=== PATIENT | female | born 1985 | race Hispanic/Latino ===

== ENCOUNTER 2017-03-23 22:13 | Emergency (ER) | payer MEDICAID ==
[2017-03-23 22:33] VITALS: RESP 18; TEMP 98.2; O2SAT 100; BMI 25.0
[2017-03-23] MEDS ORDERED: Albuterol 0.083% Inhal Sol (2.5 mg/3 mL) UD IH STA (23:20)
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
[2017-03-23] MEDS ORDERED: Albuterol-Ipratrop 3 mg / 0.5 (3 ml) UD ONE (23:27)
[2017-03-24 00:48] VITALS: BP 127/74; PULSE 84
--- NOTE | 2017-03-24 10:58 | RAD ---
HISTORY: cough COMPARISON: 12/28/2015 TECHNIQUE: Chest PA and lateral FINDINGS: LUNGS: No active pulmonary disease. PLEURA: No significant pleural effusion identified. No pneumothorax apparent. CARDIOVASCULAR: Normal. OSSEOUS STRUCTURES: No significant abnormalities. VISUALIZED UPPER ABDOMEN: Normal. OTHER FINDINGS: None. IMPRESSION: No active disease.
== END 2017-03-24 00:48 | disposition home or self-care (01) ==
LOC: ED 22:13
DX: J20.9 Acute bronchitis, unspecified (principal); F17.210 Nicotine dependence, cigarettes, uncomplicated
CPT/HCPCS: 71020; 87804; 96372; 99283; J1885

== ENCOUNTER 2017-05-09 16:47 | Emergency (ER) | payer SELFPAY ==
[2017-05-09 16:51] VITALS: BMI 28.3
[2017-05-09 17:04] VITALS: RESP 18; TEMP 98.4; O2SAT 98
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
[2017-05-09 17:35] LABS: BASO # 0.02 K/mm3 (0.0-2.0); BASO % 0.3 % (0.0-3.0); EOS # 0.3 (0.0-0.7); EOS % 3.5 % (1.5-5.0); GRAN # 4.29 (1.4-6.5); GRAN % 56.1 % (50.0-68.0); HEMOGLOBIN 12.2 g/dL (12.0-16.0); LYMPH # 2.6 (1.2-3.4); LYMPH % 33.6 % (22.0-35.0); MEAN CELL VOLUME 83.9 fl (80.0-105.0); MEAN CORPUSCULAR HGB CONC 33.4 g/dl (31.0-37.0); MEAN PLATELET VOLUME 10.3 fl (7.0-11.0); MONO # 0.5 (0.1-0.6); MONO % 6.5 % (1.0-6.0); RBC 4.35 10^6/uL (3.5-6.1); RED CELL DISTRIBUTION WIDTH 13.4 % (11.5-14.5); WHITE BLOOD COUNT 7.7 10^3/ul (4.5-11.0)
[2017-05-09 17:45] LABS: ALB/GLOB RATIO 1.4 (1.1-1.8); ALBUMIN 4.2 g/dL (3.0-4.8); ALT/SGPT 62 U/L (7-56); AST/SGOT 50 U/L (14-36); BLOOD UREA NITROGEN 7 mg/dL (7-21); CALCIUM 9.4 mg/dL (8.4-10.5); GFR AFRICAN-AMERICAN > 60; GFR NON-AFRICAN AMERICAN > 60
[2017-05-09 17:53] LABS: B-TYPE NATRIURETIC PEPTIDE 51.7 pg/mL (0-450)
[2017-05-09 18:29] LABS: URINE BILIRUBIN NEGATIVE (NEGATIVE); URINE BLOOD NEGATIVE (NEGATIVE); URINE GLUCOSE (UA) NEGATIVE (NEGATIVE); URINE LEUKOCYTE ESTERASE NEGATIVE Leu/uL (NEGATIVE); URINE NITRATE NEGATIVE (NEGATIVE); URINE PROTEIN NEGATIVE mg/dL (<30 mg/dL); URINE UROBILINOGEN 0.2 E.U./dL (<1 E.U./dL)
[2017-05-09 18:30] LABS: URINE APPEARANCE CLEAR (CLEAR); URINE COLOR YELLOW (YELLOW)
[2017-05-09 18:49] VITALS: BP 103/76
[2017-05-09 18:53] VITALS: PULSE 86
--- NOTE | 2017-05-10 07:20 | RAD ---
PROCEDURE: CHEST RADIOGRAPH, 1 VIEW HISTORY: leg swelling COMPARISON: Chest radiographs 03/23/2017. FINDINGS: LUNGS: No infiltrate identified bilaterally. PLEURA: No pneumothorax or pleural fluid seen. CARDIOVASCULAR: Normal. OSSEOUS STRUCTURES: No significant abnormalities. VISUALIZED UPPER ABDOMEN: Normal. OTHER FINDINGS: None. IMPRESSION: No interval acute cardiopulmonary disease appreciated.
--- NOTE | 2017-05-10 18:24 | US ---
HISTORY: Leg pain and swelling. Evaluate for DVT PHYSICIAN(S): Dae Swan MD. TECHNIQUE: Duplex sonography and color-flow Doppler with graded compression were used to evaluate the deep venous systems of both lower extremities. FINDINGS: The visualized deep venous systems of both lower extremities are sonographically normal and compressible. Normal wave forms and augmentation are seen. There is no sonographic evidence for deep venous thrombosis in the visualized segments of both lower extremities. IMPRESSION: No sonographic evidence for deep venous thrombosis in the visualized segments of both lower extremities.
== END 2017-05-09 19:13 | disposition home or self-care (01) ==
LOC: ED 16:47
DX: R60.0 Localized edema (principal)
CPT/HCPCS: 71045; 80053; 81003; 83880; 85025; 93970; 96374; 96375; 99284; J1885; J1940

== ENCOUNTER 2017-07-13 14:49 | Emergency (ER) | payer MEDICAID ==
[2017-07-13 14:50] VITALS: BMI 28.3
[2017-07-13 15:18] VITALS: BP 108/68; PULSE 96; RESP 16; TEMP 98.6; O2SAT 96
[2017-07-13] MEDS ORDERED: Oxycodone/Acetaminophen 5/325 mg Tab PO STA (15:51)
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
== END 2017-07-13 16:41 | disposition home or self-care (01) ==
LOC: ED 14:49
DX: L25.9 Unspecified contact dermatitis, unspecified cause (principal); Z79.891 Long term (current) use of opiate analgesic

== ENCOUNTER 2017-07-14 12:47 | Inpatient (IN) | payer MEDICAID ==
[2017-07-14 13:51] LABS: BASO # 0.02 K/mm3 (0.0-2.0); BASO % 0.3 % (0.0-3.0); EOS # 0.3 (0.0-0.7); EOS % 3.7 % (1.5-5.0); GRAN # 3.94 (1.4-6.5); GRAN % 53.3 % (50.0-68.0); HEMOGLOBIN 13.3 g/dL (12.0-16.0); LYMPH # 2.6 (1.2-3.4); LYMPH % 35.1 % (22.0-35.0); MEAN CORPUSCULAR HEMOGLOBIN 27.8 pg (25.0-35.0); MEAN CORPUSCULAR HGB CONC 33.8 g/dl (31.0-37.0); MEAN PLATELET VOLUME 10.5 fl (7.0-11.0); MONO # 0.6 (0.1-0.6); MONO % 7.6 % (1.0-6.0); RBC 4.79 10^6/uL (3.5-6.1); RED CELL DISTRIBUTION WIDTH 14.9 % (11.5-14.5); WHITE BLOOD COUNT 7.4 10^3/ul (4.5-11.0)
[2017-07-14] MEDS: Morphine 4 mg/ml ISec IVP STA ×2 (14:12→15:49)
[2017-07-14] MEDS ORDERED: HYDROmorphone 1 mg/ml ISec IVP STA ×3 (14:21→15:48)
[2017-07-14] MEDS ORDERED: HYDROmorphone 1 mg/ml ISec ONE (14:24)
[2017-07-14 14:30] LABS: ALB/GLOB RATIO 1.5 (1.1-1.8); ALBUMIN 4.2 g/dL (3.0-4.8); CALCIUM 9.4 mg/dL (8.4-10.5); GFR AFRICAN-AMERICAN > 60; GFR NON-AFRICAN AMERICAN > 60
[2017-07-14 14:33] LABS: ALT/SGPT 169 U/L (7-56); AST/SGOT 160 U/L (14-36); BLOOD UREA NITROGEN 9 mg/dL (7-21)
[2017-07-14 15:41] LABS: URINE BILIRUBIN NEGATIVE (NEGATIVE); URINE BLOOD NEGATIVE (NEGATIVE); URINE GLUCOSE (UA) NEGATIVE (NEGATIVE); URINE LEUKOCYTE ESTERASE NEGATIVE Leu/uL (NEGATIVE); URINE PROTEIN NEGATIVE mg/dL (<30 mg/dL); URINE UROBILINOGEN 0.2 E.U./dL (<1 E.U./dL)
[2017-07-14 15:44] LABS: URINE APPEARANCE CLEAR (CLEAR); URINE COLOR YELLOW (YELLOW)
--- NOTE | 2017-07-14 16:25 | CT ---
PROCEDURE: CT Abdomen and Pelvis without intravenous contrast HISTORY: umbilical hernia pain COMPARISON: 12/29/2015 TECHNIQUE: Unenhanced study. Neither oral nor intravenous contrast administered. Radiation dose: Total exam DLP = 645.97 mGy-cm. This CT exam was performed using one or more of the following dose reduction techniques: Automated exposure control, adjustment of the mA and/or kV according to patient size, and/or use of iterative reconstruction technique. FINDINGS: LOWER THORAX: Unremarkable. LIVER: Unremarkable. No gross lesion or ductal dilatation. GALLBLADDER AND BILE DUCTS: Unremarkable. PANCREAS: Unremarkable. No gross lesion or ductal dilatation. SPLEEN: Unremarkable. ADRENALS: Unremarkable. No mass. KIDNEYS AND URETERS: Unremarkable. No hydronephrosis. No solid mass. VASCULATURE: Unremarkable. No aortic aneurysm. BOWEL: Diverticulosis without an acute inflammatory component or other associated pathologic process. Constipation without fecal impaction or obstruction. APPENDIX: Unremarkable. Normal appendix. PERITONEUM: Unremarkable. No free fluid. No free air. LYMPH NODES: Unremarkable. No enlarged lymph nodes. BLADDER: Unremarkable. REPRODUCTIVE: Unremarkable. BONES: No acute fracture. OTHER FINDINGS: None. IMPRESSION: No acute findings related to/accounting for the clinical presentation. Additional benign and/or incidental findings described above. No significant interval change compared to the prior examination(s).
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
[2017-07-14] MEDS ORDERED: Vitamins A & D Oint UD Foilpak TOP PRN (19:25)
[2017-07-14] MEDS ORDERED: Albuterol HFA 90 mcg/actuation (8 g) IH PRN (19:28)
[2017-07-14] MEDS ORDERED: Albuterol-Ipratrop 3 mg / 0.5 (3 ml) UD IH PRN (20:10)
[2017-07-14 20:24] VITALS: BMI 31.6
[2017-07-14] MEDS ORDERED: Pneumococcal 23-Valent Vaccine IM ONE (20:24)
[2017-07-14] MEDS ORDERED: Influenza Vaccine 60 mcg/0.5 mL SYR (4YR UP) IM ONE (20:24)
[2017-07-14] MEDS: Albuterol 0.083% Inhal Sol (2.5 mg/3 mL) UD IH SCH (20:25)
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
[2017-07-14] MEDS: Sodium Chloride 0.9% 1,000 ML IV SCH ×2 (21:03→22:22)
[2017-07-14] MEDS: HYDROmorphone 0.5 mg/0.5 ml ISec IVP PRN (21:03)
[2017-07-15] MEDS: Albuterol 0.083% Inhal Sol (2.5 mg/3 mL) UD IH SCH ×5 (00:23→16:35)
[2017-07-15] MEDS: HYDROmorphone 0.5 mg/0.5 ml ISec IVP PRN ×5 (01:31→21:03)
[2017-07-15] MEDS: Sodium Chloride 0.9% 1,000 ML IV SCH (05:54)
[2017-07-15 07:30] LABS: BASO # 0.03 K/mm3 (0.0-2.0); BASO % 0.5 % (0.0-3.0); EOS # 0.3 (0.0-0.7); EOS % 4.7 % (1.5-5.0); GRAN # 2.77 (1.4-6.5); GRAN % 43.6 % (50.0-68.0); HEMOGLOBIN 12.4 g/dL (12.0-16.0); LYMPH # 2.7 (1.2-3.4); LYMPH % 42.9 % (22.0-35.0); MEAN CELL VOLUME 82.5 fl (80.0-105.0); MEAN CORPUSCULAR HEMOGLOBIN 27.4 pg (25.0-35.0); MEAN CORPUSCULAR HGB CONC 33.2 g/dl (31.0-37.0); MEAN PLATELET VOLUME 10.3 fl (7.0-11.0); MONO # 0.5 (0.1-0.6); MONO % 8.3 % (1.0-6.0); RBC 4.52 10^6/uL (3.5-6.1); RED CELL DISTRIBUTION WIDTH 15.1 % (11.5-14.5); WHITE BLOOD COUNT 6.4 10^3/ul (4.5-11.0)
[2017-07-15 07:44] LABS: ALB/GLOB RATIO 1.5 (1.1-1.8); ALBUMIN 4.4 g/dL (3.0-4.8); ALT/SGPT 210 U/L (7-56); AST/SGOT 173 U/L (14-36); BLOOD UREA NITROGEN 11 mg/dL (7-21); CALCIUM 9.3 mg/dL (8.4-10.5); GFR AFRICAN-AMERICAN > 60; GFR NON-AFRICAN AMERICAN > 60
[2017-07-15] MEDS ORDERED: Bisacodyl 5mg EC Tab PO ONE (08:47)
[2017-07-15 08:51] LABS: BENZODIAZEPINES, UR NEGATIVE (NEGATIVE)
[2017-07-15 08:52] LABS: BARBITURATES, UR NEGATIVE (NEGATIVE); OPIATES, UR POSITIVE (NEGATIVE); PHENCYCLIDINE, UR NEGATIVE (NEGATIVE)
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
--- NOTE | 2017-07-15 10:15 | CP.PCM.PN ---
<Prasad Velasco - Last Filed: 07/15/17 10:11> Subjective - Date & Time of Evaluation Date of Evaluation: 07/15/17 Time of Evaluation: 06:00 - Subjective Subjective: Patient seen and evaluated bedside. No acute issues overnight. Patient complaining on non radiating abdominal pain locate din umbilical region. No other complaints at this time. Objective - Vital Signs/Intake and Output Vital Signs (last 24 hours): Temp Pulse Resp BP Pulse Ox 99 F 98 H 18 122/73 100 07/15/17 06:00 07/15/17 06:00 07/15/17 06:00 07/15/17 06:00 07/15/17 06:00 Intake and Output: 07/15/17 07/15/17 06:59 18:59 Intake Total Balance - Medications Medications: Current Medications Albuterol Sulfate (Albuterol 0.083% Inhal Vanessa (2.5 Mg/3 Ml) Ud) 2.5 mg IH Q4 [facility] Last Admin: 07/15/17 07:26 Dose: 2.5 mg Albuterol/Ipratropium (Duoneb 3 Mg/0.5 Mg (3 Ml) Ud) 3 ml IH Q2H PRN PRN Reason: Shortness of Breath Clonazepam (Klonopin) 1 mg PO 0800,1400,2200 [facility] PRN Reason: Protocol Last Admin: 07/15/17 08:38 Dose: 1 mg Cyclobenzaprine HCl (Flexeril) 10 mg PO 0800,1600,2200 [facility] Last Admin: 07/15/17 08:38 Dose: 10 mg Docusate Sodium (Colace) 100 mg PO TID [facility] Heparin Sodium (Porcine) (Heparin) 5,000 units SC Q12 [facility] PRN Reason: Protocol Last Admin: 07/14/17 22:21 Dose: Not Given Hydromorphone HCl (Dilaudid) 0.5 mg IVP Q4H PRN PRN Reason: Pain, moderate (4-7) Last Admin: 07/15/17 06:01 Dose: 0.5 mg Sodium Chloride (Sodium Chloride 0.9%) 1,000 mls @ 100 mls/hr IV .Q10H [facility] Last Admin: 07/15/17 05:54 Dose: Not Given Ketorolac Tromethamine (Toradol) 15 mg IM Q6 PRN PRN Reason: Pain, Mild (1-3) Stop: 07/19/17 19:27 Last Admin: 07/15/17 03:25 Dose: 15 mg Lorazepam (Ativan) 1 mg IVP Q4H PRN; Protocol PRN Reason: Anxiety Last Admin: 07/15/17 03:29 Dose: 1 mg Nicotine (Nicoderm Cq) 1 patch TD DAILY [facility] Ondansetron HCl (Zofran Inj) 4 mg IVP Q4H PRN PRN Reason: Nausea/Vomiting Pantoprazole Sodium (Protonix Inj) 40 mg IVP DAILY [facility] Polyethylene Glycol (Miralax) 17 gm PO BID [facility] Venlafaxine HCl (Effexor) 50 mg PO 0800,1600 [facility] Vitamin A (Vitamin A & D Oint Ud Foilpak) 1 ea TOP Q2 PRN PRN Reason: Dry mouth - Labs Labs: 07/15/17 07:00 07/15/17 07:00 APTT 31.1 Seconds (25.1-36.5) 07/15/17 07:00 - Constitutional Appears: Non-toxic, No Acute Distress - Head Exam Head Exam: ATRAUMATIC, NORMAL INSPECTION, NORMOCEPHALIC - Eye Exam Eye Exam: EOMI, Normal appearance - ENT Exam ENT Exam: Mucous Membranes Moist - Respiratory Exam Respiratory Exam: Clear to Ausculation Bilateral, NORMAL BREATHING PATTERN - Cardiovascular Exam Cardiovascular Exam: REGULAR RHYTHM - GI/Abdominal Exam GI & Abdominal Exam: Soft, Tenderness - Neurological Exam Neurological Exam: Alert, Awake, Oriented x3 Assessment and Plan - Assessment and Plan (Free Text) Assessment: 31 year old female with a past medical history of asthma, polysubstance abuse, and pancreatitis who presented to [facility] ED with complaints of abdominal pain. Plan: 1. Abdominal Pain -CT Abdomen/Pelvis showed diverticulosis and constipation without obstruction -CBD U/S and abdominal US pending -Normal Saline 100mls/hr -Protonix 40mg IVP daily -Colace 100mg TID -Toradol 15mg Q6 IM PRN and Flexeril 10mg TID for pain control -Zofran PRN for N/V -NPO except medications -Surgery and GI consulted, all recommendations appreciated -liver workup with hepatitis panel and autoimmune serologies -Constipation likely opioid induced, will place on aggressive bowel regimen, miralax bid, dulcolax one time 2. History of Asthma -Duonebs and Albuterol nebs PRN 3. History of Anxiety/Depression -Continue home Effexor and Klonopin -Ativan 1mg IV PRN for anxiety 4. History of Tobacco Abuse -Nicoderm CQ TD daily -Smoking cessation advised 5. History of Polysubstance Abuse -UDS positive for canniboids -Psychiatry consulted, all recommendations appreciated GI Prophylaxis: Protonix DVT Prophylaxis: Heparin and SCD's <Bin Navarro - Last Filed: 07/15/17 18:42> Objective - Vital Signs/Intake and Output Vital Signs (last 24 hours): Temp Pulse Resp BP Pulse Ox 99 F 98 H 18 122/73 100 07/15/17 06:00 07/15/17 06:00 07/15/17 06:00 07/15/17 06:00 07/15/17 06:00 Intake and Output: 07/15/17 07/15/17 06:59 18:59 Intake Total Balance - Medications Medications: Current Medications Albuterol/Ipratropium (Duoneb 3 Mg/0.5 Mg (3 Ml) Ud) 3 ml IH Q2H PRN PRN Reason: Shortness of Breath Benzonatate (Tessalon Perles) 100 mg PO TID [facility] Clonazepam (Klonopin) 1 mg PO 0800,1400,2200 [facility] PRN Reason: Protocol Last Admin: 07/15/17 15:47 Dose: 1 mg Cyclobenzaprine HCl (Flexeril) 10 mg PO 0800,1600,2200 [facility] Last Admin: 07/15/17 16:14 Dose: 10 mg Docusate Sodium (Colace) 100 mg PO TID [facility] Last Admin: 07/15/17 17:41 Dose: 100 mg Heparin Sodium (Porcine) (Heparin) 5,000 units SC Q12 [facility] PRN Reason: Protocol Last Admin: 07/15/17 10:27 Dose: Not Given Home Med (Home Med) 1 unit PO 0700,1500 [facility] Last Admin: 07/15/17 15:46 Dose: 1 unit Hydromorphone HCl (Dilaudid) 0.5 mg IVP Q3 PRN PRN Reason: Pain, moderate (4-7) Sodium Chloride (Sodium Chloride 0.9%) 1,000 mls @ 100 mls/hr IV .Q10H [facility] Last Admin: 07/15/17 05:54 Dose: Not Given Ketorolac Tromethamine (Toradol) 30 mg IVP Q6H [facility] Stop: 07/17/17 11:16 Last Admin: 07/15/17 17:41 Dose: 30 mg Lorazepam (Ativan) 1 mg IVP Q4H PRN; Protocol PRN Reason: Anxiety Last Admin: 07/15/17 03:29 Dose: 1 mg Nicotine (Nicoderm Cq) 1 patch TD DAILY [facility] Last Admin: 07/15/17 10:30 Dose: Not Given Ondansetron HCl (Zofran Inj) 4 mg IVP Q4H PRN PRN Reason: Nausea/Vomiting Pantoprazole Sodium (Protonix Inj) 40 mg IVP DAILY [facility] Last Admin: 07/15/17 10:07 Dose: 40 mg Polyethylene Glycol (Miralax) 17 gm PO BID [facility] Last Admin: 07/15/17 17:40 Dose: 17 gm Vitamin A (Vitamin A & D Oint Ud Foilpak) 1 ea TOP Q2 PRN PRN Reason: Dry mouth - Labs Labs: 07/15/17 07:00 07/15/17 07:00 PT 10.9 SECONDS (9.4-12.5) 07/15/17 13:10 INR 0.96 (0.93-1.08) 07/15/17 13:10 APTT 31.1 Seconds (25.1-36.5) 07/15/17 07:00 Attending/Attestation - Attestation I have personally seen and examined this patient.: Yes I have fully participated in the care of the patient.: Yes I have reviewed all pertinent clinical information, including history, physical exam and plan: Yes Notes (Text): 07/15/17 18:39 attending note; Patient seen and examined with resident. patient is a 31 year old female with a past medical history of asthma, polysubstance abuse, and pancreatitis is admitted with abdominal pain. CT abdomen showed diverticulosis and constipation. Surgery evaluation appreciated. Abdominal ultrasound showed dilated CBD. No intraductal or extra ductal dilatation. Hepatosplenomegaly noted. MRCP ordered. patient with a history of alcohol abuse in the past. currently denies any alcohol or drug abuse. Urine drug screen is positive for opiates and marijuana. Elevated LFTs; monitor closely. GI evaluation with Dr. Lynne appreciated. currently on clear liquid diet. anxiety depression; psychiatric evaluation appreciated. Continue home medication. Pain management with IV Dilaudid and Toradol. Patient was explained in detail about the side effects of narcotics. upon discharge the patient will follow up with PMD .
[2017-07-15] MEDS: POLYETHYLENE GLYCOL 3350 17 GM/Dose PACKET PO SCH ×2 (10:27→17:40)
--- NOTE | 2017-07-15 11:26 | CP.PCM.PN ---
Subjective - Date & Time of Evaluation Date of Evaluation: 07/15/17 Time of Evaluation: 11:23 - Subjective Subjective: Surgery: Dr. Meraz Patient continues to complain of pain to the right of the umbilicus. Pain reproduced with palpation. She denies n/v/f/c. Tolerating diet. Objective - Vital Signs/Intake and Output Vital Signs (last 24 hours): Temp Pulse Resp BP Pulse Ox 99 F 98 H 18 122/73 100 07/15/17 06:00 07/15/17 06:00 07/15/17 06:00 07/15/17 06:00 07/15/17 06:00 Intake and Output: 07/15/17 07/15/17 06:59 18:59 Intake Total Balance - Medications Medications: Current Medications Albuterol Sulfate (Albuterol 0.083% Inhal Vanessa (2.5 Mg/3 Ml) Ud) 2.5 mg IH Q4 [facility] Last Admin: 07/15/17 11:09 Dose: Not Given Albuterol/Ipratropium (Duoneb 3 Mg/0.5 Mg (3 Ml) Ud) 3 ml IH Q2H PRN PRN Reason: Shortness of Breath Clonazepam (Klonopin) 1 mg PO 0800,1400,2200 [facility] PRN Reason: Protocol Last Admin: 07/15/17 08:38 Dose: 1 mg Cyclobenzaprine HCl (Flexeril) 10 mg PO 0800,1600,2200 [facility] Last Admin: 07/15/17 08:38 Dose: 10 mg Docusate Sodium (Colace) 100 mg PO TID [facility] Last Admin: 07/15/17 10:08 Dose: 100 mg Heparin Sodium (Porcine) (Heparin) 5,000 units SC Q12 [facility] PRN Reason: Protocol Last Admin: 07/15/17 10:27 Dose: Not Given Hydromorphone HCl (Dilaudid) 0.5 mg IVP Q4H PRN PRN Reason: Pain, moderate (4-7) Last Admin: 07/15/17 10:08 Dose: 0.5 mg Sodium Chloride (Sodium Chloride 0.9%) 1,000 mls @ 100 mls/hr IV .Q10H [facility] Last Admin: 07/15/17 05:54 Dose: Not Given Ketorolac Tromethamine (Toradol) 15 mg IM Q6 PRN PRN Reason: Pain, Mild (1-3) Stop: 07/19/17 19:27 Last Admin: 07/15/17 03:25 Dose: 15 mg Lorazepam (Ativan) 1 mg IVP Q4H PRN; Protocol PRN Reason: Anxiety Last Admin: 07/15/17 03:29 Dose: 1 mg Nicotine (Nicoderm Cq) 1 patch TD DAILY [facility] Ondansetron HCl (Zofran Inj) 4 mg IVP Q4H PRN PRN Reason: Nausea/Vomiting Pantoprazole Sodium (Protonix Inj) 40 mg IVP DAILY [facility] Last Admin: 07/15/17 10:07 Dose: 40 mg Polyethylene Glycol (Miralax) 17 gm PO BID [facility] Last Admin: 07/15/17 10:27 Dose: Not Given Venlafaxine HCl (Effexor) 50 mg PO 0800,1600 [facility] Vitamin A (Vitamin A & D Oint Ud Foilpak) 1 ea TOP Q2 PRN PRN Reason: Dry mouth - Labs Labs: 07/15/17 07:00 07/15/17 07:00 APTT 31.1 Seconds (25.1-36.5) 07/15/17 07:00 - Constitutional Appears: Non-toxic, No Acute Distress - Head Exam Head Exam: ATRAUMATIC, NORMOCEPHALIC - Eye Exam Eye Exam: EOMI, Normal appearance - ENT Exam ENT Exam: Mucous Membranes Moist - Respiratory Exam Respiratory Exam: NORMAL BREATHING PATTERN. absent: Respiratory Distress - Cardiovascular Exam Cardiovascular Exam: REGULAR RHYTHM. absent: Tachycardia - GI/Abdominal Exam GI & Abdominal Exam: Soft, Tenderness (right to the umbilicus). absent: Guarding, Rigid, Hernia, Rebound Additional comments: No hernia appreciated on exam or CT scan - Neurological Exam Neurological Exam: Alert, Awake, Oriented x3 - Psychiatric Exam Psychiatric exam: Normal Affect, Normal Mood Assessment and Plan - Assessment and Plan (Free Text) Assessment: 31 y/o female w/ abdominal wall pain Plan: -no hernia appreciated on exam or CT scan, would recommend contrast CT but patient reports allergy to both IV and PO contrast -f/u ultrasound -cont reg diet -needs bowel regimen for constipation -no surgical intervention -further recs per Dr. Meraz [facility] PGY3
[2017-07-15] MEDS ORDERED: HYDROmorphone 0.5 mg/0.5 ml ISec IVP STA ×2 (11:34→17:06)
[2017-07-15] MEDS ORDERED: HYDROmorphone 1 mg/ml ISec IVP STA (11:54)
[2017-07-15 13:34] LABS: INR 0.96 (0.93-1.08); PROTHROMBIN TIME 10.9 SECONDS (9.4-12.5)
--- NOTE | 2017-07-15 14:42 | US ---
HISTORY: Elevated LFTs COMPARISON: 08/09/2014 TECHNIQUE: Sonographic evaluation of the abdomen. FINDINGS: LIVER: Measures 21.3 cm. Hepatopedal blood flow. Fatty infiltration manifest ultrasonographically as increased echogenicity of the liver parenchyma. No mass. No intrahepatic bile duct dilatation. GALLBLADDER: Status post cholecystectomy. No abnormality is seen in the gallbladder fossa. COMMON BILE DUCT: Measures 14.6 mm tapering to 12.4 mm. . Dilated common bile duct without intrinsic or extrinsic abnormality. PANCREAS: Unremarkable as visualized. No mass. No ductal dilatation. RIGHT KIDNEY: Measures 4 x 10.4cm. Normal echogenicity. No calculus, mass, or hydronephrosis. LEFT KIDNEY: Measures 4.3 x 10.5cm. Normal echogenicity. No calculus, mass, or hydronephrosis. SPLEEN: Splenomegaly. Orthogonal measurements 5.9 x 6 x 13.4 cm AORTA: No aneurysmal dilatation. IVC: Unremarkable. OTHER FINDINGS: None. IMPRESSION: Hepatosplenomegaly without focal abnormality. Hepatopetal blood flow. Dilated common bile duct without intrahepatic bile duct dilatation. No visible intra ductal or extrinsic abnormalities identified.
[2017-07-15] MEDS: VENLAFAXINE 50 MG PO SCH (15:46)
--- NOTE | 2017-07-15 16:38 | CP.PCM.PCO ---
Addendum Addendum: I met with patient at bedside. She is alert and well-oriented to month, location , year and circumstances. She defers on any psychiatric management at this time , indicating that she "had no idea that psychiatry was contacted". She denies any acute psychiatric issues. She is not suicidal and denies thoughts to harm others. Her thought process is clear and organized. Delusions were not elicited. She does not present as an acute danger to herself or others. At this time psychiatry will respect patient's wishes and sign off. Patient aware she may request our f/u at any time if she should change her mind. 07/15/17 16:37
[2017-07-15 17:22] LABS: TOTAL IRON BINDING CAPACITY 408 ug/dL (265-497)
[2017-07-15 17:38] LABS: % IRON SATURATION 29 % (20-55)
[2017-07-15 17:43] LABS: IMMUNOGLOBULIN A 147.3 mg/dL (70.0-400.0); IMMUNOGLOBULIN G 961.8 mg/dL (700.0-1600.0); IMMUNOGLOBULIN M 141.7 mg/dL (40.0-230.0)
[2017-07-15 17:46] LABS: IRON 121 ug/dL (45-180)
[2017-07-15] MEDS ORDERED: Albuterol 0.083% Inhal Sol (2.5 mg/3 mL) UD IH PRN (18:39)
[2017-07-16] MEDS: HYDROmorphone 0.5 mg/0.5 ml ISec IVP PRN ×5 (00:06→21:33)
[2017-07-16] MEDS: Sodium Chloride 0.9% 1,000 ML IV SCH ×3 (02:49→21:34)
[2017-07-16] MEDS ORDERED: Mineral Oil Enema 135 ml RC PRN (07:34)
[2017-07-16 07:46] LABS: BASO # 0.02 K/mm3 (0.0-2.0); BASO % 0.3 % (0.0-3.0); EOS # 0.3 (0.0-0.7); EOS % 4.8 % (1.5-5.0); GRAN # 2.54 (1.4-6.5); GRAN % 43.6 % (50.0-68.0); HEMOGLOBIN 11.4 g/dL (12.0-16.0); LYMPH # 2.6 (1.2-3.4); LYMPH % 44.8 % (22.0-35.0); MEAN CELL VOLUME 82.9 fl (80.0-105.0); MEAN CORPUSCULAR HEMOGLOBIN 27.4 pg (25.0-35.0); MEAN PLATELET VOLUME 10.1 fl (7.0-11.0); MONO # 0.4 (0.1-0.6); MONO % 6.5 % (1.0-6.0); RBC 4.16 10^6/uL (3.5-6.1); RED CELL DISTRIBUTION WIDTH 15.2 % (11.5-14.5); WHITE BLOOD COUNT 5.8 10^3/ul (4.5-11.0)
[2017-07-16 07:56] LABS: ALB/GLOB RATIO 1.4 (1.1-1.8); ALBUMIN 3.7 g/dL (3.0-4.8); ALT/SGPT 195 U/L (7-56); AST/SGOT 122 U/L (14-36); BLOOD UREA NITROGEN 8 mg/dL (7-21); CALCIUM 8.7 mg/dL (8.4-10.5); GFR AFRICAN-AMERICAN > 60; GFR NON-AFRICAN AMERICAN > 60
[2017-07-16] MEDS: VENLAFAXINE 50 MG PO SCH ×2 (08:28→16:41)
[2017-07-16 08:34] LABS: HEPATITIS B SURFACE AG Negative (NEGATIVE)
[2017-07-16 08:39] LABS: HEPATITIS A IGM NEGATIVE (NEGATIVE); HEPATITIS B CORE AB NEGATIVE (NEGATIVE)
[2017-07-16 08:51] LABS: HEPATITIS C ANTIBODY NEGATIVE (NEGATIVE)
[2017-07-16] MEDS: POLYETHYLENE GLYCOL 3350 17 GM/Dose PACKET PO SCH ×3 (10:00→18:42)
[2017-07-16] MEDS ORDERED: HYDROmorphone 1 mg/ml ISec IVP PRN ×2 (10:22→15:12)
--- NOTE | 2017-07-16 12:42 | CP.PCM.PN ---
<Zohaib Lind - Last Filed: 07/16/17 12:33> Subjective - Date & Time of Evaluation Date of Evaluation: 07/16/17 Time of Evaluation: 12:33 - Subjective Subjective: Medicine Progress Note: Patient seen and assessed at bedside. Patient and nursing staff report that patient had multiple episodes of abdominal pain requiring PRN Dilaudid administration. Patient reports that her current dosage is not relieving her pain for very long and request an increase in her dosage. She denies any bowel movements since her admission. She denies fever, chills, headache, chest pain, SOB, vomiting, diarrhea, pain with urination, or skin changes. Objective - Vital Signs/Intake and Output Vital Signs (last 24 hours): Temp Pulse Resp BP Pulse Ox 97.4 F L 60 18 109/64 97 07/16/17 07:43 07/16/17 07:43 07/16/17 07:43 07/16/17 07:43 07/16/17 07:43 Intake and Output: 07/16/17 07/16/17 06:59 18:59 Intake Total 1020 Balance 1020 - Medications Medications: Current Medications Albuterol Sulfate (Albuterol 0.083% Inhal Vanessa (2.5 Mg/3 Ml) Ud) 2.5 mg IH Q4 PRN PRN Reason: Shortness of Breath Albuterol/Ipratropium (Duoneb 3 Mg/0.5 Mg (3 Ml) Ud) 3 ml IH Q2H PRN PRN Reason: Shortness of Breath Benzonatate (Tessalon Perles) 100 mg PO TID [facility] Clonazepam (Klonopin) 1 mg PO 0800,1400,2200 [facility] PRN Reason: Protocol Last Admin: 07/16/17 08:28 Dose: 1 mg Cyclobenzaprine HCl (Flexeril) 10 mg PO 0800,1600,2200 [facility] Last Admin: 07/16/17 08:28 Dose: 10 mg Heparin Sodium (Porcine) (Heparin) 5,000 units SC Q12 [facility] PRN Reason: Protocol Last Admin: 07/16/17 12:15 Dose: Not Given Home Med (Home Med) 1 unit PO 0700,1500 [facility] Last Admin: 07/16/17 08:28 Dose: 1 unit Hydromorphone HCl (Dilaudid) 1 mg IVP ONCE PRN PRN Reason: Pain, severe (8-10) Hydromorphone HCl (Dilaudid) 0.5 mg IVP Q4H PRN PRN Reason: Pain, moderate (4-7) Sodium Chloride (Sodium Chloride 0.9%) 1,000 mls @ 100 mls/hr IV .Q10H [facility] Last Admin: 07/16/17 02:56 Dose: 100 mls/hr Ketorolac Tromethamine (Toradol) 30 mg IVP Q6H [facility] Stop: 07/17/17 11:16 Last Admin: 07/16/17 12:15 Dose: 30 mg Lorazepam (Ativan) 1 mg IVP Q4H PRN; Protocol PRN Reason: Anxiety Last Admin: 07/16/17 09:27 Dose: 1 mg Mineral Oil (Fleet Mineral Oil Enema) 135 ml RC BID PRN PRN Reason: Constipation Nicotine (Nicoderm Cq) 1 patch TD DAILY [facility] Last Admin: 07/15/17 10:30 Dose: Not Given Ondansetron HCl (Zofran Inj) 4 mg IVP Q4H PRN PRN Reason: Nausea/Vomiting Pantoprazole Sodium (Protonix Ec Tab) 40 mg PO 0600 [facility] Polyethylene Glycol (Miralax) 17 gm PO TID [facility] Vitamin A (Vitamin A & D Oint Ud Foilpak) 1 ea TOP Q2 PRN PRN Reason: Dry mouth - Labs Labs: 07/16/17 07:00 07/16/17 07:00 PT 10.9 SECONDS (9.4-12.5) 07/15/17 13:10 INR 0.96 (0.93-1.08) 07/15/17 13:10 APTT 31.1 Seconds (25.1-36.5) 07/15/17 07:00 - Constitutional Appears: Non-toxic, No Acute Distress - Head Exam Head Exam: ATRAUMATIC, NORMOCEPHALIC - Eye Exam Eye Exam: EOMI, Normal appearance Pupil Exam: NORMAL ACCOMODATION, PERRL - ENT Exam ENT Exam: Mucous Membranes Moist, Normal Exam - Neck Exam Neck Exam: Full ROM, Normal Inspection. absent: Lymphadenopathy - Respiratory Exam Respiratory Exam: Clear to Ausculation Bilateral, NORMAL BREATHING PATTERN. absent: Accessory Muscle Use, Rales, Rhonchi, Wheezes, Respiratory Distress - Cardiovascular Exam Cardiovascular Exam: REGULAR RHYTHM, RRR, +S1, +S2. absent: Bradycardia, Tachycardia, Clicks, Diastolic murmur, Gallop, Irregular Rhythm, JVD, Rubs, +S4 , Murmur - GI/Abdominal Exam GI & Abdominal Exam: Distended, Soft, Tenderness (Diffusely to light palpation; Disproportionate to exam and clinical impression), Hernia (Reducible umbilical hernia), Normal Bowel Sounds, Rebound. absent: Bruit, Firm, Guarding, Rigid, Diminished Bowel Sounds, Hyperactive Bowel Sounds, Hypoactive Bowel Sounds, Mass , Organomegaly, Pulsatile Mass - Extremities Exam Extremities Exam: Full ROM, Normal Capillary Refill, Normal Inspection. absent : Calf Tenderness, Joint Swelling, Pedal Edema, Tenderness - Neurological Exam Neurological Exam: Alert, Awake, CN II-XII Intact, Normal Gait, Oriented x3 - Psychiatric Exam Psychiatric exam: Normal Affect, Normal Mood - Skin Skin Exam: Dry, Intact, Normal Color, Warm Assessment and Plan - Assessment and Plan (Free Text) Assessment: 31 year old female with a past medical history of asthma, polysubstance abuse, and pancreatitis who presented with periumbilical abdominal pain. Patient was found to have elevated AST and ALT. CT Abdomen/Pelvis showed diverticulosis and constipation. Abdominal Ultrasound revealed CBD measuring 14mm and tapering to 12mm with previous CBD measuring 9mm in 2015 on MRCP post cholecystectomy. MRCP was recommended and ordered. Surgery also recommended that high dose opioid's should be avoided and tapered as tolerated to prevent worsening ileus. Plan: 1. Abdominal Pain -CT Abdomen/Pelvis showed diverticulosis and constipation without obstruction -CBD Ultrasound showed dilated CBD to 14.6mm with no intrinsic or extrinsic abnormality -MRCP pending -Tapered Dilaudid from 0.5mg IV Q3 PRN to Q4 PRN at the same dose as to prevent worsening ileus -Continue Miralax and Fleet Enema's PRN for constipation -Continue Protonix 40mg IVP daily -Continue Toradol and Flexeril for pain control -Continue Zofran PRN for N/V -Continue Normal Saline 100mls/hr -NPO diet for MRCP -Surgery and GI consulted, all recommendations appreciated 2. Transaminitis -Downtrending -Hepatitis panel negative -Autoimmune workup pending 3. History of Asthma -Continue Duonebs and Albuterol nebs PRN -Continue Tessalon Perles 4. History of Anxiety/Depression -Continue home Effexor and Klonopin -Continue Ativan 1mg IV PRN for anxiety 5. History of Tobacco Abuse -Continue Nicoderm CQ TD daily -Smoking cessation advised 6. History of Polysubstance Abuse -UDS positive for opiates (taken after Dilaudid administration) and marijuana -Patient denies use and need for psychiatric evaluation -Provided recommendations for cessation of all illicit drugs -Psychiatry consulted, all recommendations appreciated GI Prophylaxis: Protonix DVT Prophylaxis: Heparin and SCD's Patient seen and case discussed with attending, Dr. Nabil Menon. <Nabil Menon B - Last Filed: 07/16/17 18:14> Objective - Vital Signs/Intake and Output Vital Signs (last 24 hours): Temp Pulse Resp BP Pulse Ox 98 F 80 20 118/77 97 07/16/17 14:00 07/16/17 14:00 07/16/17 14:00 07/16/17 14:00 07/16/17 14:00 - Medications Medications: Current Medications Albuterol Sulfate (Albuterol 0.083% Inhal Vanessa (2.5 Mg/3 Ml) Ud) 2.5 mg IH Q4 PRN PRN Reason: Shortness of Breath Albuterol/Ipratropium (Duoneb 3 Mg/0.5 Mg (3 Ml) Ud) 3 ml IH Q2H PRN PRN Reason: Shortness of Breath Benzonatate (Tessalon Perles) 100 mg PO TID [facility] Last Admin: 07/16/17 13:54 Dose: 100 mg Clonazepam (Klonopin) 1 mg PO 0800,1400,2200 [facility] PRN Reason: Protocol Last Admin: 07/16/17 13:53 Dose: 1 mg Cyclobenzaprine HCl (Flexeril) 10 mg PO 0800,1600,2200 [facility] Last Admin: 07/16/17 08:28 Dose: 10 mg Heparin Sodium (Porcine) (Heparin) 5,000 units SC Q12 [facility] PRN Reason: Protocol Last Admin: 07/16/17 12:15 Dose: Not Given Home Med (Home Med) 1 unit PO 0700,1500 [facility] Last Admin: 07/16/17 08:28 Dose: 1 unit Hydromorphone HCl (Dilaudid) 0.5 mg IVP Q4H PRN PRN Reason: Pain, moderate (4-7) Hydromorphone HCl (Dilaudid) 1 mg IVP ONCE PRN PRN Reason: Pain, severe (8-10) Sodium Chloride (Sodium Chloride 0.9%) 1,000 mls @ 100 mls/hr IV .Q10H [facility] Last Admin: 07/16/17 02:56 Dose: 100 mls/hr Ketorolac Tromethamine (Toradol) 30 mg IVP Q6H [facility] Stop: 07/17/17 11:16 Last Admin: 07/16/17 12:15 Dose: 30 mg Lorazepam (Ativan) 1 mg IVP Q4H PRN; Protocol PRN Reason: Anxiety Last Admin: 07/16/17 13:35 Dose: 1 mg Mineral Oil (Fleet Mineral Oil Enema) 135 ml RC BID PRN PRN Reason: Constipation Nicotine (Nicoderm Cq) 1 patch TD DAILY [facility] Last Admin: 07/15/17 10:30 Dose: Not Given Ondansetron HCl (Zofran Inj) 4 mg IVP Q4H PRN PRN Reason: Nausea/Vomiting Pantoprazole Sodium (Protonix Ec Tab) 40 mg PO 0600 [facility] Polyethylene Glycol (Miralax) 17 gm PO TID [facility] Vitamin A (Vitamin A & D Oint Ud Foilpak) 1 ea TOP Q2 PRN PRN Reason: Dry mouth - Labs Labs: PT 10.9 SECONDS (9.4-12.5) 07/15/17 13:10 INR 0.96 (0.93-1.08) 07/15/17 13:10 APTT 31.1 Seconds (25.1-36.5) 07/15/17 07:00 Attending/Attestation - Attestation I have personally seen and examined this patient.: Yes I have fully participated in the care of the patient.: Yes I have reviewed all pertinent clinical information, including history, physical exam and plan: Yes Notes (Text): I have seen and examined the patient with the resident. Agree with the above note with the following additions/ exceptions: Briefly this is 31 year old female with history of asthma, alcohol abuse, polysubstance abuse (narcotics, marijuana), cholecystectomy and pancreatitis who was admitted with abdominal pain and found to have transaminitis. CT abdomen showed diverticulosis and constipation. Abdominal ultrasound showed dilated CBD and hepatomegaly. MRCP ordered and is pending at this time. GI on board. Discussed with the patient in detail regarding tapering of narcotics as this may worsen ileus and constipation. Patient verbalized understanding. Urine drug screen is positive for opiates and marijuana. Upon discharge the patient will follow up with PMD . Dr Nabil Menon
--- NOTE | 2017-07-16 18:16 | CP.PCM.PN ---
Subjective - Date & Time of Evaluation Date of Evaluation: 07/16/17 Time of Evaluation: 18:14 - Subjective Subjective: Surgery: Dr. Palma Pt seen and examined. Resting comfortably in bed. Still has abd pain. No N/V. For MRCP today. Objective - Vital Signs/Intake and Output Vital Signs (last 24 hours): Temp Pulse Resp BP Pulse Ox 98 F 80 20 118/77 97 07/16/17 14:00 07/16/17 14:00 07/16/17 14:00 07/16/17 14:00 07/16/17 14:00 - Medications Medications: Current Medications Albuterol Sulfate (Albuterol 0.083% Inhal Vanessa (2.5 Mg/3 Ml) Ud) 2.5 mg IH Q4 PRN PRN Reason: Shortness of Breath Albuterol/Ipratropium (Duoneb 3 Mg/0.5 Mg (3 Ml) Ud) 3 ml IH Q2H PRN PRN Reason: Shortness of Breath Benzonatate (Tessalon Perles) 100 mg PO TID [facility] Last Admin: 07/16/17 13:54 Dose: 100 mg Clonazepam (Klonopin) 1 mg PO 0800,1400,2200 [facility] PRN Reason: Protocol Last Admin: 07/16/17 13:53 Dose: 1 mg Cyclobenzaprine HCl (Flexeril) 10 mg PO 0800,1600,2200 [facility] Last Admin: 07/16/17 08:28 Dose: 10 mg Heparin Sodium (Porcine) (Heparin) 5,000 units SC Q12 [facility] PRN Reason: Protocol Last Admin: 07/16/17 12:15 Dose: Not Given Home Med (Home Med) 1 unit PO 0700,1500 [facility] Last Admin: 07/16/17 16:41 Dose: 1 unit Hydromorphone HCl (Dilaudid) 0.5 mg IVP Q4H PRN PRN Reason: Pain, moderate (4-7) Sodium Chloride (Sodium Chloride 0.9%) 1,000 mls @ 100 mls/hr IV .Q10H [facility] Last Admin: 07/16/17 02:56 Dose: 100 mls/hr Ketorolac Tromethamine (Toradol) 30 mg IVP Q6H [facility] Stop: 07/17/17 11:16 Last Admin: 07/16/17 12:15 Dose: 30 mg Lorazepam (Ativan) 1 mg IVP Q4H PRN; Protocol PRN Reason: Anxiety Last Admin: 07/16/17 17:05 Dose: 1 mg Mineral Oil (Fleet Mineral Oil Enema) 135 ml RC BID PRN PRN Reason: Constipation Nicotine (Nicoderm Cq) 1 patch TD DAILY [facility] Last Admin: 07/15/17 10:30 Dose: Not Given Ondansetron HCl (Zofran Inj) 4 mg IVP Q4H PRN PRN Reason: Nausea/Vomiting Pantoprazole Sodium (Protonix Ec Tab) 40 mg PO 0600 [facility] Polyethylene Glycol (Miralax) 17 gm PO TID [facility] Vitamin A (Vitamin A & D Oint Ud Foilpak) 1 ea TOP Q2 PRN PRN Reason: Dry mouth - Labs Labs: PT 10.9 SECONDS (9.4-12.5) 07/15/17 13:10 INR 0.96 (0.93-1.08) 07/15/17 13:10 APTT 31.1 Seconds (25.1-36.5) 07/15/17 07:00 - Constitutional Appears: Non-toxic, No Acute Distress - Head Exam Head Exam: ATRAUMATIC, NORMOCEPHALIC - Eye Exam Eye Exam: EOMI - ENT Exam ENT Exam: Mucous Membranes Moist, Normal External Ear Exam - Neck Exam Neck Exam: Full ROM - Respiratory Exam Respiratory Exam: NORMAL BREATHING PATTERN. absent: Accessory Muscle Use, Respiratory Distress - GI/Abdominal Exam GI & Abdominal Exam: Soft, Tenderness (diffuse). absent: Distended, Firm, Guarding, Rigid, Rebound - Extremities Exam Extremities Exam: absent: Calf Tenderness, Pedal Edema - Neurological Exam Neurological Exam: Alert, Awake, Oriented x3 - Skin Skin Exam: Dry, Warm Assessment and Plan - Assessment and Plan (Free Text) Assessment: 31F w. abd pain and dilated CBD -LFTs trending down -F/U MRCP -Further recommendations pending MRCP results -d/w attending Zemaitis PGY3
--- NOTE | 2017-07-16 20:12 | MRI ---
EXAM: MR Abdomen Without Intravenous Contrast, MRCP Protocol EXAM DATE/TIME: 07/16/2017 5:05 PM CLINICAL HISTORY: 31 years old, female; Signs and symptoms; Other: Dilated cbd; Prior surgery; Surgery date: 6+ months; Surgery type: Appendix; Additional info: Cbd dilatation TECHNIQUE: Multiplanar magnetic resonance images of the abdomen without intravenous contrast using MRCP protocol. COMPARISON: No relevant prior studies available. FINDINGS: BILE DUCTS: Biliary ductal dilatation, involving the common bile duct, which measures up to 1.2 cm in diameter. There is smooth tapering of the common bile duct distally, in the head of the pancreas region. No common bile duct stones are visualized. No evidence of diffuse intrahepatic biliary ductal dilatation. GALLBLADDER: Gallbladder is surgically absent. LIVER: Liver is enlarged, and demonstrates fatty infiltration. PANCREAS: No findings to suggest significant acute pancreatitis. No definite focal pancreatic mass is seen. No evidence of significant pancreatic ductal dilatation. IMPRESSION: - Dilatation of the common bile duct, 1.2 cm, with tapering of the common bile duct distally, in the head of the pancreas region. No cause for this finding is seen on this exam. No common bile duct stones visualized. The dilatation could be secondary to the postcholecystectomy state. Recommend correlation with LFTs for laboratory evidence of biliary obstruction, and further workup as clinically indicated, such as with ERCP. - See above for remaining findings.
[2017-07-17] MEDS: HYDROmorphone 0.5 mg/0.5 ml ISec IVP PRN ×3 (03:21→12:10)
[2017-07-17] MEDS ORDERED: HYDROmorphone 0.5 mg/0.5 ml ISec IVP STA (03:56)
[2017-07-17] MEDS ORDERED: Pantoprazole 40 mg EC Tab PO SCH (06:00)
--- NOTE | 2017-07-17 07:49 | CP.PCM.PN ---
<Daniella Hill - Last Filed: 07/17/17 12:21> Subjective - Date & Time of Evaluation Date of Evaluation: 07/17/17 Time of Evaluation: 07:30 - Subjective Subjective: GI Fellow PGY4 Progress Note Pt seen and evaluated at bedside, pt sitting in bed appears comfortable with no N/V, F/C. She reports extreme pain and requesting pain medication. Per nursing, pt has refused her miralax and fleet enema. Pt did use a tap water enema by herself and reported a large BM to nursing but not witnessed. Pt reports her pain is getting worse and abdomen more distended. Tolerating liquid diet. ROS: A 12pt ROS was negative except as above. Objective - Vital Signs/Intake and Output Vital Signs (last 24 hours): Temp Pulse Resp BP Pulse Ox 98 F 80 20 118/77 97 07/16/17 14:00 07/16/17 14:00 07/16/17 14:00 07/16/17 14:00 07/16/17 14:00 Intake and Output: 07/17/17 07/17/17 06:59 18:59 Intake Total 1200 Balance 1200 - Medications Medications: Current Medications Albuterol Sulfate (Albuterol 0.083% Inhal Vanessa (2.5 Mg/3 Ml) Ud) 2.5 mg IH Q4 PRN PRN Reason: Shortness of Breath Albuterol/Ipratropium (Duoneb 3 Mg/0.5 Mg (3 Ml) Ud) 3 ml IH Q2H PRN PRN Reason: Shortness of Breath Benzonatate (Tessalon Perles) 100 mg PO TID [facility] Last Admin: 07/16/17 18:44 Dose: Not Given Clonazepam (Klonopin) 1 mg PO 0800,1400,2200 [facility] PRN Reason: Protocol Last Admin: 07/16/17 21:33 Dose: 1 mg Cyclobenzaprine HCl (Flexeril) 10 mg PO 0800,1600,2200 [facility] Last Admin: 07/16/17 21:33 Dose: 10 mg Heparin Sodium (Porcine) (Heparin) 5,000 units SC Q12 [facility] PRN Reason: Protocol Last Admin: 07/16/17 21:35 Dose: Not Given Home Med (Home Med) 1 unit PO 0700,1500 [facility] Last Admin: 07/16/17 16:41 Dose: 1 unit Hydromorphone HCl (Dilaudid) 0.5 mg IVP Q4H PRN PRN Reason: Pain, moderate (4-7) Last Admin: 07/17/17 03:21 Dose: 0.5 mg Sodium Chloride (Sodium Chloride 0.9%) 1,000 mls @ 100 mls/hr IV .Q10H [facility] Last Admin: 07/16/17 21:34 Dose: Not Given Ketorolac Tromethamine (Toradol) 30 mg IVP Q6H [facility] Stop: 07/17/17 11:16 Last Admin: 07/17/17 04:08 Dose: 30 mg Lorazepam (Ativan) 1 mg IVP Q4H PRN; Protocol PRN Reason: Anxiety Last Admin: 07/17/17 03:27 Dose: 1 mg Mineral Oil (Fleet Mineral Oil Enema) 135 ml RC BID PRN PRN Reason: Constipation Nicotine (Nicoderm Cq) 1 patch TD DAILY [facility] Last Admin: 07/16/17 18:42 Dose: Not Given Ondansetron HCl (Zofran Inj) 4 mg IVP Q4H PRN PRN Reason: Nausea/Vomiting Pantoprazole Sodium (Protonix Ec Tab) 40 mg PO 0600 [facility] Last Admin: 07/17/17 05:26 Dose: Not Given Polyethylene Glycol (Miralax) 17 gm PO TID [facility] Last Admin: 07/16/17 18:42 Dose: Not Given Vitamin A (Vitamin A & D Oint Ud Foilpak) 1 ea TOP Q2 PRN PRN Reason: Dry mouth - Labs Labs: PT 10.9 SECONDS (9.4-12.5) 07/15/17 13:10 INR 0.96 (0.93-1.08) 07/15/17 13:10 APTT 31.1 Seconds (25.1-36.5) 07/15/17 07:00 - Constitutional Appears: Non-toxic, No Acute Distress - Head Exam Head Exam: ATRAUMATIC, NORMAL INSPECTION, NORMOCEPHALIC - Eye Exam Eye Exam: EOMI, Normal appearance, PERRL Pupil Exam: PERRL - ENT Exam ENT Exam: Mucous Membranes Moist - Neck Exam Neck Exam: Full ROM, Normal Inspection - Respiratory Exam Respiratory Exam: Clear to Ausculation Bilateral, NORMAL BREATHING PATTERN - Cardiovascular Exam Cardiovascular Exam: REGULAR RHYTHM, RRR, +S1 - GI/Abdominal Exam GI & Abdominal Exam: Distended, Soft, Tenderness, Normal Bowel Sounds. absent: Firm, Guarding, Rigid, Organomegaly - Rectal Exam Rectal Exam: Deferred - Extremities Exam Extremities Exam: Full ROM, Normal Inspection - Back Exam Back Exam: NORMAL INSPECTION - Neurological Exam Neurological Exam: Alert, Awake, Oriented x3 - Psychiatric Exam Psychiatric exam: Normal Affect, Normal Mood - Skin Skin Exam: Dry, Intact, Normal Color, Warm Assessment and Plan - Assessment and Plan (Free Text) Assessment: This is a 31yF with pmhx of alcoholic pancreatitis presenting with periumbilical pain. 1. Abdominal pain 2. Elevated LFTs 3. Fatty Liver 4. Constipation 5. Hx of alcohol and polysubstance abuse Plan: -Continue supportive care -Avoid narcotics with worsening constipation and developing ileus -Pt with small umbilical hernia, pain out of proportion to exam -Constipation, pt on aggressive bowel regimen, miralax tid, enemas -Diet as tolerated -Pt with elevated LFTs trending down, likely from fatty liver as seen on imaging with significant weight gain as documented -MRCP with CBD 1.2cm likely post choelcystectomy, no CBD stone, no pancreatic mass -Recommend EUS to look for any PD or CBD pathology as an elective outpt procedure, no biliary pain -Hepatitis panel negative and autoimmune serologies pending -Pt will need to followup outpt with LFT monitoring, likely due to fatty liver -Please call with any questions or concerns <Luis Enrique Javed - Last Filed: 07/17/17 13:02> Objective - Vital Signs/Intake and Output Vital Signs (last 24 hours): Temp Pulse Resp BP Pulse Ox 98.0 F 81 18 112/68 96 07/17/17 08:38 07/17/17 08:38 07/17/17 08:38 07/17/17 08:38 07/17/17 08:38 Intake and Output: 07/17/17 07/17/17 06:59 18:59 Intake Total 1200 Balance 1200 - Medications Medications: Current Medications Albuterol/Ipratropium (Duoneb 3 Mg/0.5 Mg (3 Ml) Ud) 3 ml IH Q2H PRN PRN Reason: Shortness of Breath Benzonatate (Tessalon Perles) 100 mg PO TID [facility] Last Admin: 07/17/17 10:58 Dose: 100 mg Clonazepam (Klonopin) 1 mg PO 0800,1400,2200 [facility] PRN Reason: Protocol Last Admin: 07/17/17 08:00 Dose: 1 mg Cyclobenzaprine HCl (Flexeril) 10 mg PO 0800,1600,2200 [facility] Last Admin: 07/17/17 08:01 Dose: 10 mg Heparin Sodium (Porcine) (Heparin) 5,000 units SC Q12 [facility] PRN Reason: Protocol Last Admin: 07/17/17 10:59 Dose: Not Given Home Med (Home Med) 1 unit PO 0700,1500 [facility] Last Admin: 07/17/17 08:00 Dose: 1 unit Hydromorphone HCl (Dilaudid) 0.5 mg IVP Q4H PRN PRN Reason: Pain, moderate (4-7) Last Admin: 07/17/17 12:10 Dose: 0.5 mg Sodium Chloride (Sodium Chloride 0.9%) 1,000 mls @ 100 mls/hr IV .Q10H [facility] Last Admin: 07/17/17 10:58 Dose: Not Given Lorazepam (Ativan) 1 mg IVP Q4H PRN; Protocol PRN Reason: Anxiety Last Admin: 07/17/17 12:11 Dose: 1 mg Mineral Oil (Fleet Mineral Oil Enema) 135 ml RC BID PRN PRN Reason: Constipation Nicotine (Nicoderm Cq) 1 patch TD DAILY [facility] Last Admin: 07/17/17 10:58 Dose: Not Given Ondansetron HCl (Zofran Inj) 4 mg IVP Q4H PRN PRN Reason: Nausea/Vomiting Pantoprazole Sodium (Protonix Ec Tab) 40 mg PO 0600 [facility] Last Admin: 07/17/17 05:26 Dose: Not Given Polyethylene Glycol (Miralax) 17 gm PO TID [facility] Last Admin: 07/17/17 11:03 Dose: Not Given Vitamin A (Vitamin A & D Oint Ud Foilpak) 1 ea TOP Q2 PRN PRN Reason: Dry mouth - Labs Labs: 07/17/17 08:30 07/17/17 08:30 PT 10.9 SECONDS (9.4-12.5) 07/15/17 13:10 INR 0.96 (0.93-1.08) 07/15/17 13:10 APTT 31.1 Seconds (25.1-36.5) 07/15/17 07:00 Attending/Attestation - Attestation I have personally seen and examined this patient.: Yes I have fully participated in the care of the patient.: Yes I have reviewed all pertinent clinical information, including history, physical exam and plan: Yes Notes (Text): 07/17/17 12:56 31 year old female with past medical history of alcohol abuse, s/p cholecystectomy admitted with 4 days of periumbilical abdominal pain, also with elevated LFTs and dilated CBD. Reviewed her imaging with radiology. She has a chronically dilated CBD that tapers abruptly as it enters the duodenum, without evidence of stone. Would recommend an elective EUS for further evaluation this area. Her abdominal pain does not fit a pancreaticobiliary pattern so this finding of a dilated CBD is unlikely to be related to her abdominal pain. An EUS could also be useful to evaluate her for chronic pancreatitis, although CT did not show evidence of this, an EUS might. Chronic narcotic use may also cause dilation of the bile duct, as well as causing other chronic GI side effects including constipation. Would minimize narcotics if possible. Her elevated LFTs are in a hepatocellular pattern, not a cholestatic pattern. This could be related to some combination of past Etoh abuse and NAFLD. Eval for other chronic liver disease has been so far negative. Ok to discharge from GI standpoint. Patient may follow up as outpatient for EUS.
[2017-07-17] MEDS: VENLAFAXINE 50 MG PO SCH (08:00)
[2017-07-17 09:08] LABS: CERULOPLASMIN 27 mg/dL (18-53)
[2017-07-17 09:11] LABS: BASO # 0.01 K/mm3 (0.0-2.0); BASO % 0.2 % (0.0-3.0); EOS # 0.3 (0.0-0.7); EOS % 4.8 % (1.5-5.0); GRAN # 3.35 (1.4-6.5); GRAN % 51.8 % (50.0-68.0); HEMOGLOBIN 11.2 g/dL (12.0-16.0); LYMPH # 2.3 (1.2-3.4); LYMPH % 36.2 % (22.0-35.0); MEAN CELL VOLUME 83.3 fl (80.0-105.0); MEAN CORPUSCULAR HEMOGLOBIN 27.5 pg (25.0-35.0); MEAN CORPUSCULAR HGB CONC 32.9 g/dl (31.0-37.0); MEAN PLATELET VOLUME 10.3 fl (7.0-11.0); MONO # 0.5 (0.1-0.6); RBC 4.08 10^6/uL (3.5-6.1); RED CELL DISTRIBUTION WIDTH 15.1 % (11.5-14.5); WHITE BLOOD COUNT 6.5 10^3/ul (4.5-11.0)
[2017-07-17 09:22] LABS: ALB/GLOB RATIO 1.3 (1.1-1.8); ALBUMIN 3.7 g/dL (3.0-4.8); ALT/SGPT 155 U/L (7-56); AST/SGOT 67 U/L (14-36); BLOOD UREA NITROGEN 11 mg/dL (7-21); CALCIUM 9.5 mg/dL (8.4-10.5); GFR AFRICAN-AMERICAN > 60; GFR NON-AFRICAN AMERICAN > 60
[2017-07-17] MEDS: POLYETHYLENE GLYCOL 3350 17 GM/Dose PACKET PO SCH ×2 (10:58→11:03)
[2017-07-17] MEDS: Sodium Chloride 0.9% 1,000 ML IV SCH (10:58)
--- NOTE | 2017-07-17 11:13 | CP.PCM.PN ---
Subjective - Date & Time of Evaluation Date of Evaluation: 07/17/17 Time of Evaluation: 11:11 - Subjective Subjective: Surgery: Dr. Meraz Pt seen and examined. Continues to have abd pain, unchanged, no alleviating factors. Tolerating CLD. No N/V. Objective - Vital Signs/Intake and Output Vital Signs (last 24 hours): Temp Pulse Resp BP Pulse Ox 98.0 F 81 18 112/68 96 07/17/17 08:38 07/17/17 08:38 07/17/17 08:38 07/17/17 08:38 07/17/17 08:38 Intake and Output: 07/17/17 07/17/17 06:59 18:59 Intake Total 1200 Balance 1200 - Medications Medications: Current Medications Albuterol/Ipratropium (Duoneb 3 Mg/0.5 Mg (3 Ml) Ud) 3 ml IH Q2H PRN PRN Reason: Shortness of Breath Benzonatate (Tessalon Perles) 100 mg PO TID [facility] Last Admin: 07/17/17 10:58 Dose: 100 mg Clonazepam (Klonopin) 1 mg PO 0800,1400,2200 [facility] PRN Reason: Protocol Last Admin: 07/17/17 08:00 Dose: 1 mg Cyclobenzaprine HCl (Flexeril) 10 mg PO 0800,1600,2200 [facility] Last Admin: 07/17/17 08:01 Dose: 10 mg Heparin Sodium (Porcine) (Heparin) 5,000 units SC Q12 [facility] PRN Reason: Protocol Last Admin: 07/17/17 10:59 Dose: Not Given Home Med (Home Med) 1 unit PO 0700,1500 [facility] Last Admin: 07/17/17 08:00 Dose: 1 unit Hydromorphone HCl (Dilaudid) 0.5 mg IVP Q4H PRN PRN Reason: Pain, moderate (4-7) Last Admin: 07/17/17 08:01 Dose: 0.5 mg Sodium Chloride (Sodium Chloride 0.9%) 1,000 mls @ 100 mls/hr IV .Q10H [facility] Last Admin: 07/17/17 10:58 Dose: Not Given Ketorolac Tromethamine (Toradol) 30 mg IVP Q6H [facility] Stop: 07/17/17 11:16 Last Admin: 07/17/17 08:00 Dose: 30 mg Lorazepam (Ativan) 1 mg IVP Q4H PRN; Protocol PRN Reason: Anxiety Last Admin: 07/17/17 03:27 Dose: 1 mg Mineral Oil (Fleet Mineral Oil Enema) 135 ml RC BID PRN PRN Reason: Constipation Nicotine (Nicoderm Cq) 1 patch TD DAILY [facility] Last Admin: 07/17/17 10:58 Dose: Not Given Ondansetron HCl (Zofran Inj) 4 mg IVP Q4H PRN PRN Reason: Nausea/Vomiting Pantoprazole Sodium (Protonix Ec Tab) 40 mg PO 0600 [facility] Last Admin: 07/17/17 05:26 Dose: Not Given Polyethylene Glycol (Miralax) 17 gm PO TID [facility] Last Admin: 07/17/17 11:03 Dose: Not Given Vitamin A (Vitamin A & D Oint Ud Foilpak) 1 ea TOP Q2 PRN PRN Reason: Dry mouth - Labs Labs: 07/17/17 08:30 07/17/17 08:30 PT 10.9 SECONDS (9.4-12.5) 07/15/17 13:10 INR 0.96 (0.93-1.08) 07/15/17 13:10 APTT 31.1 Seconds (25.1-36.5) 07/15/17 07:00 - Constitutional Appears: Non-toxic, No Acute Distress - Head Exam Head Exam: ATRAUMATIC, NORMOCEPHALIC - Eye Exam Eye Exam: EOMI - ENT Exam ENT Exam: Mucous Membranes Moist - Neck Exam Neck Exam: Full ROM - Respiratory Exam Respiratory Exam: NORMAL BREATHING PATTERN. absent: Accessory Muscle Use, Respiratory Distress - GI/Abdominal Exam GI & Abdominal Exam: Distended (mild), Soft, Tenderness (R side mary anne-umbilical) , Hernia (R side mary anne-umbilical ). absent: Firm, Guarding, Rigid, Rebound - Extremities Exam Extremities Exam: absent: Calf Tenderness, Pedal Edema - Neurological Exam Neurological Exam: Alert, Awake, Oriented x3 - Psychiatric Exam Psychiatric exam: Normal Affect, Normal Mood - Skin Skin Exam: Dry, Normal Color, Warm Assessment and Plan - Assessment and Plan (Free Text) Assessment: 31F w. abd pain 2/2 enlarged CBD vs. ventral hernia -MRCP: CBD 1.2cm w. distal tapering, likely related to cholecystectomy, however recommend EUS to r/o other possible etiology -no plans for hernia repair until CBD workup complete -d/w attending [facility] PGY3
[2017-07-17 15:59] VITALS: BP 118/75; PULSE 82; RESP 20; TEMP 97.7; O2SAT 97
== END 2017-07-17 18:11 | disposition home or self-care (01) | DRG 813 ==
LOC: ED 12:47 → ERH 18:48 → 5RSO 20:00 → OBSVTOIN 07-16 14:53
PROVIDERS: ADMIT Internal Medicine; ATTEND Hospitalist
DX: R10.32 Left lower quadrant pain (principal); F14.10 Cocaine abuse, uncomplicated; K83.8 Other specified diseases of biliary tract; K76.0 Fatty (change of) liver, not elsewhere classified; K86.1 Other chronic pancreatitis; J45.909 Unspecified asthma, uncomplicated; F32.9 Major depressive disorder, single episode, unspecified; F41.9 Anxiety disorder, unspecified; F12.10 Cannabis abuse, uncomplicated; F17.200 Nicotine dependence, unspecified, uncomplicated; F10.10 Alcohol abuse, uncomplicated; K59.09 Other constipation; K42.9 Umbilical hernia without obstruction or gangrene; K57.90 Diverticulosis of intestine, part unspecified, without perforation or abscess without bleeding; R16.2 Hepatomegaly with splenomegaly, not elsewhere classified

== ENCOUNTER 2017-07-22 21:04 | Inpatient (IN) | payer MEDICAID ==
[2017-07-22 21:20] VITALS: BMI 30.6
[2017-07-22] MEDS ORDERED: Sodium Chloride 0.9% 1,000 ML IV STA (21:36)
[2017-07-22] MEDS ORDERED: HYDROmorphone 0.5 mg/0.5 ml ISec IVP STA (21:38)
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
[2017-07-22] MEDS ORDERED: Morphine 2 mg/ml ISec IVP PRN (22:24)
[2017-07-22 22:30] LABS: BASO # 0.02 K/mm3 (0.0-2.0); BASO % 0.2 % (0.0-3.0); EOS # 0.1 (0.0-0.7); EOS % 1.5 % (1.5-5.0); GRAN # 5.4 (1.4-6.5); GRAN % 57.5 % (50.0-68.0); HEMOGLOBIN 13.2 g/dL (12.0-16.0); LYMPH # 3.2 (1.2-3.4); LYMPH % 33.8 % (22.0-35.0); MEAN CORPUSCULAR HEMOGLOBIN 27.8 pg (25.0-35.0); MEAN CORPUSCULAR HGB CONC 34.7 g/dl (31.0-37.0); MONO # 0.7 (0.1-0.6); RBC 4.75 10^6/uL (3.5-6.1); RED CELL DISTRIBUTION WIDTH 14.7 % (11.5-14.5); WHITE BLOOD COUNT 9.4 10^3/ul (4.5-11.0)
[2017-07-22 22:38] LABS: PROTHROMBIN TIME 11.7 SECONDS (9.4-12.5)
[2017-07-22 22:39] LABS: INR 1.03 (0.93-1.08); PARTIAL THROMBOPLASTIN TIME 34.8 Seconds (25.1-36.5)
[2017-07-22 22:41] LABS: ALB/GLOB RATIO 1.6 (1.1-1.8); ALBUMIN 4.9 g/dL (3.0-4.8); ALT/SGPT 102 U/L (7-56); AMYLASE < 30 U/L (35-125); AST/SGOT 78 U/L (14-36); BLOOD UREA NITROGEN 13 mg/dL (7-21); CALCIUM 10.3 mg/dL (8.4-10.5); GFR AFRICAN-AMERICAN > 60; GFR NON-AFRICAN AMERICAN > 60; LIPASE 26 U/L (23-300)
[2017-07-22 23:19] LABS: URINE BILIRUBIN NEGATIVE (NEGATIVE); URINE BLOOD NEGATIVE (NEGATIVE); URINE GLUCOSE (UA) NEGATIVE (NEGATIVE); URINE LEUKOCYTE ESTERASE NEGATIVE Leu/uL (NEGATIVE); URINE PROTEIN 30 mg/dL (<30 mg/dL); URINE UROBILINOGEN 0.2 E.U./dL (<1 E.U./dL)
[2017-07-22 23:32] LABS: URINE APPEARANCE SL CLOUDY (CLEAR); URINE COLOR YELLOW (YELLOW)
[2017-07-22 23:41] LABS: URINE RBC 0 - 2 /hpf (0-2); URINE WBC 0 - 2 /hpf (0-6)
--- NOTE | 2017-07-23 00:20 | CT ---
EXAM: CT Abdomen and Pelvis Without Intravenous Contrast CLINICAL HISTORY: 31 years old, female; Pain; Abdominal pain; Periumbilical; Patient HX: Umbilical pain TECHNIQUE: Axial computed tomography images of the abdomen and pelvis without intravenous contrast. All CT scans at this facility use one or more dose reduction techniques, viz.: automated exposure control; ma/kV adjustment per patient size (including targeted exams where dose is matched to indication; i.e. head); or iterative reconstruction technique. Coronal and sagittal reformatted images were created and reviewed. COMPARISON: CT - ABD PELVIS W/O PO OR IV CONT 2017-07-14 16:03, MRCP 07/16/2017 FINDINGS: Lower thorax: No acute findings. ABDOMEN: Liver: Unremarkable. Gallbladder and bile ducts: There has been a cholecystectomy. Moderate central and extrahepatic bile duct dilation is unchanged. The common bile duct measures 12 mm. The distal common bile duct stone. Pancreas: Unremarkable. No ductal dilation. Spleen: Unremarkable. No splenomegaly. Adrenals: Unremarkable. No mass. Kidneys and ureters: Unremarkable. No obstructing stones. No hydronephrosis. Stomach and bowel: No obstruction. The descending colon is mildly thick walled but is likely secondary to nondistention. Mild colitis is not completely excluded. Appendix: No findings to suggest acute appendicitis. Normal appendix. PELVIS: Bladder: Unremarkable. No stones. Reproductive: Unremarkable as visualized. ABDOMEN and PELVIS: Intraperitoneal space: Unremarkable. No free air. No significant fluid collection. Bones/joints: No acute fracture. No dislocation. Soft tissues: Unremarkable. Vasculature: Unremarkable. No abdominal aortic aneurysm. Lymph nodes: Unremarkable. No enlarged lymph nodes. IMPRESSION: Mildly thickwalled descending colon most likely secondary to nondistention. Mild colitis is not excluded. No evidence of acute appendicitis. Cholecystectomy with stable extrahepatic bile duct dilation.
[2017-07-23] MEDS ORDERED: Morphine 2 mg/ml ISec IVP STA ×3 (00:44→09:32)
[2017-07-23] MEDS ORDERED: Albuterol-Ipratrop 3 mg / 0.5 (3 ml) UD IH PRN (02:04)
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
[2017-07-23 07:54] LABS: HEMOGLOBIN 11.6 g/dL (12.0-16.0); MEAN CELL VOLUME 80.8 fl (80.0-105.0); MEAN CORPUSCULAR HEMOGLOBIN 27.6 pg (25.0-35.0); MEAN CORPUSCULAR HGB CONC 34.1 g/dl (31.0-37.0); MEAN PLATELET VOLUME 9.7 fl (7.0-11.0); RBC 4.21 10^6/uL (3.5-6.1); WHITE BLOOD COUNT 6.5 10^3/ul (4.5-11.0)
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
[2017-07-23 08:08] LABS: ALB/GLOB RATIO 1.4 (1.1-1.8); ALBUMIN 3.9 g/dL (3.0-4.8); ALT/SGPT 122 U/L (7-56); AST/SGOT 120 U/L (14-36); BLOOD UREA NITROGEN 11 mg/dL (7-21); CALCIUM 8.8 mg/dL (8.4-10.5); GFR AFRICAN-AMERICAN > 60; GFR NON-AFRICAN AMERICAN > 60
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
[2017-07-23] MEDS: POLYETHYLENE GLYCOL 3350 17 GM/Dose PACKET PO SCH ×3 (09:47→17:47)
--- NOTE | 2017-07-23 11:51 | CARD ---
APPROVED REPORT EKG Measurement Heart [id number] <Conclusion> Normal sinus rhythm Normal ECG
[2017-07-23] MEDS: Morphine 2 mg/ml ISec IVP PRN ×3 (12:41→21:00)
[2017-07-24] MEDS: Morphine 2 mg/ml ISec IVP PRN ×4 (00:30→22:17)
[2017-07-24 07:01] LABS: HEMOGLOBIN 11.6 g/dL (12.0-16.0); MEAN CELL VOLUME 81.5 fl (80.0-105.0); MEAN CORPUSCULAR HEMOGLOBIN 27.2 pg (25.0-35.0); MEAN CORPUSCULAR HGB CONC 33.3 g/dl (31.0-37.0); MEAN PLATELET VOLUME 10.2 fl (7.0-11.0); RBC 4.27 10^6/uL (3.5-6.1); RED CELL DISTRIBUTION WIDTH 15.1 % (11.5-14.5)
[2017-07-24 07:52] LABS: ALB/GLOB RATIO 1.3 (1.1-1.8); ALBUMIN 3.6 g/dL (3.0-4.8); ALT/SGPT 94 U/L (7-56); AST/SGOT 56 U/L (14-36); BLOOD UREA NITROGEN 5 mg/dL (7-21); CALCIUM 8.9 mg/dL (8.4-10.5); GFR AFRICAN-AMERICAN > 60; GFR NON-AFRICAN AMERICAN > 60
--- NOTE | 2017-07-24 07:54 | CP.PCM.PN ---
Subjective - Date & Time of Evaluation Date of Evaluation: 07/24/17 Time of Evaluation: 07:50 - Subjective Subjective: Surgery Progress Note: Patient seen and examined at bedside. No acute events overnight. Pt reports abdominal pain overnight. Denies fever, chills, nausea, vomiting. Objective - Vital Signs/Intake and Output Vital Signs (last 24 hours): Temp Pulse Resp BP Pulse Ox 98 F 85 17 116/74 95 07/23/17 14:00 07/23/17 14:00 07/23/17 14:00 07/23/17 14:00 07/23/17 14:00 Intake and Output: 07/24/17 07/24/17 06:59 18:59 Intake Total 0 Balance 0 - Medications Medications: Current Medications Albuterol/Ipratropium (Duoneb 3 Mg/0.5 Mg (3 Ml) Ud) 3 ml IH [id number] PRN PRN Reason: Shortness of Breath Clonazepam (Klonopin) 0.5 mg PO TID PRN; Protocol PRN Reason: Restlessness Last Admin: 07/23/17 23:20 Dose: 0.5 mg Cyclobenzaprine HCl (Flexeril) 10 mg PO TID PRN PRN Reason: Muscle spasm Last Admin: 07/23/17 08:15 Dose: 10 mg Gabapentin (Neurontin) 100 mg PO TID ABBI PRN Reason: Protocol Last Admin: 07/23/17 17:45 Dose: 100 mg Heparin Sodium (Porcine) (Heparin) 5,000 units SC Q12 ABBI PRN Reason: Protocol Last Admin: 07/23/17 22:58 Dose: Not Given Hydroxyzine Pamoate (Vistaril) 50 mg PO Q8 PRN; Protocol PRN Reason: Anxiety Ketorolac Tromethamine (Toradol) 30 mg IVP Q4 PRN PRN Reason: Pain, moderate (4-7) Lorazepam (Ativan) 2 mg IVP Q4 PRN; Protocol PRN Reason: Agitation Last Admin: 07/24/17 05:39 Dose: 2 mg Morphine Sulfate (Morphine) 2 mg IVP Q4H PRN PRN Reason: Pain, severe (8-10) Last Admin: 07/24/17 05:39 Dose: 2 mg Nicotine (Nicoderm Cq) 1 patch TD DAILY PRN PRN Reason: URGE TO SMOKE Ondansetron HCl (Zofran Inj) 4 mg IVP Q4H PRN PRN Reason: Nausea/Vomiting Pantoprazole Sodium (Protonix Inj) 40 mg IVP DAILY [facility] Last Admin: 07/23/17 09:44 Dose: 40 mg Polyethylene Glycol (Miralax) 17 gm PO BID [facility] Last Admin: 07/23/17 17:47 Dose: Not Given Venlafaxine HCl (Effexor) 56.25 mg PO BID [facility] Last Admin: 07/23/17 18:53 Dose: 56.25 mg - Labs Labs: 07/24/17 06:15 07/23/17 07:45 PT 11.7 SECONDS (9.4-12.5) 07/22/17 22:15 INR 1.03 (0.93-1.08) 07/22/17 22:15 APTT 34.8 Seconds (25.1-36.5) 07/22/17 22:15 - Constitutional Appears: Non-toxic, No Acute Distress - Head Exam Head Exam: ATRAUMATIC, NORMOCEPHALIC - Eye Exam Eye Exam: EOMI, PERRL. absent: Conjunctival injection, Nystagmus, Scleral icterus Pupil Exam: NORMAL ACCOMODATION, PERRL. absent: Fixed, Irregular, Unequal - ENT Exam ENT Exam: Mucous Membranes Moist - Neck Exam Neck Exam: Full ROM - Respiratory Exam Respiratory Exam: Clear to Ausculation Bilateral, NORMAL BREATHING PATTERN. absent: Rales, Rhonchi, Wheezes, Stridor - Cardiovascular Exam Cardiovascular Exam: RRR, +S1, +S2. absent: Murmur - GI/Abdominal Exam GI & Abdominal Exam: Soft, Tenderness, Normal Bowel Sounds. absent: Firm, Guarding, Rigid - Extremities Exam Extremities Exam: Normal Inspection. absent: Calf Tenderness, Pedal Edema - Back Exam Back Exam: NORMAL INSPECTION - Neurological Exam Neurological Exam: Alert, Awake, Oriented x3 - Psychiatric Exam Psychiatric exam: Normal Affect, Normal Mood - Skin Skin Exam: Dry, Normal Color, Warm Assessment and Plan - Assessment and Plan (Free Text) Assessment: 31 y/o female with abdominal pain, transaminitis with dilated CBD: -CT abd pelvis: thick descending colon, could be under distention. -patient scheduled for EUS today with GI, prior to surgical intervention -medical management per primary -further recs per Dr. Meraz
[2017-07-24 09:37] LABS: BENZODIAZEPINES, UR NEGATIVE (NEGATIVE)
[2017-07-24 09:47] LABS: BARBITURATES, UR NEGATIVE (NEGATIVE); OPIATES, UR POSITIVE (NEGATIVE); PHENCYCLIDINE, UR NEGATIVE (NEGATIVE)
[2017-07-24] MEDS: POLYETHYLENE GLYCOL 3350 17 GM/Dose PACKET PO SCH ×2 (10:00→17:48)
[2017-07-24] MEDS ORDERED: Midazolam 2 MG/2 ML VIAL ONE ×3 (11:17→11:54)
[2017-07-24] MEDS ORDERED: Midazolam 2 MG/2 ML VIAL IVP ONE (11:19)
[2017-07-24] MEDS ORDERED: Propofol 10 mg/ml Inj (20 ML) ONE (11:54)
[2017-07-24] MEDS: Sodium Chloride 0.9% 1,000 ML IV SCH (14:01)
--- NOTE | 2017-07-24 14:38 | CP.PCM.PN ---
<Zohaib Lind - Last Filed: 07/24/17 14:31> Subjective - Date & Time of Evaluation Date of Evaluation: 07/24/17 Time of Evaluation: 14:31 - Subjective Subjective: Medicine Progress Note: Patient seen and assessed at bedside. Patient reports that she didn't sleep well due to continued abdominal pain that she reports is not being adequately controlled with morphine. However, patient endorses that she is aware that opiate based medications are only harming her and potentially causing her more pain. Otherwise, patient has no complaints. She denies fevers, chills, headache , chest pain, palpitations, SOB, cough, N/V/D/C, pain with urination, skin changes or any numbness/tingling/weakness of any extremity. Objective - Vital Signs/Intake and Output Vital Signs (last 24 hours): Temp Pulse Resp BP Pulse Ox 98 F 69 16 119/71 100 07/24/17 13:30 07/24/17 13:30 07/24/17 13:30 07/24/17 13:30 07/24/17 13:30 Intake and Output: 07/24/17 07/24/17 06:59 18:59 Intake Total 0 Balance 0 - Medications Medications: Current Medications Albuterol/Ipratropium (Duoneb 3 Mg/0.5 Mg (3 Ml) Ud) 3 ml IH [id number] PRN PRN Reason: Shortness of Breath Clonazepam (Klonopin) 0.5 mg PO TID PRN; Protocol PRN Reason: Restlessness Last Admin: 07/23/17 23:20 Dose: 0.5 mg Cyclobenzaprine HCl (Flexeril) 10 mg PO TID PRN PRN Reason: Muscle spasm Last Admin: 07/23/17 08:15 Dose: 10 mg Gabapentin (Neurontin) 100 mg PO TID ABBI PRN Reason: Protocol Last Admin: 07/24/17 10:00 Dose: Not Given Heparin Sodium (Porcine) (Heparin) 5,000 units SC Q12 ABBI PRN Reason: Protocol Last Admin: 07/24/17 12:05 Dose: Not Given Hydroxyzine Pamoate (Vistaril) 50 mg PO Q8 PRN; Protocol PRN Reason: Anxiety Sodium Chloride (Sodium Chloride 0.9%) 1,000 mls @ 100 mls/hr IV .Q10H [facility] Last Admin: 07/24/17 14:01 Dose: 100 mls/hr Ketorolac Tromethamine (Toradol) 30 mg IVP Q4 PRN PRN Reason: Pain, moderate (4-7) Lorazepam (Ativan) 2 mg IVP Q4 PRN; Protocol PRN Reason: Agitation Last Admin: 07/24/17 05:39 Dose: 2 mg Morphine Sulfate (Morphine) 2 mg IVP Q4H PRN PRN Reason: Pain, severe (8-10) Last Admin: 07/24/17 13:59 Dose: 2 mg Nicotine (Nicoderm Cq) 1 patch TD DAILY PRN PRN Reason: URGE TO SMOKE Ondansetron HCl (Zofran Inj) 4 mg IVP Q4H PRN PRN Reason: Nausea/Vomiting Pantoprazole Sodium (Protonix Inj) 40 mg IVP Q12 [facility] Polyethylene Glycol (Miralax) 17 gm PO BID [facility] Last Admin: 07/24/17 10:00 Dose: Not Given Sucralfate (Carafate Tab) 1 gm PO 0600,1600 [facility] Venlafaxine HCl (Effexor) 56.25 mg PO BID [facility] Last Admin: 07/24/17 10:00 Dose: Not Given - Labs Labs: 07/24/17 06:15 07/24/17 06:15 PT 11.7 SECONDS (9.4-12.5) 07/22/17 22:15 INR 1.03 (0.93-1.08) 07/22/17 22:15 APTT 34.8 Seconds (25.1-36.5) 07/22/17 22:15 - Constitutional Appears: Non-toxic, No Acute Distress - Head Exam Head Exam: ATRAUMATIC, NORMOCEPHALIC - Eye Exam Eye Exam: EOMI, Normal appearance Pupil Exam: NORMAL ACCOMODATION, PERRL - ENT Exam ENT Exam: Mucous Membranes Moist, Normal Exam - Neck Exam Neck Exam: Full ROM, Normal Inspection. absent: Lymphadenopathy, Tenderness - Respiratory Exam Respiratory Exam: Clear to Ausculation Bilateral, NORMAL BREATHING PATTERN. absent: Accessory Muscle Use, Chest Wall Tenderness, Decreased Breath Sounds, Prolonged Expiratory Phase, Rales, Rhonchi, Wheezes, Respiratory Distress, Stridor - Cardiovascular Exam Cardiovascular Exam: REGULAR RHYTHM, RRR, +S1, +S2. absent: Bradycardia, Tachycardia, Clicks, Diastolic murmur, Gallop, Irregular Rhythm, JVD, Rubs, +S4 , Murmur - GI/Abdominal Exam GI & Abdominal Exam: Soft, Tenderness (Diffusely TTP), Hernia (Umbilical, reducible), Normal Bowel Sounds. absent: Bruit, Firm, Guarding, Rigid, Diminished Bowel Sounds, Hyperactive Bowel Sounds, Hypoactive Bowel Sounds, Mass , Organomegaly, Pulsatile Mass, Rebound - Extremities Exam Extremities Exam: Full ROM, Normal Capillary Refill, Normal Inspection. absent : Calf Tenderness, Joint Swelling, Pedal Edema, Tenderness - Neurological Exam Neurological Exam: Alert, Awake, CN II-XII Intact, Normal Gait, Oriented x3 - Psychiatric Exam Psychiatric exam: Normal Affect, Normal Mood - Skin Skin Exam: Dry, Intact, Normal Color, Warm Assessment and Plan - Assessment and Plan (Free Text) Assessment: 31 year old female with a past medical history of asthma, polysubstance abuse, and pancreatitis who presented with periumbilical abdominal pain. Patient was found to have elevated AST and ALT, which are downtrending from her previous admission. Patient had EUS done for evaluation of dilated CBD found on MRCP, which showed no further biliary or pancreatic abnormalities appreciated. Plan: 1. Abdominal Pain -EUS revealed a CBD dilated to 8mm with no anatomical abnormalities of the pancreas, esophagitis and gastritis -CT Abdomen/Pelvis showed mild wall thickening of the descending colon with mild colitis no excluded and stable extrahepatic bile duct dilation to 12mm s/p cholecystectomy -Continue Miralax for constipation -Increased Protonix 40mg IVP to Q12 and started Carafate 1mg PO BID -Continue Morphine 2mg IVP Q4H PRN, Neurontin, Toradol and Flexeril for pain control -Continue Zofran PRN for N/V -Continue Normal Saline 100mls/hr -Clear liquid diet -Tentatively scheduled for hernia repair on 07/26 -Surgery and GI consulted, all recommendations appreciated 2. Transaminitis -Downtrending -Hepatitis panel and autoimmune workup negative -Continue to monitor with daily 3. History of Asthma -Continue Albuterol nebs PRN 4. History of Anxiety/Depression -Continue home Effexor, Klonopin and Vistaril -Continue Ativan 1mg IV PRN for anxiety 5. History of Tobacco Abuse -Continue Nicoderm CQ TD daily -Smoking cessation advised 6. History of Polysubstance Abuse -UDS positive only for opiates (taken after morphine administration) -Provided recommendations for cessation of all illicit drugs GI Prophylaxis: Protonix DVT Prophylaxis: Heparin and SCD's Patient seen and case discussed with attending, Dr. Navarro. <Bin Navarro - Last Filed: 07/25/17 11:46> Objective - Vital Signs/Intake and Output Vital Signs (last 24 hours): Temp Pulse Resp BP Pulse Ox 97.9 F 72 20 120/81 98 07/25/17 08:31 07/25/17 08:31 07/25/17 08:31 07/25/17 08:31 07/25/17 08:31 Intake and Output: 07/25/17 07/25/17 06:59 18:59 Intake Total 3360 Balance 3360 - Medications Medications: Current Medications Albuterol/Ipratropium (Duoneb 3 Mg/0.5 Mg (3 Ml) Ud) 3 ml IH [id number] PRN PRN Reason: Shortness of Breath Clonazepam (Klonopin) 0.5 mg PO TID PRN; Protocol PRN Reason: Restlessness Last Admin: 07/23/17 23:20 Dose: 0.5 mg Gabapentin (Neurontin) 100 mg PO TID [facility] PRN Reason: Protocol Last Admin: 07/24/17 17:48 Dose: 100 mg Heparin Sodium (Porcine) (Heparin) 5,000 units SC Q12 [facility] PRN Reason: Protocol Last Admin: 07/25/17 09:19 Dose: Not Given Hydromorphone HCl (Dilaudid) 0.5 mg IVP Q4H PRN PRN Reason: Pain, severe (8-10) Last Admin: 07/25/17 08:19 Dose: 0.5 mg Hydroxyzine Pamoate (Vistaril) 50 mg PO Q8 PRN; Protocol PRN Reason: Anxiety Sodium Chloride (Sodium Chloride 0.9%) 1,000 mls @ 100 mls/hr IV .Q10H [facility] Last Admin: 07/25/17 05:17 Dose: 100 mls/hr Lorazepam (Ativan) 1 mg IVP Q4 PRN; Protocol PRN Reason: Agitation Last Admin: 07/25/17 06:55 Dose: 1 mg Morphine Sulfate (Morphine) 2 mg IVP Q4H PRN PRN Reason: Pain, moderate (4-7) Last Admin: 07/25/17 06:56 Dose: 2 mg Nicotine (Nicoderm Cq) 1 patch TD DAILY PRN PRN Reason: URGE TO SMOKE Ondansetron HCl (Zofran Inj) 4 mg IVP Q4H PRN PRN Reason: Nausea/Vomiting Pantoprazole Sodium (Protonix Ec Tab) 40 mg PO 0600 [facility] Polyethylene Glycol (Miralax) 17 gm PO BID [facility] Last Admin: 07/25/17 09:18 Dose: 17 gm Sucralfate (Carafate Tab) 1 gm PO 0600,1600 [facility] Last Admin: 07/25/17 06:31 Dose: Not Given Venlafaxine HCl (Effexor) 56.25 mg PO BID [facility] Last Admin: 07/25/17 09:19 Dose: 56.25 mg - Labs Labs: 07/25/17 06:50 07/25/17 06:50 PT 11.7 SECONDS (9.4-12.5) 07/22/17 22:15 INR 1.03 (0.93-1.08) 07/22/17 22:15 APTT 34.8 Seconds (25.1-36.5) 07/22/17 22:15 Attending/Attestation - Attestation I have personally seen and examined this patient.: Yes I have fully participated in the care of the patient.: Yes I have reviewed all pertinent clinical information, including history, physical exam and plan: Yes Notes (Text): 07/25/17 11:42 Attending note; Patient seen and examined with resident. Patient is a 31 year old female with a past medical history of asthma, polysubstance abuse, and pancreatitis who presented with periumbilical abdominal pain. Patient was found to have elevated AST and ALT. Status post cholecystectomy. Mildly dilated CBD. GI evaluation appreciated. Patient had an endoscopic ultrasound today. EGD showed esophagitis and gastritis. EUS showed no CBD stone or sludge. Endoscopy findings explained by Dr. Javed. Continue Protonix. Started on Carafate. Chronic opiate dependency; patient is requesting pain medication. Anxiety is a big component of her symptoms. Patient refused psychiatric evaluation. Side effects of opiates explained to the patient in detail. The patient does not appear to be in significant distress. GI and surgery also recommending to avoid narcotics. Klonopin and Ativan offered. We will follow up with surgery closely for further plan.
[2017-07-24] MEDS ORDERED: HYDROmorphone 0.5 mg/0.5 ml ISec IVP STA (15:01)
[2017-07-24] MEDS: HYDROmorphone 0.5 mg/0.5 ml ISec IVP PRN (19:10)
[2017-07-25] MEDS: HYDROmorphone 0.5 mg/0.5 ml ISec IVP PRN ×7 (00:02→22:14)
[2017-07-25] MEDS: Morphine 2 mg/ml ISec IVP PRN ×3 (02:52→12:06)
[2017-07-25] MEDS: Sodium Chloride 0.9% 1,000 ML IV SCH (05:17)
[2017-07-25 07:39] LABS: HEMOGLOBIN 11.8 g/dL (12.0-16.0); MEAN CELL VOLUME 81.9 fl (80.0-105.0); MEAN PLATELET VOLUME 10.8 fl (7.0-11.0); RBC 4.37 10^6/uL (3.5-6.1); RED CELL DISTRIBUTION WIDTH 14.9 % (11.5-14.5); WHITE BLOOD COUNT 7.6 10^3/ul (4.5-11.0)
--- NOTE | 2017-07-25 07:47 | CP.PCM.PN ---
Subjective - Date & Time of Evaluation Date of Evaluation: 07/25/17 Time of Evaluation: 07:40 - Subjective Subjective: Surgery: Dr. Meraz Patient complains of pain and requesting dilaudid. She denies n/v/f/c. Tolerating diet. Objective - Vital Signs/Intake and Output Vital Signs (last 24 hours): Temp Pulse Resp BP Pulse Ox 98.5 F 62 18 100/62 96 07/24/17 14:00 07/24/17 14:00 07/24/17 14:00 07/24/17 14:00 07/24/17 14:00 Intake and Output: 07/25/17 07/25/17 06:59 18:59 Intake Total 3360 Balance 3360 - Medications Medications: Current Medications Albuterol/Ipratropium (Duoneb 3 Mg/0.5 Mg (3 Ml) Ud) 3 ml IH [id number] PRN PRN Reason: Shortness of Breath Clonazepam (Klonopin) 0.5 mg PO TID PRN; Protocol PRN Reason: Restlessness Last Admin: 07/23/17 23:20 Dose: 0.5 mg Cyclobenzaprine HCl (Flexeril) 10 mg PO TID PRN PRN Reason: Muscle spasm Last Admin: 07/23/17 08:15 Dose: 10 mg Gabapentin (Neurontin) 100 mg PO TID [facility] PRN Reason: Protocol Last Admin: 07/24/17 17:48 Dose: 100 mg Heparin Sodium (Porcine) (Heparin) 5,000 units SC Q12 [facility] PRN Reason: Protocol Last Admin: 07/25/17 04:41 Dose: Not Given Hydromorphone HCl (Dilaudid) 0.5 mg IVP Q4H PRN PRN Reason: Pain, severe (8-10) Last Admin: 07/25/17 04:13 Dose: 0.5 mg Hydroxyzine Pamoate (Vistaril) 50 mg PO Q8 PRN; Protocol PRN Reason: Anxiety Sodium Chloride (Sodium Chloride 0.9%) 1,000 mls @ 100 mls/hr IV .Q10H [facility] Last Admin: 07/25/17 05:17 Dose: 100 mls/hr Lorazepam (Ativan) 1 mg IVP Q4 PRN; Protocol PRN Reason: Agitation Last Admin: 07/25/17 06:55 Dose: 1 mg Morphine Sulfate (Morphine) 2 mg IVP Q4H PRN PRN Reason: Pain, moderate (4-7) Last Admin: 07/25/17 06:56 Dose: 2 mg Nicotine (Nicoderm Cq) 1 patch TD DAILY PRN PRN Reason: URGE TO SMOKE Ondansetron HCl (Zofran Inj) 4 mg IVP Q4H PRN PRN Reason: Nausea/Vomiting Pantoprazole Sodium (Protonix Ec Tab) 40 mg PO 0600 [facility] Polyethylene Glycol (Miralax) 17 gm PO BID [facility] Last Admin: 07/24/17 17:48 Dose: Not Given Sucralfate (Carafate Tab) 1 gm PO 0600,1600 [facility] Last Admin: 07/25/17 06:31 Dose: Not Given Venlafaxine HCl (Effexor) 56.25 mg PO BID [facility] Last Admin: 07/24/17 17:48 Dose: 56.25 mg - Labs Labs: PT 11.7 SECONDS (9.4-12.5) 07/22/17 22:15 INR 1.03 (0.93-1.08) 07/22/17 22:15 APTT 34.8 Seconds (25.1-36.5) 07/22/17 22:15 - Constitutional Appears: Non-toxic, No Acute Distress - Head Exam Head Exam: ATRAUMATIC, NORMOCEPHALIC - Eye Exam Eye Exam: EOMI, Normal appearance - ENT Exam ENT Exam: Mucous Membranes Moist - Respiratory Exam Respiratory Exam: NORMAL BREATHING PATTERN. absent: Respiratory Distress - Cardiovascular Exam Cardiovascular Exam: REGULAR RHYTHM. absent: Tachycardia - GI/Abdominal Exam GI & Abdominal Exam: Soft. absent: Distended, Guarding, Tenderness, Rebound - Extremities Exam Extremities Exam: Normal Inspection. absent: Calf Tenderness - Neurological Exam Neurological Exam: Alert, Awake - Psychiatric Exam Psychiatric exam: Flat Affect - Skin Skin Exam: Dry, Warm Assessment and Plan - Assessment and Plan (Free Text) Assessment: 31F with abdominal pain, chronic Plan: -avoid narcotics -plan for OR on for dx laparoscopy possible hernia repair -daily labs -reg diet -OOB -IS use -further recs per Dr. Mariya Bourgeois PGY3
[2017-07-25 07:59] LABS: ALB/GLOB RATIO 1.4 (1.1-1.8); ALT/SGPT 79 U/L (7-56); AST/SGOT 40 U/L (14-36); BLOOD UREA NITROGEN 3 mg/dL (7-21); CALCIUM 9.4 mg/dL (8.4-10.5); GFR AFRICAN-AMERICAN > 60; GFR NON-AFRICAN AMERICAN > 60
[2017-07-25] MEDS: POLYETHYLENE GLYCOL 3350 17 GM/Dose PACKET PO SCH ×2 (09:18→18:24)
--- NOTE | 2017-07-25 10:49 | CP.PCM.PN ---
<Sergio,Daniella - Last Filed: 07/25/17 11:29> Subjective - Date & Time of Evaluation Date of Evaluation: 07/25/17 Time of Evaluation: 07:00 - Subjective Subjective: GI Fellow PGY4 Progress Note Pt seen and evaluated at bedside, pt doing well with +BM. Tolerating diet but still having pain. ROS: A 12pt ROS was neg except as above. Objective - Vital Signs/Intake and Output Vital Signs (last 24 hours): Temp Pulse Resp BP Pulse Ox 97.9 F 72 20 120/81 98 07/25/17 08:31 07/25/17 08:31 07/25/17 08:31 07/25/17 08:31 07/25/17 08:31 Intake and Output: 07/25/17 07/25/17 06:59 18:59 Intake Total 3360 Balance 3360 - Medications Medications: Current Medications Albuterol/Ipratropium (Duoneb 3 Mg/0.5 Mg (3 Ml) Ud) 3 ml IH [id number] PRN PRN Reason: Shortness of Breath Clonazepam (Klonopin) 0.5 mg PO TID PRN; Protocol PRN Reason: Restlessness Last Admin: 07/23/17 23:20 Dose: 0.5 mg Gabapentin (Neurontin) 100 mg PO TID [facility] PRN Reason: Protocol Last Admin: 07/24/17 17:48 Dose: 100 mg Heparin Sodium (Porcine) (Heparin) 5,000 units SC Q12 [facility] PRN Reason: Protocol Last Admin: 07/25/17 09:19 Dose: Not Given Hydromorphone HCl (Dilaudid) 0.5 mg IVP Q4H PRN PRN Reason: Pain, severe (8-10) Last Admin: 07/25/17 08:19 Dose: 0.5 mg Hydroxyzine Pamoate (Vistaril) 50 mg PO Q8 PRN; Protocol PRN Reason: Anxiety Sodium Chloride (Sodium Chloride 0.9%) 1,000 mls @ 100 mls/hr IV .Q10H [facility] Last Admin: 07/25/17 05:17 Dose: 100 mls/hr Lorazepam (Ativan) 1 mg IVP Q4 PRN; Protocol PRN Reason: Agitation Last Admin: 07/25/17 06:55 Dose: 1 mg Morphine Sulfate (Morphine) 2 mg IVP Q4H PRN PRN Reason: Pain, moderate (4-7) Last Admin: 07/25/17 06:56 Dose: 2 mg Nicotine (Nicoderm Cq) 1 patch TD DAILY PRN PRN Reason: URGE TO SMOKE Ondansetron HCl (Zofran Inj) 4 mg IVP Q4H PRN PRN Reason: Nausea/Vomiting Pantoprazole Sodium (Protonix Ec Tab) 40 mg PO 0600 [facility] Polyethylene Glycol (Miralax) 17 gm PO BID [facility] Last Admin: 07/25/17 09:18 Dose: 17 gm Sucralfate (Carafate Tab) 1 gm PO 0600,1600 [facility] Last Admin: 07/25/17 06:31 Dose: Not Given Venlafaxine HCl (Effexor) 56.25 mg PO BID [facility] Last Admin: 07/25/17 09:19 Dose: 56.25 mg - Labs Labs: 07/25/17 06:50 07/25/17 06:50 PT 11.7 SECONDS (9.4-12.5) 07/22/17 22:15 INR 1.03 (0.93-1.08) 07/22/17 22:15 APTT 34.8 Seconds (25.1-36.5) 07/22/17 22:15 - Constitutional Appears: Non-toxic, No Acute Distress - Head Exam Head Exam: ATRAUMATIC, NORMAL INSPECTION, NORMOCEPHALIC - Eye Exam Eye Exam: EOMI, Normal appearance, PERRL Pupil Exam: NORMAL ACCOMODATION, PERRL - ENT Exam ENT Exam: Mucous Membranes Moist, Normal Exam - Neck Exam Neck Exam: Full ROM, Normal Inspection - Respiratory Exam Respiratory Exam: Clear to Ausculation Bilateral, NORMAL BREATHING PATTERN - Cardiovascular Exam Cardiovascular Exam: REGULAR RHYTHM, RRR - GI/Abdominal Exam GI & Abdominal Exam: Normal Bowel Sounds - Extremities Exam Extremities Exam: Full ROM, Normal Inspection - Back Exam Back Exam: NORMAL INSPECTION - Neurological Exam Neurological Exam: Alert, Awake, Oriented x3 - Skin Skin Exam: Dry, Intact, Normal Color, Warm Assessment and Plan - Assessment and Plan (Free Text) Assessment: Assessment: This is a 31yF with pmhx of alcoholic pancreatitis presenting with periumbilical pain. 1. Abdominal pain 2. Elevated LFTs 3. Dilated CBD with no stone 4. Fatty Liver 5. Constipation 6. Hx of alcohol and polysubstance abuse 7. Hx of alcoholic pancreatitis Plan: -Continue supportive care -Avoid narcotics with chronic constipation and dilated bile duct -Pt with small umbilical hernia -Constipation recommend bowel regimen with miralax bid -Diet as tolerated -Pt with elevated LFTs trending down from last admission, hepatocellular pattern , not a cholestatic, likely from fatty liver/NAFLD as seen on imaging with significant weight gain over 1yr as documented -EUS with dilated CBD that tapers but without stone, no chronic pancreatitis, likely dilated post cholecystectomy and opioids -Hepatitis panel and autoimmune serologies negative -Will sign off <Jennifer Lynne - Last Filed: 07/25/17 11:40> Objective - Vital Signs/Intake and Output Vital Signs (last 24 hours): Temp Pulse Resp BP Pulse Ox 97.9 F 72 20 120/81 98 07/25/17 08:31 07/25/17 08:31 07/25/17 08:31 07/25/17 08:31 07/25/17 08:31 Intake and Output: 07/25/17 07/25/17 06:59 18:59 Intake Total 3360 Balance 3360 - Medications Medications: Current Medications Albuterol/Ipratropium (Duoneb 3 Mg/0.5 Mg (3 Ml) Ud) 3 ml IH [id number] PRN PRN Reason: Shortness of Breath Clonazepam (Klonopin) 0.5 mg PO TID PRN; Protocol PRN Reason: Restlessness Last Admin: 07/23/17 23:20 Dose: 0.5 mg Gabapentin (Neurontin) 100 mg PO TID [facility] PRN Reason: Protocol Last Admin: 07/24/17 17:48 Dose: 100 mg Heparin Sodium (Porcine) (Heparin) 5,000 units SC Q12 [facility] PRN Reason: Protocol Last Admin: 07/25/17 09:19 Dose: Not Given Hydromorphone HCl (Dilaudid) 0.5 mg IVP Q4H PRN PRN Reason: Pain, severe (8-10) Last Admin: 07/25/17 08:19 Dose: 0.5 mg Hydroxyzine Pamoate (Vistaril) 50 mg PO Q8 PRN; Protocol PRN Reason: Anxiety Sodium Chloride (Sodium Chloride 0.9%) 1,000 mls @ 100 mls/hr IV .Q10H [facility] Last Admin: 07/25/17 05:17 Dose: 100 mls/hr Lorazepam (Ativan) 1 mg IVP Q4 PRN; Protocol PRN Reason: Agitation Last Admin: 07/25/17 06:55 Dose: 1 mg Morphine Sulfate (Morphine) 2 mg IVP Q4H PRN PRN Reason: Pain, moderate (4-7) Last Admin: 07/25/17 06:56 Dose: 2 mg Nicotine (Nicoderm Cq) 1 patch TD DAILY PRN PRN Reason: URGE TO SMOKE Ondansetron HCl (Zofran Inj) 4 mg IVP Q4H PRN PRN Reason: Nausea/Vomiting Pantoprazole Sodium (Protonix Ec Tab) 40 mg PO 0600 [facility] Polyethylene Glycol (Miralax) 17 gm PO BID [facility] Last Admin: 07/25/17 09:18 Dose: 17 gm Sucralfate (Carafate Tab) 1 gm PO 0600,1600 [facility] Last Admin: 07/25/17 06:31 Dose: Not Given Venlafaxine HCl (Effexor) 56.25 mg PO BID [facility] Last Admin: 07/25/17 09:19 Dose: 56.25 mg - Labs Labs: 07/25/17 06:50 07/25/17 06:50 PT 11.7 SECONDS (9.4-12.5) 07/22/17 22:15 INR 1.03 (0.93-1.08) 07/22/17 22:15 APTT 34.8 Seconds (25.1-36.5) 07/22/17 22:15 Attending/Attestation - Attestation I have personally seen and examined this patient.: Yes I have fully participated in the care of the patient.: Yes I have reviewed all pertinent clinical information, including history, physical exam and plan: Yes Notes (Text): 07/25/17 11:38 I have seen and examined patient with GI fellow. This is a 31 year old female with history of polysubstance abuse, pancreatitis who presents to hospital with complaint of abdominal pain found to have transaminitis and dilated CBD s/p EUS yesterday with no mass or stones. Dilated CBD likely opioid induced. Patient is scheduled for surgery tomorrow for hernia repair. Continue laxatives. Diet as tolerated. PPO po daily. Pain management as per primary team. No further GI intervention required. Thank you for letting us participate in the care of your patient
--- NOTE | 2017-07-25 11:24 | CP.PCM.PN ---
<Zohaib Lind - Last Filed: 07/25/17 11:16> Subjective - Date & Time of Evaluation Date of Evaluation: 07/25/17 Time of Evaluation: 11:16 - Subjective Subjective: Medicine Progress Note: Patient seen and assessed at bedside. No acute events overnight per nursing staff or patient. However, she does continue to endorse abdominal pain despite dilaudid and morphine therapy. She denies fevers, chills, headache, chest pain, palpitations, SOB, cough, N/V/D/C, pain with urination, skin changes or any numbness/tingling/weakness of any extremity. Objective - Vital Signs/Intake and Output Vital Signs (last 24 hours): Temp Pulse Resp BP Pulse Ox 97.9 F 72 20 120/81 98 07/25/17 08:31 07/25/17 08:31 07/25/17 08:31 07/25/17 08:31 07/25/17 08:31 Intake and Output: 07/25/17 07/25/17 06:59 18:59 Intake Total 3360 Balance 3360 - Medications Medications: Current Medications Albuterol/Ipratropium (Duoneb 3 Mg/0.5 Mg (3 Ml) Ud) 3 ml IH [id number] PRN PRN Reason: Shortness of Breath Clonazepam (Klonopin) 0.5 mg PO TID PRN; Protocol PRN Reason: Restlessness Last Admin: 07/23/17 23:20 Dose: 0.5 mg Gabapentin (Neurontin) 100 mg PO TID [facility]BI PRN Reason: Protocol Last Admin: 07/24/17 17:48 Dose: 100 mg Heparin Sodium (Porcine) (Heparin) 5,000 units SC Q12 [facility] PRN Reason: Protocol Last Admin: 07/25/17 09:19 Dose: Not Given Hydromorphone HCl (Dilaudid) 0.5 mg IVP Q4H PRN PRN Reason: Pain, severe (8-10) Last Admin: 07/25/17 08:19 Dose: 0.5 mg Hydroxyzine Pamoate (Vistaril) 50 mg PO Q8 PRN; Protocol PRN Reason: Anxiety Sodium Chloride (Sodium Chloride 0.9%) 1,000 mls @ 100 mls/hr IV .Q10H [facility] Last Admin: 07/25/17 05:17 Dose: 100 mls/hr Lorazepam (Ativan) 1 mg IVP Q4 PRN; Protocol PRN Reason: Agitation Last Admin: 07/25/17 06:55 Dose: 1 mg Morphine Sulfate (Morphine) 2 mg IVP Q4H PRN PRN Reason: Pain, moderate (4-7) Last Admin: 07/25/17 06:56 Dose: 2 mg Nicotine (Nicoderm Cq) 1 patch TD DAILY PRN PRN Reason: URGE TO SMOKE Ondansetron HCl (Zofran Inj) 4 mg IVP Q4H PRN PRN Reason: Nausea/Vomiting Pantoprazole Sodium (Protonix Ec Tab) 40 mg PO 0600 [facility] Polyethylene Glycol (Miralax) 17 gm PO BID [facility] Last Admin: 07/25/17 09:18 Dose: 17 gm Sucralfate (Carafate Tab) 1 gm PO 0600,1600 [facility] Last Admin: 07/25/17 06:31 Dose: Not Given Venlafaxine HCl (Effexor) 56.25 mg PO BID [facility] Last Admin: 07/25/17 09:19 Dose: 56.25 mg - Labs Labs: 07/25/17 06:50 07/25/17 06:50 PT 11.7 SECONDS (9.4-12.5) 07/22/17 22:15 INR 1.03 (0.93-1.08) 07/22/17 22:15 APTT 34.8 Seconds (25.1-36.5) 07/22/17 22:15 - Constitutional Appears: Non-toxic, No Acute Distress - Head Exam Head Exam: ATRAUMATIC, NORMOCEPHALIC - Eye Exam Eye Exam: EOMI, Normal appearance Pupil Exam: NORMAL ACCOMODATION, PERRL - ENT Exam ENT Exam: Mucous Membranes Moist, Normal Exam - Neck Exam Neck Exam: Full ROM, Normal Inspection. absent: Lymphadenopathy - Respiratory Exam Respiratory Exam: Clear to Ausculation Bilateral, NORMAL BREATHING PATTERN. absent: Accessory Muscle Use, Chest Wall Tenderness, Decreased Breath Sounds, Prolonged Expiratory Phase, Rales, Rhonchi, Wheezes, Respiratory Distress, Stridor - Cardiovascular Exam Cardiovascular Exam: REGULAR RHYTHM, RRR, +S1, +S2. absent: Bradycardia, Tachycardia, Clicks, Diastolic murmur, Gallop, Irregular Rhythm, JVD, Rubs, +S4 , Murmur - GI/Abdominal Exam GI & Abdominal Exam: Soft, Tenderness (Diffusely TTP), Hernia (Umbilical, reducible), Normal Bowel Sounds. absent: Bruit, Distended, Firm, Guarding, Rigid, Diminished Bowel Sounds, Hyperactive Bowel Sounds, Hypoactive Bowel Sounds, Mass, Organomegaly, Pulsatile Mass - Extremities Exam Extremities Exam: Full ROM, Normal Capillary Refill, Normal Inspection. absent : Calf Tenderness, Joint Swelling, Pedal Edema, Tenderness - Back Exam Back Exam: NORMAL INSPECTION - Neurological Exam Neurological Exam: Alert, Awake, CN II-XII Intact, Normal Gait, Oriented x3. absent: Abnormal Gait, Altered, Motor Sensory Deficit, Reflexes Normal - Psychiatric Exam Psychiatric exam: Normal Affect, Normal Mood - Skin Skin Exam: Dry, Intact, Normal Color, Warm Assessment and Plan - Assessment and Plan (Free Text) Assessment: 31 year old female with a past medical history of asthma, polysubstance abuse, and pancreatitis who presented with periumbilical abdominal pain. Patient was found to have elevated AST and ALT, which are downtrending from her previous admission. Patient had EUS done for evaluation of dilated CBD found on MRCP, which showed no further biliary or pancreatic abnormalities appreciated. She is scheduled for diagnostic laparoscopy with possible hernia repair on 07/26/17. Plan: 1. Abdominal Pain -EUS revealed a CBD dilated to 8mm with no anatomical abnormalities of the pancreas, esophagitis and gastritis -CT Abdomen/Pelvis showed mild wall thickening of the descending colon with mild colitis no excluded and stable extrahepatic bile duct dilation to 12mm s/p cholecystectomy -Continue Miralax for constipation -Continue Protonix 40mg IVP Q12 and and Carafate 1mg PO BID -Continue Dilaudid 0.5mg IVP Q4H PRN, Morphine 2mg IVP Q4H PRN, Neurontin, Toradol and Flexeril for pain control -Continue Zofran PRN for N/V -Continue Normal Saline 100mls/hr -Clear liquid diet -Tentatively scheduled for diagnostic laparoscopy hernia repair on 07/26 -Surgery and GI consulted, all recommendations appreciated 2. Transaminitis -Hepatitis panel and autoimmune workup negative -Downtrending -Continue to monitor with daily 3. History of Asthma -Continue Albuterol nebs PRN 4. History of Anxiety/Depression -Continue home Effexor, Klonopin and Vistaril -Continue Ativan 1mg IV PRN for anxiety 5. History of Tobacco Abuse -Continue Nicoderm CQ TD daily -Smoking cessation advised 6. History of Polysubstance Abuse -UDS positive only for opiates (taken after morphine administration) -Provided recommendations for cessation of all illicit drugs GI Prophylaxis: Protonix DVT Prophylaxis: Heparin and SCD's Patient seen and case discussed with attending, Dr. Navarro. <Bin Navarro - Last Filed: 07/25/17 11:49> Objective - Vital Signs/Intake and Output Vital Signs (last 24 hours): Temp Pulse Resp BP Pulse Ox 97.9 F 72 20 120/81 98 07/25/17 08:31 07/25/17 08:31 07/25/17 08:31 07/25/17 08:31 07/25/17 08:31 Intake and Output: 07/25/17 07/25/17 06:59 18:59 Intake Total 3360 Balance 3360 - Medications Medications: Current Medications Albuterol/Ipratropium (Duoneb 3 Mg/0.5 Mg (3 Ml) Ud) 3 ml IH [id number] PRN PRN Reason: Shortness of Breath Clonazepam (Klonopin) 0.5 mg PO TID PRN; Protocol PRN Reason: Restlessness Last Admin: 07/23/17 23:20 Dose: 0.5 mg Gabapentin (Neurontin) 100 mg PO TID [facility] PRN Reason: Protocol Last Admin: 07/24/17 17:48 Dose: 100 mg Heparin Sodium (Porcine) (Heparin) 5,000 units SC Q12 [facility] PRN Reason: Protocol Last Admin: 07/25/17 09:19 Dose: Not Given Hydromorphone HCl (Dilaudid) 0.5 mg IVP Q4H PRN PRN Reason: Pain, severe (8-10) Last Admin: 07/25/17 08:19 Dose: 0.5 mg Hydroxyzine Pamoate (Vistaril) 50 mg PO Q8 PRN; Protocol PRN Reason: Anxiety Sodium Chloride (Sodium Chloride 0.9%) 1,000 mls @ 100 mls/hr IV .Q10H [facility] Last Admin: 07/25/17 05:17 Dose: 100 mls/hr Lorazepam (Ativan) 1 mg IVP Q4 PRN; Protocol PRN Reason: Agitation Last Admin: 07/25/17 06:55 Dose: 1 mg Morphine Sulfate (Morphine) 2 mg IVP Q4H PRN PRN Reason: Pain, moderate (4-7) Last Admin: 07/25/17 06:56 Dose: 2 mg Nicotine (Nicoderm Cq) 1 patch TD DAILY PRN PRN Reason: URGE TO SMOKE Ondansetron HCl (Zofran Inj) 4 mg IVP Q4H PRN PRN Reason: Nausea/Vomiting Pantoprazole Sodium (Protonix Ec Tab) 40 mg PO 0600 [facility] Polyethylene Glycol (Miralax) 17 gm PO BID [facility] Last Admin: 07/25/17 09:18 Dose: 17 gm Sucralfate (Carafate Tab) 1 gm PO 0600,1600 [facility] Last Admin: 07/25/17 06:31 Dose: Not Given Venlafaxine HCl (Effexor) 56.25 mg PO BID [facility] Last Admin: 07/25/17 09:19 Dose: 56.25 mg - Labs Labs: 07/25/17 06:50 07/25/17 06:50 PT 11.7 SECONDS (9.4-12.5) 07/22/17 22:15 INR 1.03 (0.93-1.08) 07/22/17 22:15 APTT 34.8 Seconds (25.1-36.5) 07/22/17 22:15 Attending/Attestation - Attestation I have personally seen and examined this patient.: Yes I have fully participated in the care of the patient.: Yes I have reviewed all pertinent clinical information, including history, physical exam and plan: Yes Notes (Text): 07/25/17 11:48 Attending note; Patient seen and examined with resident. Denies any nausea, vomiting. Tolerating diet well. Continues to ask for more pain medication despite giving Dilaudid 0.5 mg prn. Patient is a 31 year old female with a past medical history of asthma, polysubstance abuse, and pancreatitis who presented with periumbilical abdominal pain. Patient was found to have elevated AST and ALT. Status post cholecystectomy. Mildly dilated CBD. GI evaluation appreciated. Patient had an endoscopic ultrasound yesterday. EGD showed esophagitis and gastritis. EUS showed no CBD stone or sludge. Endoscopy findings explained by Dr. Javed. Continue Protonix. Started on Carafate. Chronic opiate dependency; patient is requesting pain medication. Anxiety is a big component of her symptoms. Patient refused psychiatric evaluation. Side effects of opiates explained to the patient in detail. The patient does not appear to be in significant distress. GI and surgery also recommending to avoid narcotics. Klonopin and Ativan offered. Plan for diagnostic laparoscopy and hernia repair tomorrow. We'll follow up with surgery closely.
--- NOTE | 2017-07-25 21:25 | CP.PCM.PN ---
Subjective - Date & Time of Evaluation Date of Evaluation: 07/25/17 Time of Evaluation: 21:24 - Subjective Subjective: S:It was requested to insert a heparin lock. Patient has no complaints at this time. Pertinent medical record was reviewed. O: Last Vital Signs 3 Temp 98.8 F 07/25/17 14:59 Pulse 76 07/25/17 14:59 Resp 20 07/25/17 14:59 BP 137/97 H 07/25/17 14:59 Pulse Ox 99 07/25/17 14:59 Awake, alert, overweight, not in distress. LUNGS:Normal breathing pattern. A:Poor venous access. P:# 22 angiocath was inserted in right forearm, distal volar aspect. Objective - Vital Signs/Intake and Output Vital Signs (last 24 hours): Temp Pulse Resp BP Pulse Ox 98.8 F 76 20 137/97 H 99 07/25/17 14:59 07/25/17 14:59 07/25/17 14:59 07/25/17 14:59 07/25/17 14:59 Intake and Output: 07/25/17 07/26/17 18:59 06:59 Intake Total 1380 Balance 1380 - Medications Medications: Current Medications Albuterol/Ipratropium (Duoneb 3 Mg/0.5 Mg (3 Ml) Ud) 3 ml IH [id number] PRN PRN Reason: Shortness of Breath Clonazepam (Klonopin) 0.5 mg PO TID PRN; Protocol PRN Reason: Restlessness Last Admin: 07/25/17 15:41 Dose: 0.5 mg Gabapentin (Neurontin) 100 mg PO TID [facility] PRN Reason: Protocol Last Admin: 07/25/17 18:24 Dose: 100 mg Heparin Sodium (Porcine) (Heparin) 5,000 units SC Q12 [facility] PRN Reason: Protocol Last Admin: 07/25/17 09:19 Dose: Not Given Hydromorphone HCl (Dilaudid) 1 mg IVP Q4H PRN PRN Reason: Pain, severe (8-10) Last Admin: 07/25/17 18:22 Dose: 1 mg Hydroxyzine Pamoate (Vistaril) 50 mg PO Q8 PRN; Protocol PRN Reason: Anxiety Last Admin: 07/25/17 15:40 Dose: 50 mg Sodium Chloride (Sodium Chloride 0.9%) 1,000 mls @ 100 mls/hr IV .Q10H [facility] Last Admin: 07/25/17 05:17 Dose: 100 mls/hr Lorazepam (Ativan) 1 mg IVP Q4 PRN; Protocol PRN Reason: Agitation Last Admin: 07/25/17 15:40 Dose: 1 mg Nicotine (Nicoderm Cq) 1 patch TD DAILY PRN PRN Reason: URGE TO SMOKE Ondansetron HCl (Zofran Inj) 4 mg IVP Q4H PRN PRN Reason: Nausea/Vomiting Pantoprazole Sodium (Protonix Ec Tab) 40 mg PO 0600 [facility] Polyethylene Glycol (Miralax) 17 gm PO BID [facility] Last Admin: 07/25/17 18:24 Dose: 17 gm Sucralfate (Carafate Tab) 1 gm PO 0600,1600 [facility] Last Admin: 07/25/17 15:41 Dose: 1 gm Venlafaxine HCl (Effexor) 56.25 mg PO BID [facility] Last Admin: 07/25/17 18:23 Dose: 56.25 mg - Labs Labs: 07/25/17 06:50 07/25/17 06:50 PT 11.7 SECONDS (9.4-12.5) 07/22/17 22:15 INR 1.03 (0.93-1.08) 07/22/17 22:15 APTT 34.8 Seconds (25.1-36.5) 07/22/17 22:15
[2017-07-26] MEDS ORDERED: Pantoprazole 40 mg EC Tab PO SCH (06:00)
[2017-07-26] MEDS: HYDROmorphone 0.5 mg/0.5 ml ISec IVP PRN ×2 (06:14→11:23)
[2017-07-26 07:20] LABS: BASO # 0.04 K/mm3 (0.0-2.0); BASO % 0.5 % (0.0-3.0); EOS # 0.3 (0.0-0.7); EOS % 4.2 % (1.5-5.0); GRAN # 4.18 (1.4-6.5); GRAN % 52.2 % (50.0-68.0); HEMOGLOBIN 12.5 g/dL (12.0-16.0); LYMPH # 2.9 (1.2-3.4); MEAN CELL VOLUME 81.3 fl (80.0-105.0); MEAN CORPUSCULAR HEMOGLOBIN 28.1 pg (25.0-35.0); MEAN CORPUSCULAR HGB CONC 34.5 g/dl (31.0-37.0); MEAN PLATELET VOLUME 10.3 fl (7.0-11.0); MONO # 0.6 (0.1-0.6); MONO % 7.1 % (1.0-6.0); RBC 4.45 10^6/uL (3.5-6.1); RED CELL DISTRIBUTION WIDTH 14.8 % (11.5-14.5)
[2017-07-26] MEDS ORDERED: Bupivacaine 0.5% Inj(30mL) ONE (07:37)
[2017-07-26 07:52] LABS: ALB/GLOB RATIO 1.4 (1.1-1.8); ALBUMIN 4.1 g/dL (3.0-4.8); ALT/SGPT 76 U/L (7-56); AST/SGOT 37 U/L (14-36); BLOOD UREA NITROGEN 3 mg/dL (7-21); GFR AFRICAN-AMERICAN > 60; GFR NON-AFRICAN AMERICAN > 60
[2017-07-26] MEDS ORDERED: Midazolam 2 MG/2 ML VIAL ONE (07:55)
[2017-07-26 07:59] VITALS: TEMP 99
[2017-07-26] MEDS ORDERED: Propofol 10 mg/ml Inj (20 ML) ONE (07:59)
[2017-07-26] MEDS ORDERED: Rocuronium 10 mg/ml (5 ml) ONE (08:23)
[2017-07-26] MEDS ORDERED: HYDROmorphone 0.5 mg/0.5 ml ISec IVP PRN (08:31)
[2017-07-26] MEDS ORDERED: Lactated Ringer's 1,000 ML IV SCH (08:45)
[2017-07-26] MEDS ORDERED: Glycopyrrolate 0.2 mg/ml (2ml vial) ONE (09:04)
[2017-07-26] MEDS ORDERED: Neostigmine Methylsulfate 3mg/3ml Syringe IV ONE (09:04)
[2017-07-26] MEDS ORDERED: HYDROmorphone 0.5 mg/0.5 ml ISec ONE ×3 (09:35→10:26)
--- NOTE | 2017-07-26 09:37 | PCM.SURG1 ---
Surgeon's Initial Post Op Note - Surgeon's Notes Surgeon: Dr. Meraz Manager Investment: Dr. Starr Type of Anesthesia: General Endo, Local Pre-Operative Diagnosis: Ventral Incisional Hernia Operative Findings: Ventral Incisional Hernia Post-Operative Diagnosis: Ventral Incisional Hernia Operation Performed: Ventral Incisional Hernia Repair with Mesh Placement Specimen/Specimens Removed: n/a Estimated Blood Loss: EBL {In ML}: 5 Blood Products Given: N/A Drains Used: No Drains Post-Op Condition: Good Date of Surgery/Procedure: 07/26/17 Time of Surgery/Procedure: 09:36
[2017-07-26 10:35] VITALS: PULSE 83; RESP 15; O2SAT 99
[2017-07-26] MEDS: POLYETHYLENE GLYCOL 3350 17 GM/Dose PACKET PO SCH ×2 (11:08→13:31)
[2017-07-26 11:45] VITALS: BP 118/80
[2017-07-26] MEDS ORDERED: Potassium Chloride 20 mEq ER Tab PO ONE (11:45)
[2017-07-26] MEDS ORDERED: HYDROmorphone 0.5 mg/0.5 ml ISec IVP STA (12:37)
--- NOTE | 2017-07-26 21:19 | OP ---
PROCEDURE DATE: 07/26/2017 PREOPERATIVE DIAGNOSIS: Ventral hernia. POSTOPERATIVE DIAGNOSIS: Incarcerated incisional hernia. PROCEDURE PERFORMED: Laparoscopic repair of the incarcerated incisional hernia with mesh. SURGEON: Lebron Meraz MD. SENIOR SPECIALIST: Dr. Starr. ANESTHESIA ADMINISTERED BY: Dr. Menon. TYPE OF ANESTHESIA: General endotracheal anesthesia. ESTIMATED BLOOD LOSS: Minimal. SPECIMEN: None. INDICATION: Patient is a 31-year-old female with history of previous laparoscopic cholecystectomy who came into the hospital with severe pain on the abdominal wall. Patient had a CT scan, which was noncontributory; however, on physical exam, there was clear evidence of herniation to the right and above the umbilicus. Patient had a previous laparoscopic placement of the port and therefore, the suspicion was that this was the cause of her herniation. DESCRIPTION OF PROCEDURE: The patient was brought to the operating room, placed on the operating table in a supine position. The patient was connected to EKG, blood pressure, and pulse oximetry monitors. The patient then underwent general endotracheal anesthesia and was prepped and draped in the usual sterile fashion. First using lidocaine with Marcaine, the area of the left subcostal margin was infiltrated in the midclavicular line and an incision was made using #11 blade. Under direct vision with the scope through the Visiport, the access to the abdominal cavity was obtained and carefully, the pneumoperitoneum was obtained. Once this was done, careful evaluation of the abdominal cavity revealed presence of a loose and quite voluminous falciform with fat, which was suspected to be the cause of herniation. The umbilicus appeared not to have any hernia. Once the peritoneal wall of the falciform ligament was incised with cautery, we then carefully peeled it off the anterior abdominal wall and herniation was noted in the fascia just 2 cm above the umbilicus. This was carefully cleared up and the incarcerated fat was carefully teased out from the hernia. Once completely removed, it was still attached to the falciform ligament and falciform ligament was taken down back for about 5 cm to 6 cm. Prior to that dissection, a second 5-mm port was inserted in the mid-axillary line in the left lower side of the abdominal cavity, that was the port in that the dissector was used in order to detach falciform ligament. Now, the 9 cm mesh with anti-adhesive coating was placed in to the abdominal cavity with attached 3-0 Vicryl stitch. The closure needle was used to drain the mesh against defect, which was about a centimeter and a half. Once this was done, I then proceeded with attaching the mesh with non-coated side to the abdominal wall using dissolvable tackers. The tackers were placed in two rows, one at the periphery of the mesh and one slightly closer to the middle. There was excellent detachment noted. There was no bleeding noted. The abdominal cavity was carefully evaluated. The liver and visible portion of the stomach and bowel appeared to be normal. There were no other abnormalities noted. We then carefully released the pneumoperitoneum. I removed all the trocars. The trocars were closed using 0 Vicryl for the fascia, 3-0 Vicryl for subcutaneous tissue and 4-0 Monocryl for skin. A sterile Dermabond dressing was applied to all the wounds. The patient was then carefully awakened, extubated and transferred to the recovery room for further observation. Lebron Meraz MD
--- NOTE | 2017-07-27 06:27 | CP.PCM.DIS ---
Provider - Provider Date of Admission: 07/24/17 14:42 Attending physician: Bin Navarro MD Primary care physician: Kennedi Jean MD Consults: GI: Tello Surgery: Mariya Time Spent in preparation of Discharge (in minutes): 47 Diagnosis - Discharge Diagnosis (1) Hernia of anterior abdominal wall Status: Acute (2) Intractable abdominal pain Status: Acute (3) Transaminitis Status: Acute Hospital Course - Lab Results Lab Results: Most Recent Lab Values WBC 8.0 10^3/ul (4.5-11.0) 07/26/17 06:30 RBC 4.45 10^6/uL (3.5-6.1) 07/26/17 06:30 Hgb 12.5 g/dL (12.0-16.0) 07/26/17 06:30 Hct 36.2 % (36.0-48.0) 07/26/17 06:30 MCV 81.3 fl (80.0-105.0) 07/26/17 06:30 MCH 28.1 pg (25.0-35.0) 07/26/17 06:30 MCHC 34.5 g/dl (31.0-37.0) 07/26/17 06:30 RDW 14.8 % (11.5-14.5) H 07/26/17 06:30 Plt Count 240 10^3/uL (120.0-450.0) 07/26/17 06:30 MPV 10.3 fl (7.0-11.0) 07/26/17 06:30 Gran % 52.2 % (50.0-68.0) 07/26/17 06:30 Lymph % (Auto) 36.0 % (22.0-35.0) H 07/26/17 06:30 Gregory % (Auto) 7.1 % (1.0-6.0) H 07/26/17 06:30 Eos % (Auto) 4.2 % (1.5-5.0) 07/26/17 06:30 Baso % (Auto) 0.5 % (0.0-3.0) 07/26/17 06:30 Gran # 4.18 (1.4-6.5) 07/26/17 06:30 Lymph # (Auto) 2.9 (1.2-3.4) 07/26/17 06:30 Gregory # (Auto) 0.6 (0.1-0.6) 07/26/17 06:30 Eos # (Auto) 0.3 (0.0-0.7) 07/26/17 06:30 Baso # (Auto) 0.04 K/mm3 (0.0-2.0) 07/26/17 06:30 PT 11.7 SECONDS (9.4-12.5) 07/22/17 22:15 INR 1.03 (0.93-1.08) 07/22/17 22:15 APTT 34.8 Seconds (25.1-36.5) 07/22/17 22:15 Sodium 142 mmol/L (132-148) 07/26/17 06:30 Potassium 3.4 mmol/L (3.6-5.0) L 07/26/17 06:30 Chloride 102 mmol/L (98-107) 07/26/17 06:30 Carbon Dioxide 26 mmol/L (21-33) 07/26/17 06:30 Anion Gap 17 (10-20) 07/26/17 06:30 BUN 3 mg/dL (7-21) L 07/26/17 06:30 Creatinine 0.6 mg/dl (0.7-1.2) L 07/26/17 06:30 Est GFR ( Amer) > 60 07/26/17 06:30 Est GFR (Non-Af Amer) > 60 07/26/17 06:30 Random Glucose 99 mg/dL (70-110) 07/26/17 06:30 Calcium 9.0 mg/dL (8.4-10.5) 07/26/17 06:30 Total Bilirubin 0.2 mg/dL (0.2-1.3) 07/26/17 06:30 AST 37 U/L (14-36) H 07/26/17 06:30 ALT 76 U/L (7-56) H 07/26/17 06:30 Alkaline Phosphatase 107 U/L (38-126) 07/26/17 06:30 Total Protein 7.0 g/dL (5.8-8.3) 07/26/17 06:30 Albumin 4.1 g/dL (3.0-4.8) 07/26/17 06:30 Globulin 2.9 gm/dL 07/26/17 06:30 Albumin/Globulin Ratio 1.4 (1.1-1.8) 07/26/17 06:30 Amylase < 30 U/L (35-125) L 07/22/17 22:15 Lipase 26 U/L (23-300) 07/22/17 22:15 Urine Color Yellow (YELLOW) 07/22/17 22:42 Urine Appearance Sl cloudy (CLEAR) 07/22/17 22:42 Urine pH 6.0 (4.7-8.0) 07/22/17 22:42 Ur Specific [place] >= 1.030 (1.005-1.035) 07/22/17 22:42 Urine Protein 30 mg/dL (<30 mg/dL) H 07/22/17 22:42 Urine Glucose (UA) Negative mg/dL (NEGATIVE) 07/22/17 22:42 Urine Ketones Trace mg/dL (NEGATIVE) H 07/22/17 22:42 Urine Blood Negative (NEGATIVE) 07/22/17 22:42 Urine Nitrate Negative (NEGATIVE) 07/22/17 22:42 Urine Bilirubin Negative (NEGATIVE) 07/22/17 22:42 Urine Urobilinogen 0.2 E.U./dL (<1 E.U./dL) 07/22/17 22:42 Ur Leukocyte Esterase Negative [place]/uL (NEGATIVE) 07/22/17 22:42 Urine RBC 0 - 2 /hpf (0-2) 07/22/17 22:42 Urine WBC 0 - 2 /hpf (0-6) 07/22/17 22:42 Ur Epithelial Cells 1 - 3 /hpf (0-5) 07/22/17 22:42 Urine Opiates Screen Positive (NEGATIVE) H 07/24/17 09:00 Urine Methadone Screen Negative (NEGATIVE) 07/24/17 09:00 Ur Barbiturates Screen Negative (NEGATIVE) 07/24/17 09:00 Ur Phencyclidine Scrn Negative (NEGATIVE) 07/24/17 09:00 Ur Amphetamines Screen Negative (NEGATIVE) 07/24/17 09:00 U Benzodiazepines Scrn Negative (NEGATIVE) 07/24/17 09:00 U Oth Cocaine Metabols Negative (NEGATIVE) 07/24/17 09:00 U Cannabinoids Screen Negative (NEGATIVE) 07/24/17 09:00 Alcohol, Quantitative < 10 mg/dL (0-10) 07/22/17 22:15 - Hospital Course Hospital Course: 31 year old female with a past medical history of asthma, polysubstance abuse, and pancreatitis who presented with intractable periumbilical abdominal pain. CT Abdomen/Pelvis showed mild wall thickening of the descending colon with mild colitis no excluded and stable extrahepatic bile duct dilation to 12mm s/p cholecystectomy. Patient had EUS done for evaluation of dilated CBD found on MRCP, which showed a CBD dilated to 8mm with no anatomical abnormalities of the pancreas, esophagitis and gastritis. She is taken for diagnostic laparoscopy with hernia repair with mesh on 07/26/17. Zofran PRN for N/V, Miralax for constipation, Protonix, Carafate, Dilaudid, Morphine, Neurontin, Toradol and Flexeril for pain control were administered during admission. Patient had her diet advanced as tolerated and was weaned off of pain medications. Patient was found to have elevated AST and ALT, which had downtrended from her previous admission. Hepatitis panel and autoimmune workup were negative. Albuterol nebs PRN were started for asthma. Home Effexor, Klonopin, Vistaril and ativan were started for anxiety/depression. Nicoderm CQ TD daily was started for history of tobacco abuse. Patient was discharged on 07/26/17 with the following instructions: Please follow up with your primary care doctor within one week for post hospitalization follow up Please follow up with your surgeon as directed by surgical team. The contact information from his office has been provided in this paperwork Please take all medications as prescribed If your symptoms worsen or persist, please seek emergency medical attention Please refrain from taking opiate based pain medications as these can exacerbate your abdominal pain and potentially cause an ileus Please refrain from using tobacco products in any form as these are detrimental to your health - Date & Time of H&P Date of H&P: 07/23/17 Time of H&P: 02:24 Discharge Exam - Head Exam Head Exam: ATRAUMATIC, NORMAL INSPECTION, NORMOCEPHALIC - Eye Exam Eye Exam: EOMI, Normal appearance, PERRL Pupil Exam: NORMAL ACCOMODATION, PERRL - ENT Exam ENT Exam: Normal Exam - Neck Exam Neck exam: Full Rom, Normal Inspection - Respiratory Exam Respiratory Exam: Clear to PA & Lateral, NORMAL BREATHING PATTERN, UNREMARKABLE - Cardiovascular Exam Cardiovascular Exam: REGULAR RHYTHM, RRR, +S1, +S2 - GI/Abdominal Exam GI & Abdominal Exam: Normal Bowel Sounds, Tenderness (TTP out of proportion with exam), Unremarkable - Extremities Exam Extremities exam: full ROM, normal capillary refill, normal inspection, pedal pulses present - Back Exam Back exam: NORMAL INSPECTION - Neurological Exam Neurological exam: Alert, CN II-XII Intact, Normal Gait, Oriented x3, Reflexes Normal - Psychiatric Exam Psychiatric exam: Normal Affect, Normal Mood - Skin Skin Exam: Dry, Intact, Normal Color, Warm Discharge Plan - Discharge Medications Prescriptions: Pantoprazole [Protonix EC Tab] 40 mg PO 0600 #14 ect Sucralfate [Carafate Tab] 1 gm PO 0600,1600 #28 tab traMADol [Ultram] 50 mg PO Q6 PRN #20 tab PRN Reason: Pain, Moderate (4-7) - Follow Up Plan Condition: GOOD Disposition: HOME/ ROUTINE Instructions: Gastric Ulcer (DC), Acute Abdomen (Belly Pain), Adult (DC), Abdominal Hernia (DC), Gastritis (DC), Quitting Smoking, Opioid Use Disorder, Open Herniorrhaphy (DC), Laparoscopic Herniorrhaphy (DC), Inguinal Hernia (DC) Additional Instructions: Please follow up with your primary care doctor within one week for post hospitalization follow up Please follow up with your surgeon as directed by surgical team. The contact information from his office has been provided in this paperwork Please take all medications as prescribed If your symptoms worsen or persist, please seek emergency medical attention Please refrain from taking opiate based pain medications as these can exacerbate your abdominal pain and potentially cause an ileus Please refrain from using tobacco products in any form as these are detrimental to your health Referrals: Kennedi Jean MD [Primary Care Provider] - Lebron Meraz MD [Staff Provider] - Luis Enrique Javed MD [Staff Provider] -
== END 2017-07-26 17:58 | disposition home or self-care (01) | DRG 160 ==
LOC: ED 21:04 → ERH 07-23 00:53 → 5RNO 07-23 02:08 → OBSVTOIN 07-24 14:42
PROVIDERS: ADMIT Hospitalist; ATTEND Internal Medicine
PROC: 0DB68ZX Excision of Stomach, Via Natural or Artificial Opening Endoscopic, Diagnostic (ICD-10-PCS; 2017-07-24)
PROC: BF40ZZZ Ultrasonography of Bile Ducts (ICD-10-PCS; 2017-07-24)
PROC: BF47ZZZ Ultrasonography of Pancreas (ICD-10-PCS; 2017-07-24)
PROC: 0DB98ZX Excision of Duodenum, Via Natural or Artificial Opening Endoscopic, Diagnostic (ICD-10-PCS; 2017-07-24 11:45)
PROC: 0WUF4JZ Supplement Abdominal Wall with Synthetic Substitute, Percutaneous Endoscopic Approach (ICD-10-PCS; principal; 2017-07-26 07:30)
DX: K43.0 Incisional hernia with obstruction, without gangrene (principal); K83.8 Other specified diseases of biliary tract; K20.9 Esophagitis, unspecified; K29.60 Other gastritis without bleeding; F32.9 Major depressive disorder, single episode, unspecified; K58.9 Irritable bowel syndrome, unspecified; K76.0 Fatty (change of) liver, not elsewhere classified; F41.9 Anxiety disorder, unspecified; J45.909 Unspecified asthma, uncomplicated; F17.210 Nicotine dependence, cigarettes, uncomplicated

== ENCOUNTER 2017-08-29 00:36 | Emergency (ER) | payer MEDICAID ==
[2017-08-29 01:04] VITALS: BMI 31.7
[2017-08-29 01:08] VITALS: RESP 16; TEMP 98.1; O2SAT 96
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
[2017-08-29 03:24] VITALS: BP 96/51; PULSE 62
--- NOTE | 2017-08-29 04:14 | CT ---
EXAM: CT Head Without Intravenous Contrast CLINICAL HISTORY: 32 years old, female; Pain; Headache; Additional info: Trauma TECHNIQUE: Axial computed tomography images of the head/brain without intravenous contrast. All CT scans at this facility use one or more dose reduction techniques, viz.: automated exposure control; ma/kV adjustment per patient size (including targeted exams where dose is matched to indication; i.e. head); or iterative reconstruction technique. Coronal and sagittal reformatted images were created and reviewed. COMPARISON: No relevant prior studies available. FINDINGS: Brain: Minimal atrophy. No intracranial hemorrhage. No mass. No edema. Cerebellar tonsillar ectopia, incompletely imaged. Ventricles: No hydrocephalus. Bones/joints: No acute fracture. Soft tissues: Unremarkable. Sinuses: No acute sinusitis. Mastoid air cells: No mastoid effusion. Orbits: Unremarkable as visualized. IMPRESSION: 1. No intracranial hemorrhage. 2. Cerebellar tonsillar ectopia, incompletely imaged. Followup is suggested. 3. Incidental/non-acute findings are described above.
[2017-08-29] MEDS ORDERED: TraMADol/Apap 37.5/325 mg Tab PO STA (04:21)
== END 2017-08-29 04:46 | disposition home or self-care (01) ==
LOC: ED 00:36
DX: S09.90XA Unspecified injury of head, initial encounter (principal); W01.198A Fall on same level from slipping, tripping and stumbling with subsequent striking against other object, initial encounter; Y92.000 Kitchen of unspecified non-institutional (private) residence as the place of occurrence of the external cause

== ENCOUNTER 2017-09-12 22:10 | Emergency (ER) | payer MEDICAID ==
[2017-09-12 22:11] VITALS: BMI 31.7
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
[2017-09-12] MEDS ORDERED: Morphine 4 mg/ml ISec IM STA (23:43)
[2017-09-13 00:30] VITALS: BP 125/85; PULSE 90; RESP 18; TEMP 98; O2SAT 100
--- NOTE | 2017-09-13 11:26 | US ---
PROCEDURE: Right lower extremity venous US HISTORY: Leg pain and swelling. Evaluate for DVT. PHYSICIAN(S): Dae Swan M.D. TECHNIQUE: Duplex sonography and color-flow Doppler with graded compression were used to evaluate the deep venous system of the right lower extremity. FINDINGS: The visualized deep venous system of the right lower extremity is sonographically normal and compressible. Normal waveforms and augmentation are seen. There is no sonographic evidence for deep venous thrombosis in the visualized segments of the right lower extremity. IMPRESSION: 1. No sonographic evidence for deep venous thrombosis in the visualized segments of the right lower extremity.
== END 2017-09-13 00:25 | disposition home or self-care (01) ==
LOC: ED 22:10
DX: M54.40 Lumbago with sciatica, unspecified side (principal)
CPT/HCPCS: 93971; 96372; 99284; J2270

== ENCOUNTER 2017-11-28 22:40 | Emergency (ER) | payer MEDICAID ==
[2017-11-28 22:51] VITALS: BMI 28.3
[2017-11-28 22:58] VITALS: RESP 18
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
[2017-11-28] MEDS ORDERED: Morphine 2 mg/ml ISec IM STA (23:55)
[2017-11-29 03:07] VITALS: BP 101/70; PULSE 79
[2017-11-29 03:17] VITALS: O2SAT 99
--- NOTE | 2017-11-29 08:34 | CT ---
Date of service: 11/29/2017 PROCEDURE: CT Lumbar Spine without contrast HISTORY: back pain s/p trauma COMPARISON: None. TECHNIQUE: Axial computed tomography images were obtained of the lumbar spine without the use of intravenous contrast. Coronal and sagittal reformatted images were created and reviewed. Radiation dose: Total exam DLP = 720 mGy-cm. This CT exam was performed using one or more of the following dose reduction techniques: Automated exposure control, adjustment of the mA and/or kV according to patient size, and/or use of iterative reconstruction technique. FINDINGS: VERTEBRAE: Unremarkable. No fracture. Normal alignment. DISCS/SPINAL CANAL/NEURAL FORAMINA: L1-2: Unremarkable. L2-3: Unremarkable. L3-4: Unremarkable. L4-5: There is a disc bulge with a mild degree of central stenosis. This could also be seen on the abdominal CT dated 07/22/2017 L5-S1: Unremarkable. PARASPINAL SOFT TISSUES: Unremarkable. OTHER FINDINGS: The report concurs with the preliminary [facility] report IMPRESSION: Chronic disc bulge at L4-5. No acute findings
== END 2017-11-29 03:12 | disposition home or self-care (01) ==
LOC: ED 22:40
DX: M54.5 Low back pain (principal)
CPT/HCPCS: 72131; 96372; 99284; J2270

== ENCOUNTER 2018-01-25 17:15 | Observation (INO) | payer MEDICAID ==
[2018-01-25] MEDS ORDERED: Sodium Chloride 0.9% 500 ML IV STA (18:01)
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
[2018-01-25 18:56] LABS: URINE BILIRUBIN NEGATIVE (NEGATIVE); URINE BLOOD NEGATIVE (NEGATIVE); URINE GLUCOSE (UA) NEGATIVE (NEGATIVE); URINE LEUKOCYTE ESTERASE TRACE Leu/uL (NEGATIVE); URINE PROTEIN NEGATIVE mg/dL (<30 mg/dL); URINE UROBILINOGEN 0.2 E.U./dL (<1 E.U./dL)
[2018-01-25 18:59] LABS: BASO # 0.02 K/mm3 (0.0-2.0); BASO % 0.2 % (0.0-3.0); EOS # 0.1 (0.0-0.7); EOS % 0.4 % (1.5-5.0); GRAN # 7.79 (1.4-6.5); GRAN % 68.2 % (50.0-68.0); HEMOGLOBIN 13.8 g/dL (12.0-16.0); LYMPH # 2.9 (1.2-3.4); MEAN CELL VOLUME 78.8 fl (80.0-105.0); MEAN CORPUSCULAR HEMOGLOBIN 26.4 pg (25.0-35.0); MEAN CORPUSCULAR HGB CONC 33.5 g/dl (31.0-37.0); MEAN PLATELET VOLUME 10.8 fl (7.0-11.0); MONO # 0.7 (0.1-0.6); MONO % 6.2 % (1.0-6.0); RBC 5.23 10^6/uL (3.5-6.1); RED CELL DISTRIBUTION WIDTH 15.1 % (11.5-14.5); WHITE BLOOD COUNT 11.4 10^3/ul (4.5-11.0)
[2018-01-25 19:11] LABS: ALB/GLOB RATIO 1.5 (1.1-1.8); ALBUMIN 5.2 g/dL (3.0-4.8); ALT/SGPT 44 U/L (7-56); AMYLASE 50 U/L (35-125); AST/SGOT 33 U/L (14-36); BLOOD UREA NITROGEN 9 mg/dL (7-21); CALCIUM 10.1 mg/dL (8.4-10.5); GFR NON-AFRICAN AMERICAN > 60; LIPASE 24 U/L (23-300); URINE APPEARANCE CLEAR (CLEAR); URINE COLOR YELLOW (YELLOW)
[2018-01-25 19:13] LABS: ACETAMINOPHEN < 10.0 ug/ml (10.0-20.0); SALICYLATE < 1 mg/dL (2.0-20.0)
[2018-01-25 20:20] LABS: URINE RBC 0 - 2 /hpf (0-2)
[2018-01-25 20:28] LABS: HCG,QUALITATIVE URINE NEGATIVE (NEGATIVE)
[2018-01-25] MEDS ORDERED: Albuterol-Ipratrop 3 mg / 0.5 (3 ml) UD IH PRN (21:36)
[2018-01-25] MEDS ORDERED: DiphenhydrAMINE 50 mg/ml Inj IVP PRN (21:36)
[2018-01-25] MEDS ORDERED: Sodium Chloride 0.9% 1,000 ML IV SCH ×2 (21:45→21:49)
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
[2018-01-25] MEDS: DiphenhydrAMINE 50 mg/ml Inj IVP PRN (22:54)
[2018-01-26] MEDS ORDERED: Albuterol-Ipratrop 3 mg / 0.5 (3 ml) UD IH SCH (02:00)
[2018-01-26] MEDS ORDERED: DiphenhydrAMINE 50 mg/ml Inj IVP ONE ×2 (03:30→15:58)
[2018-01-26 06:23] VITALS: BMI 26.6
--- NOTE | 2018-01-26 07:15 | CP.PCM.PN ---
<RosemaryLeanne posada - Last Filed: 01/26/18 11:43> Subjective - Date & Time of Evaluation Date of Evaluation: 01/26/18 Time of Evaluation: 07:15 - Subjective Subjective: Pgy3 Medicine note for Dr. Navarro Patient seen and examined at bedside. Nursing reported that overnight patient requested Benadryl two times (10pm and 3am). This AM patient was lying comfortably in bed. She reported her abdominal pain was a 7/10, epigastric and radiating diffusely, and had been present for weeks. She also reported that at home she was nauseous and had multiple episodes of nonbloody nonbiliuos emesis, however denied any further episodes of vomiting since admission. Patient stated that the last time she took oxycodone 95mg for her low back pain was 6 days ago - she admitted that she does not get prescribed this but gets it from the streets. Patient also reported using multiple enemas [not prescribed by her PMD ] for constipation, however, she stated she has been having some loose stool and had an episode of loose stool at 3am overnight. Patient is tolerating her liquid diet. She denied other acute complaints of fever, chills, dizziness, chest pain, palpitations, SOB, cough, pain/swelling in her legs b/l. She was requesting an EGD and was explained to that the GI team would decide whether it is necessary on this admission. Objective - Vital Signs/Intake and Output Vital Signs (last 24 hours): Temp Pulse Resp BP Pulse Ox 98.2 F 75 18 102/75 100 01/26/18 01:53 01/26/18 01:53 01/26/18 01:53 01/26/18 01:53 01/25/18 22:07 Intake and Output: 01/26/18 01/26/18 06:59 18:59 Intake Total 180 Balance 180 - Medications Medications: Current Medications Albuterol/Ipratropium (Duoneb 3 Mg/0.5 Mg (3 Ml) Ud) 3 ml IH [id number] PRN PRN Reason: Shortness of Breath Clonazepam (Klonopin) 0.5 mg PO TID PRN; Protocol PRN Reason: Anxiety Diphenhydramine HCl (Benadryl) 25 mg IVP HS PRN PRN Reason: Allergy symptoms Last Admin: 01/25/18 22:54 Dose: 25 mg Gabapentin (Neurontin) 300 mg PO TID [facility] PRN Reason: Protocol Hydrocortisone (Anusol-Hc) 0 gm MT BID [facility] Sodium Chloride (Sodium Chloride 0.9%) 1,000 mls @ 125 mls/hr IV .Q8H [facility] Last Admin: 01/25/18 22:21 Dose: Not Given Ketorolac Tromethamine (Toradol) 15 mg IVP Q6 PRN PRN Reason: Pain, moderate (4-7) Montelukast Sodium (Singulair) 10 mg PO DAILY [facility] Venlafaxine [Effexor 50 Mg Tab] (Home Med) 50 mg PO BID [facility] Ondansetron HCl (Zofran Inj) 4 mg IVP Q4H PRN PRN Reason: Nausea/Vomiting Pantoprazole Sodium (Protonix Inj) 40 mg IVP DAILY [facility] Polyethylene Glycol (Miralax) 17 gm PO DAILY [facility] Senna/Docusate Sodium (Senokot S 50 Mg-8.6 Mg) 1 tab PO BID [facility] Sodium Phosphate (Fleet Enema) 135 ml RC DAILY [facility] Stop: 01/26/18 23:59 - Constitutional Appears: Non-toxic, No Acute Distress - Head Exam Head Exam: ATRAUMATIC, NORMAL INSPECTION, NORMOCEPHALIC - Eye Exam Eye Exam: EOMI, Normal appearance, PERRL. absent: Conjunctival injection, Scleral icterus Pupil Exam: NORMAL ACCOMODATION - ENT Exam ENT Exam: Mucous Membranes Moist - Neck Exam Neck Exam: Full ROM - Respiratory Exam Respiratory Exam: Clear to Ausculation Bilateral, NORMAL BREATHING PATTERN. absent: Accessory Muscle Use, Rales, Rhonchi, Wheezes, Respiratory Distress - Cardiovascular Exam Cardiovascular Exam: REGULAR RHYTHM, RRR, +S1, +S2 - GI/Abdominal Exam GI & Abdominal Exam: Soft, Tenderness (diffuse to palpation), Normal Bowel Sounds. absent: Distended, Firm, Guarding, Rigid, Pulsatile Mass, Rebound - Rectal Exam Rectal Exam: Deferred - Extremities Exam Extremities Exam: Normal Capillary Refill, Normal Inspection. absent: Pedal Edema - Neurological Exam Neurological Exam: Alert, Awake, Oriented x3 - Psychiatric Exam Psychiatric exam: Normal Affect, Normal Mood - Skin Skin Exam: Dry, Intact, Normal Color, Warm Assessment and Plan - Assessment and Plan (Free Text) Assessment: 32yo female PMHx COPD, asthma, polysubstance abuse, pancreatitis who presents with abdominal pain for the past couple of days. Pt also reported a 3 week history of constipation, resistant to soapy enemas, exlax, and fleet enemas however upon admission, patient had an episode of loose stool. Plan: Abdominal pain - Likely secondary to constipation secondary to opioid abuse - CT Abd/pelvis without contrast 01/23 no evidence of acute appendicitis. No evidence of diverticulitis or colitis. Slightly heterogeneous prominent sized uterus and left adnexa. - Toradol prn pain and tylenol prn pain - Zofran prn nausea - Bowel regimen: Miralax and Senna - Anusol cream as needed - NS@125cc - f/u urine culture UA: trace leuk esterase - GI Dr. Pedraza consulted- f/u reccs Polysubstance abuse; suboxone - pt uses suboxone at home, but breaks the doses up. Medication was prescribed by physician as per pt. - will not continue suboxone maintenance at this time Hx of COPD - Duoneb q6h prn sob - continue home Singulair Chronic pain - continue home Neurontin and Effexor - Pt instructed not to take her Tramadol with Effexor due to risk of serotonin syndrome - Pt instructed to bring home Effexor as her dose is non-formulary Anxiety - Klonopin 0.5 mg PO TID GI ppx: Protonix 40mg ivp q12 DVT ppx: SCDs, Heparin 5000 q12 Diet: CLD Discussed with Dr. Melanie Riley PGY3 <Bin Navarro - Last Filed: 01/27/18 13:33> Objective - Vital Signs/Intake and Output Vital Signs (last 24 hours): Temp Pulse Resp BP Pulse Ox 98.3 F 61 18 90/62 L 98 01/27/18 08:26 01/27/18 08:26 01/27/18 08:26 01/27/18 08:26 01/27/18 08:26 - Medications Medications: Current Medications Acetaminophen (Tylenol 325mg Tab) 650 mg PO Q6H PRN PRN Reason: Pain, moderate (4-7) Last Admin: 01/26/18 21:33 Dose: 650 mg Albuterol/Ipratropium (Duoneb 3 Mg/0.5 Mg (3 Ml) Ud) 3 ml IH [id number] PRN PRN Reason: Shortness of Breath Clonazepam (Klonopin) 0.5 mg PO TID PRN; Protocol PRN Reason: Anxiety Last Admin: 01/27/18 13:13 Dose: 0.5 mg Diphenhydramine HCl (Benadryl) 25 mg IVP HS PRN PRN Reason: Allergy symptoms Last Admin: 01/26/18 21:31 Dose: 25 mg Diphenhydramine HCl (Benadryl) 25 mg IVP Q4H PRN PRN Reason: Anxiety Last Admin: 01/27/18 10:44 Dose: 25 mg Gabapentin (Neurontin) 300 mg PO TID [facility] PRN Reason: Protocol Last Admin: 01/27/18 13:12 Dose: 300 mg Heparin Sodium (Porcine) (Heparin) 5,000 units SC Q12 [facility] PRN Reason: Protocol Last Admin: 01/27/18 09:29 Dose: 5,000 units Hydrocortisone (Anusol-Hc) 0 gm MT BID [facility] Last Admin: 01/27/18 09:17 Dose: Not Given Sodium Chloride (Sodium Chloride 0.9%) 1,000 mls @ 100 mls/hr IV .Q10H [facility] Last Admin: 01/26/18 18:13 Dose: 100 mls/hr Ketorolac Tromethamine (Toradol) 15 mg IVP Q6 PRN PRN Reason: Pain, moderate (4-7) Last Admin: 01/27/18 09:30 Dose: 15 mg Montelukast Sodium (Singulair) 10 mg PO 2100 [facility] Last Admin: 01/26/18 21:31 Dose: 10 mg Venlafaxine [Effexor 50 Mg Tab] (Home Med) 50 mg PO BID [facility] Last Admin: 01/27/18 09:33 Dose: 50 mg Ondansetron HCl (Zofran Inj) 4 mg IVP Q4H PRN PRN Reason: Nausea/Vomiting Pantoprazole Sodium (Protonix Inj) 40 mg IVP Q12 [facility] Last Admin: 01/27/18 09:29 Dose: 40 mg Polyethylene Glycol (Miralax) 17 gm PO DAILY [facility] Last Admin: 01/27/18 09:18 Dose: Not Given Senna/Docusate Sodium (Senokot S 50 Mg-8.6 Mg) 1 tab PO BID [facility] Last Admin: 01/27/18 09:18 Dose: Not Given Attending/Attestation - Attestation I have personally seen and examined this patient.: Yes I have fully participated in the care of the patient.: Yes I have reviewed all pertinent clinical information, including history, physical exam and plan: Yes Notes (Text): 01/27/18 13:17 attending note; Patient seen and examined with resident. Patient is resting comfortably. Complaining of epigastric pain. complaining of poor po intake. denies any nausea, vomiting. Had one BM this morning. Patient is a 32 year old female with PMH of asthma, polysubstance abuse, pancreatitis,hernia repair is admitted with with abdominal pain for the past couple of days. patient also complained of constipation. Patient took enemas at home. The patient was also taking laxatives at home. patient some opiates because of increasing abdominal s ago. CT abdomen and pelvis showed no constipation or colitis. GI evaluation appreciated. MRCP with and without contrast ordered. we will follow up with GI closely. Anxiety; continue Benadryl when necessary. Patient refused Xanax. Continue GI prophylaxis. upon discharge the patient will follow up with PMD DR. conley. Patient needs close GI follow up.
[2018-01-26 07:20] LABS: BASO # 0.02 K/mm3 (0.0-2.0); BASO % 0.2 % (0.0-3.0); EOS # 0.1 (0.0-0.7); EOS % 1.6 % (1.5-5.0); GRAN # 4.49 (1.4-6.5); GRAN % 50.5 % (50.0-68.0); HEMOGLOBIN 12.8 g/dL (12.0-16.0); LYMPH # 3.6 (1.2-3.4); LYMPH % 40.4 % (22.0-35.0); MEAN CELL VOLUME 78.7 fl (80.0-105.0); MEAN CORPUSCULAR HEMOGLOBIN 26.2 pg (25.0-35.0); MEAN CORPUSCULAR HGB CONC 33.2 g/dl (31.0-37.0); MEAN PLATELET VOLUME 11.4 fl (7.0-11.0); MONO # 0.7 (0.1-0.6); MONO % 7.3 % (1.0-6.0); RBC 4.89 10^6/uL (3.5-6.1); RED CELL DISTRIBUTION WIDTH 15.2 % (11.5-14.5); WHITE BLOOD COUNT 8.9 10^3/ul (4.5-11.0)
[2018-01-26 07:40] LABS: ALB/GLOB RATIO 1.6 (1.1-1.8); ALBUMIN 4.3 g/dL (3.0-4.8); ALT/SGPT 38 U/L (7-56); AST/SGOT 26 U/L (14-36); BLOOD UREA NITROGEN 11 mg/dL (7-21); CALCIUM 9.5 mg/dL (8.4-10.5); GFR NON-AFRICAN AMERICAN > 60
[2018-01-26] MEDS: POLYETHYLENE GLYCOL 3350 17 GM/Dose PACKET PO SCH (09:27)
[2018-01-26] MEDS: Hydrocortisone 2.5% Rectal Cream(30 gm) PR SCH ×2 (09:28→18:04)
[2018-01-26] MEDS: Docusate-Senna 50 mg-8.6 mg Tab PO SCH ×2 (09:29→18:07)
[2018-01-26] MEDS ORDERED: Sodium Chloride 0.9% 1,000 ML IV SCH (14:51)
[2018-01-26] MEDS ORDERED: DiphenhydrAMINE 50 mg/ml Inj IVP STA ×2 (16:20→23:17)
[2018-01-26] MEDS ORDERED: Gadodiamide 287 MG/ML VIAL (15ML) IV ONE (16:55)
[2018-01-26] MEDS: VENLAFAXINE PO SCH (18:08)
[2018-01-26] MEDS: DiphenhydrAMINE 50 mg/ml Inj IVP PRN (21:31)
[2018-01-27] MEDS ORDERED: DiphenhydrAMINE 50 mg/ml Inj IVP STA ×3 (04:47→12:18)
[2018-01-27] MEDS: Hydrocortisone 2.5% Rectal Cream(30 gm) PR SCH ×2 (09:17→17:07)
[2018-01-27] MEDS: Docusate-Senna 50 mg-8.6 mg Tab PO SCH ×2 (09:18→17:08)
[2018-01-27] MEDS: POLYETHYLENE GLYCOL 3350 17 GM/Dose PACKET PO SCH (09:18)
[2018-01-27] MEDS: VENLAFAXINE PO SCH ×2 (09:33→17:19)
[2018-01-27] MEDS: DiphenhydrAMINE 50 mg/ml Inj IVP PRN ×2 (10:44→17:18)
--- NOTE | 2018-01-27 14:08 | CP.PCM.PN ---
<CristobalKhalif Nice - Last Filed: 01/27/18 13:59> Subjective - Date & Time of Evaluation Date of Evaluation: 01/27/18 Time of Evaluation: 13:59 - Subjective Subjective: Medicine progress note - Cristobal, PGY - 2 Patient seen and examined at bedside. She was complaining today of agitation, for which she takes benadryl at home. Continues to complain of abdominal pain without episodes of nausea/vomiting. Patient otherwise denies any chest pain or shortness of breath. Objective - Vital Signs/Intake and Output Vital Signs (last 24 hours): Temp Pulse Resp BP Pulse Ox 98.3 F 61 18 90/62 L 98 01/27/18 08:26 01/27/18 08:26 01/27/18 08:26 01/27/18 08:26 01/27/18 08:26 - Medications Medications: Current Medications Acetaminophen (Tylenol 325mg Tab) 650 mg PO Q6H PRN PRN Reason: Pain, moderate (4-7) Last Admin: 01/26/18 21:33 Dose: 650 mg Albuterol/Ipratropium (Duoneb 3 Mg/0.5 Mg (3 Ml) Ud) 3 ml IH [id number] PRN PRN Reason: Shortness of Breath Clonazepam (Klonopin) 0.5 mg PO TID PRN; Protocol PRN Reason: Anxiety Last Admin: 01/27/18 13:13 Dose: 0.5 mg Diphenhydramine HCl (Benadryl) 25 mg IVP HS PRN PRN Reason: Allergy symptoms Last Admin: 01/26/18 21:31 Dose: 25 mg Diphenhydramine HCl (Benadryl) 25 mg IVP Q4H PRN PRN Reason: Anxiety Last Admin: 01/27/18 10:44 Dose: 25 mg Gabapentin (Neurontin) 300 mg PO TID [facility] PRN Reason: Protocol Last Admin: 01/27/18 13:12 Dose: 300 mg Heparin Sodium (Porcine) (Heparin) 5,000 units SC Q12 [facility] PRN Reason: Protocol Last Admin: 01/27/18 09:29 Dose: 5,000 units Hydrocortisone (Anusol-Hc) 0 gm GA BID [facility] Last Admin: 01/27/18 09:17 Dose: Not Given Sodium Chloride (Sodium Chloride 0.9%) 1,000 mls @ 100 mls/hr IV .Q10H [facility] Last Admin: 01/26/18 18:13 Dose: 100 mls/hr Ketorolac Tromethamine (Toradol) 15 mg IVP Q6 PRN PRN Reason: Pain, moderate (4-7) Last Admin: 01/27/18 09:30 Dose: 15 mg Montelukast Sodium (Singulair) 10 mg PO 2100 [facility] Last Admin: 01/26/18 21:31 Dose: 10 mg Venlafaxine [Effexor 50 Mg Tab] (Home Med) 50 mg PO BID [facility] Last Admin: 01/27/18 09:33 Dose: 50 mg Ondansetron HCl (Zofran Inj) 4 mg IVP Q4H PRN PRN Reason: Nausea/Vomiting Pantoprazole Sodium (Protonix Inj) 40 mg IVP Q12 [facility] Last Admin: 01/27/18 09:29 Dose: 40 mg Polyethylene Glycol (Miralax) 17 gm PO DAILY [facility] Last Admin: 01/27/18 09:18 Dose: Not Given Senna/Docusate Sodium (Senokot S 50 Mg-8.6 Mg) 1 tab PO BID [facility] Last Admin: 01/27/18 09:18 Dose: Not Given - Constitutional Appears: Well - Head Exam Head Exam: ATRAUMATIC, NORMAL INSPECTION, NORMOCEPHALIC - Eye Exam Eye Exam: EOMI, Normal appearance, PERRL Pupil Exam: NORMAL ACCOMODATION, PERRL - ENT Exam ENT Exam: Mucous Membranes Moist, Normal Exam - Neck Exam Neck Exam: Full ROM, Normal Inspection. absent: Lymphadenopathy - Respiratory Exam Respiratory Exam: Clear to Ausculation Bilateral, NORMAL BREATHING PATTERN - Cardiovascular Exam Cardiovascular Exam: REGULAR RHYTHM, +S1, +S2. absent: Murmur - GI/Abdominal Exam GI & Abdominal Exam: Soft, Normal Bowel Sounds. absent: Tenderness - Extremities Exam Extremities Exam: Full ROM, Normal Capillary Refill, Normal Inspection. absent : Joint Swelling, Pedal Edema - Back Exam Back Exam: NORMAL INSPECTION - Neurological Exam Neurological Exam: Alert, Awake, CN II-XII Intact, Normal Gait, Oriented x3 - Psychiatric Exam Psychiatric exam: Normal Affect, Normal Mood - Skin Skin Exam: Dry, Intact, Normal Color, Warm Assessment and Plan - Assessment and Plan (Free Text) Assessment: 32yo female PMHx COPD, asthma, polysubstance abuse, pancreatitis who presents with abdominal pain for the past couple of days. Patient has been admitted to [facility] [place] for similar complaints several times in the past, and has exhibited pain- seeking behavior. CT A/P on admission showed no evidence of acute bowel pathology - but did show slightly heterogeneous and prominent uterus. UA did show trace leuk esterase but patient does not have urinary complaints. Plan: Abdominal pain - Likely secondary to constipation secondary to opioid abuse - Toradol prn pain and tylenol prn pain; Zofran prn nausea - Bowel regimen: Miralax and Senna; Anusol cream as needed - NS @ 100cc/hr - MRCP taken, pending read - GI Dr. Pedraza consulted- f/u recs Polysubstance abuse on suboxone - Advised cessation - Will not continue suboxone maintenance at this time Hx of COPD - Duoneb q6h prn sob - Continue home Singulair Chronic pain - Continue home Neurontin and Effexor - Pt instructed not to take her Tramadol with Effexor due to risk of serotonin syndrome - Pt instructed to bring home Effexor as her dose is non-formulary Anxiety - Klonopin 0.5 mg PO TID - Start benadryl IVP q4 PRN GI/DVT PPX - Protonix/Heparin <Bin Navarro - Last Filed: 01/27/18 17:57> Objective - Vital Signs/Intake and Output Vital Signs (last 24 hours): Temp Pulse Resp BP Pulse Ox 99 F 69 16 88/53 L 97 01/27/18 16:11 01/27/18 16:11 01/27/18 16:11 01/27/18 16:11 01/27/18 16:11 - Medications Medications: Current Medications Acetaminophen (Tylenol 325mg Tab) 650 mg PO Q6H PRN PRN Reason: Pain, moderate (4-7) Last Admin: 01/26/18 21:33 Dose: 650 mg Albuterol/Ipratropium (Duoneb 3 Mg/0.5 Mg (3 Ml) Ud) 3 ml IH [id number] PRN PRN Reason: Shortness of Breath Clonazepam (Klonopin) 0.5 mg PO TID PRN; Protocol PRN Reason: Anxiety Last Admin: 01/27/18 13:13 Dose: 0.5 mg Diphenhydramine HCl (Benadryl) 25 mg IVP HS PRN PRN Reason: Allergy symptoms Last Admin: 01/26/18 21:31 Dose: 25 mg Diphenhydramine HCl (Benadryl) 25 mg IVP Q4H PRN PRN Reason: Anxiety Last Admin: 01/27/18 17:18 Dose: 25 mg Gabapentin (Neurontin) 300 mg PO TID [facility] PRN Reason: Protocol Last Admin: 01/27/18 17:17 Dose: 300 mg Heparin Sodium (Porcine) (Heparin) 5,000 units SC Q12 [facility] PRN Reason: Protocol Last Admin: 01/27/18 09:29 Dose: 5,000 units Hydrocortisone (Anusol-Hc) 0 gm GA BID [facility] Last Admin: 01/27/18 17:07 Dose: Not Given Sodium Chloride (Sodium Chloride 0.9%) 1,000 mls @ 100 mls/hr IV .Q10H [facility] Last Admin: 01/26/18 18:13 Dose: 100 mls/hr Ketorolac Tromethamine (Toradol) 15 mg IVP Q6 PRN PRN Reason: Pain, moderate (4-7) Last Admin: 01/27/18 17:25 Dose: 15 mg Montelukast Sodium (Singulair) 10 mg PO 2100 [facility] Last Admin: 01/26/18 21:31 Dose: 10 mg Venlafaxine [Effexor 50 Mg Tab] (Home Med) 50 mg PO BID [facility] Last Admin: 01/27/18 17:19 Dose: 50 mg Ondansetron HCl (Zofran Inj) 4 mg IVP Q4H PRN PRN Reason: Nausea/Vomiting Pantoprazole Sodium (Protonix Inj) 40 mg IVP Q12 [facility] Last Admin: 01/27/18 09:29 Dose: 40 mg Polyethylene Glycol (Miralax) 17 gm PO DAILY [facility] Last Admin: 01/27/18 09:18 Dose: Not Given Senna/Docusate Sodium (Senokot S 50 Mg-8.6 Mg) 1 tab PO BID [facility] Last Admin: 01/27/18 17:08 Dose: Not Given Attending/Attestation - Attestation I have personally seen and examined this patient.: Yes I have fully participated in the care of the patient.: Yes I have reviewed all pertinent clinical information, including history, physical exam and plan: Yes Notes (Text): 01/27/18 17:43 attending note; Patient seen and examined with resident. Patient is resting comfortably. Complaining of epigastric pain. on liquid diet. complaining of poor po intake. denies any nausea, vomiting. Status post MRCP yesterday. Patient is requesting IV Benadryl for anxiety. Patient is a 32 year old female with PMH of asthma, polysubstance abuse, pancreatitis,hernia repair is admitted with with abdominal pain for the past couple of days. patient also complained of constipation. Patient took enemas at home. The patient was also taking laxatives at home. patient took some opiates because of increasing abdominal pain few days ago. CT abdomen and pelvis showed no constipation or colitis. GI evaluation appreciated. MRCP with and without contrast ordered. Possible discharge home if MRCP is negative. Anxiety; continue Benadryl when necessary. Patient refused Xanax. Continue GI prophylaxis. upon discharge the patient will follow up with PMD DR. conley. Patient needs close GI follow up.
--- NOTE | 2018-01-27 15:42 | MRI ---
Date of service: 01/26/2018 PROCEDURE: Magnetic Resonance Cholangiopancreatography HISTORY: Abdominal pain. No additional history provided. COMPARISON: None available. TECHNIQUE: Multiplanar, multisequence MR images of the abdomen were obtained, including heavily T2 weighted MRCP images of the biliary system. Rotating maximum intensity projection images of the biliary system were generated. FINDINGS: MRCP: Status post cholecystectomy. Common bile duct measures up to 12 mm in diameter consistent with prior cholecystectomy. No intrahepatic biliary dilatation. No filling defect appreciated. Smooth concentric distal tapering noted at the level of the ampulla. LIVER: Normal size, contour and signal intensity. No evidence of significant steatosis. No mass. No abnormal enhancement following gadolinium administration. GALLBLADDER: Cholecystectomy SPLEEN: Unremarkable. PANCREAS: No mass. No ductal dilatation. No evidence of pancreatitis. ADRENALS: Unremarkable. KIDNEYS: Unremarkable. AORTA: No aneurysm. ASCITES: None. OTHER FINDINGS: None. IMPRESSION: Status post cholecystectomy with dilatation of common bile duct up to 12 mm. No filling defect. Smooth concentric distal tapering. No pancreatic ductal dilatation or intrahepatic biliary ductal dilatation.
[2018-01-27 16:12] VITALS: BP 88/53; PULSE 69; RESP 16; TEMP 99; O2SAT 97
--- NOTE | 2018-01-28 01:09 | PN ---
DATE: 01/27/2018 SUBJECTIVE: This patient was seen and evaluated earlier today. Feels slightly better. Abdominal discomfort is better. PHYSICAL EXAMINATION: VITAL SIGNS: Temperature is 98.3, blood pressure is 90/52, pulse 61, respirations 18, O2 saturation 98%. HEENT: Atraumatic and anicteric. NECK: Supple. HEART: S1 and S2 heard. LUNGS: Bilateral air entry present. ABDOMEN: Soft. There is no mass palpable. There is tenderness present mainly in the epigastric area. There is no rebound or guarding. NEUROLOGIC: Alert, oriented. Moves all the extremities. LABORATORY DATA: Patient had an MRI of the abdomen with MRCP done showed status post cholecystectomy and dilated common bile duct up to 12 mm, no filling defect, small concentric . LFTs are essentially unremarkable. IMPRESSION: This 32-year-old patient with a long history of alcohol abuse more than 20 years. She has stopped drinking more than 3 years ago, has a history of chronic abdominal pain, on the chronic pain medication, presented with worsening of the abdominal pain for about a week. Patient was in the ER two days prior to this admission, had a CT done. She was told to have constipation and sent home. Patient has been taking some laxative to move her bowels. Patient had worsening of the symptoms, came back to the emergency room. Previous evaluations noticed. The patient did have 3 CAT scans done this admission, mainly they are done with no IV or p.o. contrast. Patient gave the history of anaphylactic reaction to iodine. Patient did have an EGD, it was done by Dr. Javed about 6 months ago, they noticed and found to have gastritis and no focal pancreatic lesion noticed. Erosive gastritis noticed, normal ampulla, mild dilation of the common bile duct was noticed up to 8 mm and no focal lesions noticed. IMPRESSION: 1. Abdominal bloating pain, postprandial, could be related to the gastroparesis. Patient did have a history of narcotic induced possibility to be considered. 2. History of gastric erosions in the last endoscopy done. Patient was advised to avoid nonsteroidal anti-inflammatory drugs and take Protonix on a regular basis. 3. Dilated common bile duct, status post cholecystectomy. No filling defects. No stones noticed. Most likely cause to be considered is post cholecystectomy plus narcotic also to be considered. 4. History of chronic constipation. Patient has been taking intermittent episodes of enemas and stool softener, Dulcolax. In this patient particularly it could be reasonable to start the patient on either Linzess or Amitiza on a long-term basis for constipation. Patient's MRCP did not reveal any focal pancreatic lesions, no obvious chronic pancreatitis was described in the ultrasound report. The recommendation is continue proton pump inhibitor, avoid alcohol, avoid nonsteroidal anti-inflammatory drugs. We will continue to closely follow up her care. I did discuss with Dr. Navarro earlier today. I also spent significant time with the patient, explaining about her condition. 1. She would get significant improvement with the change of the diet to either pureed diet or soft diet and chew well. 2. Avoiding nonsteroidal anti-inflammatory drugs. 3. Avoid narcotics. 4. Continue the PPI. 5. Patient would benefit from long-term use of either Linzess or Amitiza for chronic constipation. Patient needs to be followed by chief juvenile probation officer as an outpatient to ask further plan, and also with the PCP. Thank you very much for allowing us to participate in the care of the patient. Stephania Pedraza MD
--- NOTE | 2018-01-28 09:29 | CON ---
DATE: 01/26/2018 REASON FOR CONSULTATION: Abdominal pain. HISTORY OF PRESENT ILLNESS: This 32-year-old patient is with past medical history of long history of ethyl alcohol abuse, which she stopped about 3 years ago; history of smoking; history of chronic pancreatitis probably related to the alcohol admitted with worsening of the abdominal pain for the past one week. The patient has a history of chronic abdominal pain, has been on narcotics; history of chronic constipation. The patient was in the Emergency Room 2 days ago, had a CAT scan done, told to have some constipation. The patient also has an abdominal pain. The patient is taking laxatives with some benefit. The patient's symptoms got worse so came to the Emergency Room. Status post cholecystectomy. Patient does have slightly prominent common bile duct, had EUS done by Dr. Javed on 07/24/2017, she was found to have dilated CBD up to 8 mm . The patient also complaining of postprandial bloating and also abdominal pain. PAST MEDICAL HISTORY: Other past medical history significant for as above. History of asthma, polysubstance abuse, pancreatitis. PAST SURGICAL HISTORY: Include laparoscopic hysterectomy, x3. FAMILY HISTORY: Positive for father who has had a history of colon polyp, melanoma. SOCIAL HISTORY: Presently positive for smoking one pack per day for nearly 20 years. ETOH for nearly 20 years, stopped about 3 years ago. ALLERGIES: THE PATIENT IS ALLERGIC TO ESCITALOPRAM AND FISH. REVIEW OF SYSTEMS: Positive as above. Other systems are reviewed. PHYSICAL EXAMINATION: GENERAL: The patient is lying on the bed, not in acute distress. VITAL SIGNS: Temperature is 98.5, blood pressure is 108/80, pulse ox saturation is 88. HEENT: Atraumatic and anicteric. NECK: Supple. HEART: S1 and S2 heard. LUNGS: Bilateral air entry present. ABDOMEN: Soft. There is no mass palpable. The patient does have tenderness to the epigastric area. There is no rebound or guarding. patient has anaphylactic reaction to iodine contrast. IMPRESSION: This 32-year-old patient has abdominal pain. Etiology is unclear. The differential diagnosis include; 1. Gastroparesis in view of the history of use in the past. 2. Dilated common bile duct. 3. CT scan done before was reviewed. The patient did have three CAT scans done this year, which was all reviewed. IMPRESSION: This 32-year-old patient with history of chronic pain syndrome on narcotic pain medication, admitted with worsening of abdominal pain for seven days. The differential diagnosis should include gastroparesis, chronic pancreatitis, erosive esophagitis and peptic ulcer disease to be considered. The patient did have an EGD/EUS done by Dr. Javed, found to have a gastritis. There are no abnormalities in the common bile duct and also, the patient told to have . Would recommend; 1. Since the patient did have no proper imaging study for the pancreas done in especially patient with chronic abdominal pain, multiple admission, all the CT has been done with no IV or p.o. contrast. Patient does give some questionable history of allergic reaction or anaphylactic type of reaction to the contrast. With reasonable . Would recommend is; 1. We will recover the MRI of the abdomen with and without contrast to further evaluate the pancreas. 2. Patient would benefit from pureed type of food and also continue the proton pump inhibitor. 3. History of chronic constipation. Would benefit from Linzess or Amitiza for chronic constipation. I had a detailed discussion with the patient's hospitalist, Dr. Navarro. Followup recommendations has been in detailed discussed. We will continue to closely follow up her care and further management based on the clinical course. Stephania Pedraza MD
== END 2018-01-27 19:25 | disposition home or self-care (01) ==
LOC: ED 17:15 → ERH 20:57 → 5RSO 22:38 → INTOOBSV 01-26 14:05 → OBSVTOIN 01-26 14:05
PROVIDERS: ADMIT Internal Medicine; ATTEND Internal Medicine
DX: K59.03 Drug induced constipation (principal); T40.2X5A Adverse effect of other opioids, initial encounter; F41.9 Anxiety disorder, unspecified; F17.210 Nicotine dependence, cigarettes, uncomplicated; G89.4 Chronic pain syndrome; J44.9 Chronic obstructive pulmonary disease, unspecified; K21.9 Gastro-esophageal reflux disease without esophagitis; K29.60 Other gastritis without bleeding; K31.84 Gastroparesis; K58.9 Irritable bowel syndrome, unspecified; K83.8 Other specified diseases of biliary tract; K86.1 Other chronic pancreatitis; S40.819A Abrasion of unspecified upper arm, initial encounter; Z79.891 Long term (current) use of opiate analgesic; Z80.8 Family history of malignant neoplasm of other organs or systems; Z83.71 Family history of colonic polyps; Z85.820 Personal history of malignant melanoma of skin; Z87.11 Personal history of peptic ulcer disease; Z87.440 Personal history of urinary (tract) infections; Z87.892 Personal history of anaphylaxis; Z90.49 Acquired absence of other specified parts of digestive tract; Z90.710 Acquired absence of both cervix and uterus; Z98.51 Tubal ligation status; Z98.891 History of uterine scar from previous surgery
CPT/HCPCS: 36415; 74183; 80053; 80320; 80329; 81001; 82150; 83690; 83735; 84100; 84703; 85025; 87086; 96372; 96374; 96375; 96376; 99285; A9579; C9113; G0378; J1200; J1644; J1885; J7030; J7040

== ENCOUNTER 2018-02-22 14:42 | Emergency (ER) | payer MEDICAID ==
[2018-02-22 14:43] VITALS: BMI 26.6
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
[2018-02-22 15:29] VITALS: RESP 18; TEMP 98.5
[2018-02-22 15:38] LABS: PH,URINE 8.5 (4.7-8.0); URINE BILIRUBIN NEGATIVE (NEGATIVE); URINE BLOOD NEGATIVE (NEGATIVE); URINE GLUCOSE (UA) NEGATIVE (NEGATIVE); URINE LEUKOCYTE ESTERASE NEGATIVE Leu/uL (NEGATIVE); URINE PROTEIN TRACE mg/dL (<30 mg/dL); URINE UROBILINOGEN 0.2 E.U./dL (<1 E.U./dL)
[2018-02-22 15:39] LABS: URINE APPEARANCE CLEAR (CLEAR)
[2018-02-22 15:57] LABS: OPIATES, UR NEGATIVE (NEGATIVE)
[2018-02-22 16:11] LABS: BASO # 0.01 K/mm3 (0.0-2.0); BASO % 0.1 % (0.0-3.0); EOS # 0.2 (0.0-0.7); GRAN # 4.65 (1.4-6.5); LYMPH # 2.1 (1.2-3.4); LYMPH % 28.9 % (22.0-35.0); MEAN CORPUSCULAR HEMOGLOBIN 26.2 pg (25.0-35.0); MEAN CORPUSCULAR HGB CONC 33.2 g/dl (31.0-37.0); MEAN PLATELET VOLUME 10.1 fl (7.0-11.0); MONO # 0.4 (0.1-0.6); RBC 4.96 10^6/uL (3.5-6.1); RED CELL DISTRIBUTION WIDTH 15.4 % (11.5-14.5); WHITE BLOOD COUNT 7.4 10^3/ul (4.5-11.0)
[2018-02-22 16:20] LABS: BARBITURATES, UR NEGATIVE (NEGATIVE); BENZODIAZEPINES, UR NEGATIVE (NEGATIVE); PHENCYCLIDINE, UR NEGATIVE (NEGATIVE)
[2018-02-22 16:20] LABS: ALB/GLOB RATIO 1.4 (1.1-1.8); ALBUMIN 4.3 g/dL (3.0-4.8); ALT/SGPT 32 U/L (7-56); AST/SGOT 37 U/L (14-36); BLOOD UREA NITROGEN 6 mg/dL (7-21); CALCIUM 9.8 mg/dL (8.4-10.5); GFR NON-AFRICAN AMERICAN > 60
--- NOTE | 2018-02-22 17:10 | CT ---
Date of service: 02/22/2018 PROCEDURE: CT HEAD WITHOUT CONTRAST. HISTORY: seizure COMPARISON: 08/29/2017 TECHNIQUE: Axial computed tomography images were obtained through the head/brain without intravenous contrast. Supplemental Coronal and Sagittal projections created and reviewed. Radiation dose: Total exam DLP = 814.30 mGy-cm. This CT exam was performed using one or more of the following dose reduction techniques: Automated exposure control, adjustment of the mA and/or kV according to patient size, and/or use of iterative reconstruction technique. FINDINGS: HEMORRHAGE: No intracranial hemorrhage. BRAIN: No mass effect or edema. No atrophy or chronic microvascular ischemic changes. VENTRICLES: Unremarkable. No hydrocephalus. CALVARIUM: Unremarkable. PARANASAL SINUSES: Unremarkable as visualized. No significant inflammatory changes. MASTOID AIR CELLS: Unremarkable as visualized. No inflammatory changes. OTHER FINDINGS: None. IMPRESSION: No acute intracranial abnormalities. No significant findings to account for the clinical presentation. No significant interval change compared to the prior examination(s).
[2018-02-22 17:19] VITALS: BP 119/69; PULSE 75; O2SAT 95
--- NOTE | 2018-02-22 22:15 | CARD ---
APPROVED REPORT Date of service: 02/22/2018 EKG Measurement Heart [id number] <Conclusion> Normal sinus rhythm Normal ECG
== END 2018-02-22 18:00 | disposition home or self-care (01) ==
LOC: ED 14:42
DX: R56.9 Unspecified convulsions (principal); F17.210 Nicotine dependence, cigarettes, uncomplicated
CPT/HCPCS: 70450; 80053; 80320; 80324; 80345; 80346; 80349; 80353; 80358; 80361; 81001; 82948; 83735; 83992; 85025; 93005; 96374; 96375; 99285; J1885; J2405

== ENCOUNTER 2018-07-15 17:45 | Inpatient (IN) | payer MEDICAID, OTHER ==
[2018-07-15 17:48] VITALS: BMI 25.7
[2018-07-15] MEDS ORDERED: Sodium Chloride 0.9% 1,000 ML IV STA ×2 (18:06→22:12)
[2018-07-15] MEDS ORDERED: Morphine 4 mg/ml ISec IVP STA (18:06)
[2018-07-15 18:31] LABS: BASO # 0.03 K/mm3 (0.0-2.0); BASO % 0.5 % (0.0-3.0); EOS # 0.4 (0.0-0.7); EOS % 6.3 % (1.5-5.0); HEMOGLOBIN 12.7 g/dL (12.0-16.0); LYMPH # 2.3 (1.2-3.4); LYMPH % 39.2 % (22.0-35.0); MEAN CELL VOLUME 79.3 fl (80.0-105.0); MEAN CORPUSCULAR HEMOGLOBIN 26.6 pg (25.0-35.0); MEAN CORPUSCULAR HGB CONC 33.5 g/dl (31.0-37.0); MEAN PLATELET VOLUME 10.7 fl (7.0-11.0); MONO # 0.4 (0.1-0.6); MONO % 7.1 % (1.0-6.0); RBC 4.78 10^6/uL (3.5-6.1); RED CELL DISTRIBUTION WIDTH 17.9 % (11.5-14.5); WHITE BLOOD COUNT 5.8 10^3/uL (4.5-11.0)
[2018-07-15 18:50] LABS: ALB/GLOB RATIO 1.5 (1.1-1.8); ALBUMIN 4.6 g/dL (3.0-4.8); ALT/SGPT 10 U/L (7-56); AST/SGOT 29 U/L (14-36); BLOOD UREA NITROGEN 8 mg/dL (7-21); CALCIUM 9.3 mg/dL (8.4-10.5); GFR NON-AFRICAN AMERICAN > 60
[2018-07-15] MEDS ORDERED: Iohexol 350 MG/100 ML VIAL ONE (19:11)
[2018-07-15] MEDS ORDERED: Morphine 2 mg/ml ISec IVP STA (19:25)
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
[2018-07-15] MEDS ORDERED: DiphenhydrAMINE 50 mg/ml Inj IVP STA (20:34)
[2018-07-15] MEDS ORDERED: DiphenhydrAMINE 50 mg/ml Inj ONE (20:35)
[2018-07-15] MEDS ORDERED: Oxycodone/Acetaminophen 5/325 mg Tab PO PRN (22:39)
[2018-07-15] MEDS ORDERED: levETIRAcetam 1000mg/100ml NS 100 ML IVPB ONE (23:00)
[2018-07-15] MEDS ORDERED: Sodium Chloride 0.9% 500 ML IV ONE (23:12)
[2018-07-15] MEDS ORDERED: Sodium Chloride 0.9% 1,000 ML IV SCH (23:43)
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
[2018-07-16 00:51] LABS: URINE BILIRUBIN NEGATIVE (NEGATIVE); URINE BLOOD NEGATIVE (NEGATIVE); URINE GLUCOSE (UA) NEGATIVE (NEGATIVE); URINE LEUKOCYTE ESTERASE NEGATIVE Leu/uL (NEGATIVE); URINE PROTEIN NEGATIVE mg/dL (<30 mg/dL); URINE UROBILINOGEN 0.2 E.U./dL (<1 E.U./dL)
[2018-07-16 00:52] LABS: URINE APPEARANCE CLEAR (CLEAR); URINE COLOR YELLOW (YELLOW)
[2018-07-16] MEDS ORDERED: Sodium Chloride 0.9% 1,000 ML IV SCH (01:07)
[2018-07-16 01:19] LABS: PHENCYCLIDINE, UR NEGATIVE (NEGATIVE)
[2018-07-16 01:20] LABS: BARBITURATES, UR NEGATIVE (NEGATIVE); BENZODIAZEPINES, UR NEGATIVE (NEGATIVE); OPIATES, UR POSITIVE (NEGATIVE)
[2018-07-16 07:02] LABS: BASO # 0.01 K/mm3 (0.0-2.0); BASO % 0.2 % (0.0-3.0); EOS # 0.3 (0.0-0.7); EOS % 5.4 % (1.5-5.0); LYMPH # 2.9 (1.2-3.4); LYMPH % 56.2 % (22.0-35.0); MEAN CELL VOLUME 80.6 fl (80.0-105.0); MEAN CORPUSCULAR HEMOGLOBIN 26.5 pg (25.0-35.0); MEAN CORPUSCULAR HGB CONC 32.9 g/dl (31.0-37.0); MEAN PLATELET VOLUME 10.9 fl (7.0-11.0); MONO # 0.3 (0.1-0.6); MONO % 5.4 % (1.0-6.0); RBC 3.96 10^6/uL (3.5-6.1); RED CELL DISTRIBUTION WIDTH 18.1 % (11.5-14.5); WHITE BLOOD COUNT 5.1 10^3/uL (4.5-11.0)
[2018-07-16 07:17] LABS: HEMOGLOBIN 10.5 g/dL (12.0-16.0)
[2018-07-16 07:18] LABS: ALB/GLOB RATIO 1.4 (1.1-1.8); ALBUMIN 3.2 g/dL (3.0-4.8); ALT/SGPT 85 U/L (7-56); AST/SGOT 133 U/L (14-36); BLOOD UREA NITROGEN 6 mg/dL (7-21); CALCIUM 8.1 mg/dL (8.4-10.5); GFR NON-AFRICAN AMERICAN > 60; HDL CHOLESTEROL 24 mg/dL (29-60)
[2018-07-16 07:27] LABS: LDL CHOLESTEROL 70 mg/dL (0-129)
[2018-07-16] MEDS: Pantoprazole 40 mg EC Tab PO SCH (07:57)
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
[2018-07-16] MEDS ORDERED: oxyCODONE 10 mg Immediate Release Tab PO PRN (08:26)
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
[2018-07-16] MEDS ORDERED: Sodium Chloride 0.9% 1,000 ML IV STA (09:20)
[2018-07-16] MEDS: levETIRAcetam 500mg IVPB 500 MG/100 ML BAG IVPB SCH ×2 (09:39→22:03)
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
[2018-07-16 11:18] LABS: VENOUS BLOOD GAS BASE EXCESS -2.4 mmol/L (0.0-2.0); VENOUS BLOOD GAS PO2 192 mm/Hg (30-55); VENOUS BLOOD PH 7.33 (7.32-7.43)
[2018-07-16 11:21] LABS: HEMOGLOBIN 10.3 g/dL (12.0-16.0); MEAN CELL VOLUME 80.7 fl (80.0-105.0); MEAN CORPUSCULAR HEMOGLOBIN 26.5 pg (25.0-35.0); MEAN CORPUSCULAR HGB CONC 32.9 g/dl (31.0-37.0); MEAN PLATELET VOLUME 10.9 fl (7.0-11.0); RBC 3.88 10^6/uL (3.5-6.1); RED CELL DISTRIBUTION WIDTH 18.5 % (11.5-14.5)
[2018-07-16 11:29] LABS: INR 1.23; PARTIAL THROMBOPLASTIN TIME 34.6 Seconds (26.9-38.3); PROTHROMBIN TIME 13.9 SECONDS (9.4-12.5)
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
[2018-07-16] MEDS: Lactated Ringer's 1,000 ML IV SCH ×2 (12:33→22:05)
[2018-07-16] MEDS: VENLAFAXINE 50 MG PO SCH ×2 (12:34→18:52)
[2018-07-16] MEDS ORDERED: Lidocaine 5% Patch TD SCH (16:15)
--- NOTE | 2018-07-16 16:36 | PCM.EEG ---
Electroencephalogram Report - Electroencephalogram Report Procedure Date: 07/16/18 Medication: Clonazepam, Gabapentin, keppra Interpretation: Technical Information: This was a 16 -channel EEG, 1-channel EKG routine EEG performed using an [employer] machine. Electrodes were applied using the 10/20 international placement system. Start; 10; End; ;47 Total 46 min. Clinical Information: Epilepsy During resting wakefulness there was a symmetric posterior dominant rhythm at 8.5-9.5 Hz, 30-50 uV, which was reactive to eye opening and closing. Drowsiness (1;44) was associated with fragmentation of the posterior dominant rhythm and with slow roving eye movements. Hyperventilation was not performed. Photic stimulation was performed and there were no changes on the record. Focal abnormality; none ECG was associated with a normal sinus rhythm. Impression: This is a normal awake and drowsy electroencephalogram.
--- NOTE | 2018-07-16 17:17 | CARD ---
APPROVED REPORT Date of service: 07/16/2018 EKG Measurement Heart [id number] <Conclusion> Marked sinus bradycardia Abnormal ECG
--- NOTE | 2018-07-16 17:23 | CARD ---
APPROVED REPORT Date of service: 07/15/2018 EKG Measurement Heart [id number] <Conclusion> Marked sinus bradycardia Abnormal ECG
[2018-07-16] MEDS ORDERED: Menthol/Methyl Salicylate Ointment(1 oz) TOP PRN (18:24)
[2018-07-17] MEDS: Pantoprazole 40 mg EC Tab PO SCH (05:18)
[2018-07-17 07:10] LABS: BASO # 0.01 K/mm3 (0.0-2.0); BASO % 0.2 % (0.0-3.0); EOS # 0.3 (0.0-0.7); EOS % 4.4 % (1.5-5.0); HEMOGLOBIN 11.2 g/dL (12.0-16.0); LYMPH # 2.6 (1.2-3.4); LYMPH % 43.5 % (22.0-35.0); MEAN CELL VOLUME 80.5 fl (80.0-105.0); MEAN CORPUSCULAR HEMOGLOBIN 26.6 pg (25.0-35.0); MEAN PLATELET VOLUME 10.7 fl (7.0-11.0); MONO # 0.4 (0.1-0.6); MONO % 7.3 % (1.0-6.0); RBC 4.21 10^6/uL (3.5-6.1); RED CELL DISTRIBUTION WIDTH 18.5 % (11.5-14.5); WHITE BLOOD COUNT 5.9 10^3/uL (4.5-11.0)
--- NOTE | 2018-07-17 07:13 | CARD ---
APPROVED REPORT Date of service: 07/16/2018 EXAM: Two-dimensional and M-mode echocardiogram with Doppler and color Doppler. INDICATION BRADYCARDIA 2D DIMENSIONS Left Atrium (2D)3.5 (1.6-4.0cm)IVSd1.5 (0.7-1.1cm) LVDd4.1 (3.9-5.9cm)PWd1.2 (0.7-1.1cm) LVDs2.7 (2.5-4.0cm)FS (%) 34.5 % LVEF (%)64.0 (>50%) M-Mode DIMENSIONS Aortic Root2.50 (2.2-3.7cm)Aortic Cusp Exc.1.80 (1.5-2.0cm) Aortic Valve AoV Peak Yxthkddy755.0cm/Luther Peak GR.7mmHg Mitral Valve E/A ratio0.0 TDI E/Lateral E'0.0E/Medial E'0.0 Tricuspid Valve TR Peak [id number] [id number] Peak Gr.18mmHg [id number] LEFT VENTRICLE The left ventricle is normal size. There is mild concentric left ventricular hypertrophy. The left ventricular function is normal. The left ventricular ejection fraction is within the normal range. There is normal LV segmental wall motion. RIGHT VENTRICLE The right ventricle is normal size. The right ventricular systolic function is normal. ATRIA The left atrium size is normal. The right atrium size is normal. The interatrial septum is intact with no evidence for an atrial septal defect. AORTIC VALVE The aortic valve is normal in structure. No aortic regurgitation is present. There is no aortic valvular stenosis. MITRAL VALVE The mitral valve is normal in structure. There is no mitral valve regurgitation noted. TRICUSPID VALVE The tricuspid valve is normal in structure. There is mild tricuspid regurgitation. PULMONIC VALVE The pulmonary valve is normal in structure. GREAT VESSELS The aortic root is normal in size. The IVC is normal in size and collapses >50% with inspiration. PERICARDIAL EFFUSION There is no pleural effusion. There is no pericardial effusion. <Conclusion> Normal chamber size. Mild concentric LVH. Normal LV systolic function. Mild TR.
[2018-07-17 07:34] LABS: ALB/GLOB RATIO 1.4 (1.1-1.8); ALBUMIN 3.3 g/dL (3.0-4.8); ALT/SGPT 65 U/L (7-56); AST/SGOT 49 U/L (14-36); BLOOD UREA NITROGEN 5 mg/dL (7-21); CALCIUM 8.5 mg/dL (8.4-10.5); GFR NON-AFRICAN AMERICAN > 60
[2018-07-17] MEDS: levETIRAcetam 500mg IVPB 500 MG/100 ML BAG IVPB SCH ×2 (10:44→22:39)
--- NOTE | 2018-07-17 12:44 | MRI ---
Date of service: 07/17/2018 PROCEDURE: MRI BRAIN WITHOUT CONTRAST HISTORY: Seizure. COMPARISON: Comparison made with prior CT scan brain 311 19. TECHNIQUE: Multiplanar, multisequence MR images of the brain were obtained without intravenous contrast enhancement. FINDINGS: HEMORRHAGE: No acute parenchymal, subarachnoid nor extra-axial hemorrhage. No evidence of hemosiderin deposition identified on gradient echo weighted sequence DWI: No evidence of an acute or early subacute infarction seen on diffusion imaging.. BRAIN PARENCHYMA: No focal areas of abnormal signal seen within the substance of the brain. No evidence of parenchymal masses or collections seen on this noncontrast study. No evidence to suggest mesial temporal sclerosis No evidence of mass effect or edema. No signal chronic microvascular white matter ischemic changes. Ventricular and sulcal size within range of normal this patient's stated VENTRICLES: No obstructive hydrocephalus. CRANIUM: Unremarkable. ORBITS: Orbits and contents grossly unremarkable. PARANASAL SINUSES/MASTOIDS: Clear VASCULAR SYSTEM: Visualized major vascular flow voids at skull base patent. OTHER FINDINGS: None. IMPRESSION: No acute intracranial hemorrhage or infarction. No obvious parenchymal masses or collections seen on this noncontrast exam
--- NOTE | 2018-07-17 15:00 | CP.PCM.PN ---
Subjective - Date & Time of Evaluation Date of Evaluation: 07/17/18 Time of Evaluation: 13:30 - Subjective Subjective: Neuro Follow Up Note: Ms. Gibbs was evaluated this afternoon at bedside. She states that today she feels better. Still notices that her speech is normal; she is stuttering slightly but admits to verbal issues after her seizures. She denies any seizure activity since being admitted. Presently denies h/a, dizziness, visual changes, chest pain, palpitations, sob, cough, abd pain, n/v/d, paresthesias, fever/chills. Objective - Vital Signs/Intake and Output Vital Signs (last 24 hours): Temp Pulse Resp BP Pulse Ox 98.8 F 44 L 16 111/63 97 07/17/18 06:00 07/17/18 10:00 07/17/18 06:00 07/17/18 06:00 07/17/18 06:00 - Medications Medications: Current Medications Acetaminophen (Tylenol 325mg Tab) 650 mg PO Q6H PRN PRN Reason: Pain, Mild (1-3) Camphor/Menthol (Bengay) 0 gm TOP QID PRN PRN Reason: Pain, Mild (1-3) Clonazepam (Klonopin) 0.5 mg PO TID ABBI; Protocol Gabapentin (Neurontin) 300 mg PO TID ABBI; Protocol Last Admin: 07/17/18 13:57 Dose: 300 mg Levetiracetam (Keppra 500mg Ivpb) 500 mg in 100 mls @ 215 mls/hr IVPB Q12 ABBI Last Admin: 07/17/18 10:44 Dose: 215 mls/hr Ketorolac Tromethamine (Toradol) 30 mg IVP Q6 PRN PRN Reason: Pain, moderate (4-7) Last Admin: 07/17/18 11:58 Dose: 30 mg Lorazepam (Ativan) 1 mg IVP Q4H PRN; Protocol PRN Reason: Seizure activity Ondansetron HCl (Zofran Inj) 4 mg IVP Q6H PRN PRN Reason: Nausea/Vomiting Last Admin: 07/17/18 13:07 Dose: 4 mg Oxycodone HCl (Oxycodone Immediate Release Tab) 10 mg PO Q6H PRN PRN Reason: Pain, severe (8-10) Last Admin: 07/16/18 09:42 Dose: 10 mg Pantoprazole Sodium (Protonix Ec Tab) 40 mg PO 0600 [facility] Last Admin: 07/17/18 05:18 Dose: Not Given Venlafaxine HCl (Effexor) 37.5 mg PO BID [facility] Last Admin: 07/17/18 10:44 Dose: 37.5 mg - Labs Labs: 07/17/18 06:50 07/17/18 06:50 PT 13.9 SECONDS (9.4-12.5) H 07/16/18 11:00 INR 1.23 07/16/18 11:00 APTT 34.6 Seconds (26.9-38.3) 07/16/18 11:00 - Constitutional Appears: Well, Non-toxic, No Acute Distress - Head Exam Head Exam: ATRAUMATIC, NORMAL INSPECTION, NORMOCEPHALIC - Eye Exam Eye Exam: EOMI, Normal appearance, PERRL Pupil Exam: NORMAL ACCOMODATION, PERRL - ENT Exam ENT Exam: Mucous Membranes Moist - Neck Exam Neck Exam: Full ROM, Normal Inspection - Respiratory Exam Respiratory Exam: NORMAL BREATHING PATTERN - Extremities Exam Extremities Exam: Full ROM. absent: Calf Tenderness, Pedal Edema - Neurological Exam Neurological Exam: Alert, Awake, CN II-XII Intact, Normal Gait, Oriented x3, Reflexes Normal Neuro motor strength exam: Left Upper Extremity: 5, Right Upper Extremity: 5, Left Lower Extremity: 5, Right Lower Extremity: 5 Additional comments: Slight stutter in speech intermittently. Follows all commands. FROM to all extremities. No tremors; no abnormal movements noted. No sensory deficits. Gait observed to be steady. - Psychiatric Exam Psychiatric exam: Normal Affect, Normal Mood - Skin Skin Exam: Normal Color Assessment and Plan (1) Seizure Assessment & Plan: Imaging reviewed: -EEG (07/16/18): normal awake, asleep EEG -MRI Brain (07/17/18): No acute intracranial hemorrhage or infarction. No obvious parenchymal masses or collections seen on this noncontrast exam. -CT Head (07/16/18): No evidence of acute intracranial hemorrhage mass effect or midline shift. Mild ethmoid sinuses mucosal thickening. -Pt is neurologically stable for d/c home. -She has been instructed to f/u with her neurologist and psychiatrist within 1-2 weeks. -I spoke to her about Effexor and its lowering of the seizure threshold; she will discuss this with her doctor. -She has been informed that she cannot drive for now, for a minimum of 3 months per [place] state law. -Please provide her with Dr. Miranda's office information upon d/c in case she has any further questions/concerns. -Continue Keppra 500mg PO Q12 upon d/c; please provide rx. She is to also continue her Gabapentin 300 mg PO TID. -Notify neuro team of any change in pt's condition prior to d/c. Thank you for allowing us to participate in this pt's care. Oumou Perry DNP, STATISTICAL ASSISTANT Discussed with Dr. Miarnda Status: Acute
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
[2018-07-17 17:32] VITALS: RESP 18
[2018-07-17] MEDS ORDERED: DiphenhydrAMINE 50 mg/ml Inj IVP PRN (18:22)
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
[2018-07-18] MEDS: DiphenhydrAMINE 50 mg/ml Inj IVP ONE ×2 (01:01→09:38)
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
[2018-07-18] MEDS: Pantoprazole 40 mg EC Tab PO SCH (05:30)
[2018-07-18 07:33] LABS: BASO # 0.01 K/mm3 (0.0-2.0); BASO % 0.2 % (0.0-3.0); EOS # 0.3 (0.0-0.7); EOS % 5.2 % (1.5-5.0); HEMOGLOBIN 11.7 g/dL (12.0-16.0); LYMPH # 2.5 (1.2-3.4); LYMPH % 47.5 % (22.0-35.0); MEAN CELL VOLUME 79.5 fl (80.0-105.0); MEAN CORPUSCULAR HEMOGLOBIN 26.1 pg (25.0-35.0); MEAN CORPUSCULAR HGB CONC 32.9 g/dl (31.0-37.0); MEAN PLATELET VOLUME 10.6 fl (7.0-11.0); MONO # 0.4 (0.1-0.6); MONO % 7.7 % (1.0-6.0); RBC 4.48 10^6/uL (3.5-6.1); RED CELL DISTRIBUTION WIDTH 18.4 % (11.5-14.5); WHITE BLOOD COUNT 5.2 10^3/uL (4.5-11.0)
[2018-07-18 07:47] LABS: ALB/GLOB RATIO 1.5 (1.1-1.8); ALBUMIN 3.8 g/dL (3.0-4.8); ALT/SGPT 54 U/L (7-56); AST/SGOT 40 U/L (14-36); BLOOD UREA NITROGEN 5 mg/dL (7-21); GFR NON-AFRICAN AMERICAN > 60
[2018-07-18 08:38] VITALS: BP 128/72; PULSE 44; TEMP 98.9; O2SAT 99
[2018-07-18] MEDS ORDERED: DiphenhydrAMINE 50 mg/ml Inj IVP STA (09:30)
[2018-07-18] MEDS ORDERED: Albuterol-Ipratrop 3 mg / 0.5 (3 ml) UD IH STA (09:36)
[2018-07-18] MEDS ORDERED: Albuterol-Ipratrop 3 mg / 0.5 (3 ml) UD IH PRN (09:37)
[2018-07-18] MEDS: levETIRAcetam 500mg IVPB 500 MG/100 ML BAG IVPB SCH (09:49)
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
== END 2018-07-18 17:41 | disposition home or self-care (01) | DRG 101 ==
LOC: ED 17:45 → ERH 21:52 → 3RSO 23:12 → OBSVTOIN 07-16 16:12
PROVIDERS: ADMIT Hospitalist; ATTEND Internal Medicine
DX: G40.409 Other generalized epilepsy and epileptic syndromes, not intractable, without status epilepticus (principal); F12.90 Cannabis use, unspecified, uncomplicated; F17.210 Nicotine dependence, cigarettes, uncomplicated; F41.0 Panic disorder [episodic paroxysmal anxiety]; G89.29 Other chronic pain; Z82.49 Family history of ischemic heart disease and other diseases of the circulatory system; J44.9 Chronic obstructive pulmonary disease, unspecified; K21.9 Gastro-esophageal reflux disease without esophagitis; K52.9 Noninfective gastroenteritis and colitis, unspecified; K58.9 Irritable bowel syndrome, unspecified; M40.50 Lordosis, unspecified, site unspecified; R32 Unspecified urinary incontinence; V47.5XXA Car driver injured in collision with fixed or stationary object in traffic accident, initial encounter; Y92.410 Unspecified street and highway as the place of occurrence of the external cause; Z79.899 Other long term (current) drug therapy; Z87.440 Personal history of urinary (tract) infections; Z90.49 Acquired absence of other specified parts of digestive tract; Z98.51 Tubal ligation status; Z98.891 History of uterine scar from previous surgery; Z87.19 Personal history of other diseases of the digestive system; Z87.09 Personal history of other diseases of the respiratory system; Z88.8 Allergy status to other drugs, medicaments and biological substances; Z91.013 Allergy to seafood; Z87.892 Personal history of anaphylaxis; I95.9 Hypotension, unspecified; M54.2 Cervicalgia; R00.1 Bradycardia, unspecified

== ENCOUNTER 2018-07-26 18:27 | Emergency (ER) | payer SELFPAY ==
[2018-07-26 18:40] VITALS: BMI 25.6
[2018-07-26 18:52] VITALS: BP 118/76; PULSE 77; RESP 18; TEMP 98.7; O2SAT 99
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
--- NOTE | 2018-07-26 22:02 | ED PDOC ---
Physical Exam Vital Signs Temp Pulse Resp BP Pulse Ox 07/26/18 18:45 98.7 F 77 18 118/76 99 Medical Decision Making ED Course and Treatment: 07/26/18 23:43 patient feels well and ready to go home. patient feels she is strong and well enough to function, no recurrence of seizures in the ED. patient is able to follow up with her pcp for further medication management. patient will also need to follow up with neurology as she needs to follow through with her insurance referral pattern. patient discharged in stable condition. - RAD Interpretation Narrative RAD Interpretations (Text): 07/26/18 22:04 CT Head IMPRESSION: No acute intracranial abnormality. Electronically signed on Jul 26, 2018 9:55:11 PM EDT by: Tushar Mccoy M.D., MICHAEL Certified By [facility] Fellowship Trained MRI and CT Specialist Radiology Orders: 07/26/18 20:07 HEAD W/O CONTRAST [CT] Stat Log Clerk: Radiologist - Medication Orders Current Medication Orders: Discontinued Medications Acetaminophen (Tylenol 325mg Tab) 975 mg PO STAT STA Stop: 07/26/18 20:54 Disposition/Present on Arrival - Present on Arrival Any Indicators Present on Arrival: No History of DVT/PE: No History of Uncontrolled Diabetes: No Urinary Catheter: No History of Decub. Ulcer: No History Surgical Site Infection Following: None - Disposition Have Diagnosis and Disposition been Completed?: Yes Diagnosis: Breakthrough seizure Disposition: HOME/ ROUTINE Disposition Time: 23:44 Patient Plan: Discharge Condition: STABLE Discharge Instructions (ExitCare): Seizures, Adult (DC) Additional Instructions: return for any new or worsening symptoms. follow up your primary care doctor as soon as possible. Referrals: Trice Lechuga MD [Staff Provider] - Follow up with primary [facility] [Outside] - Follow up with primary Forms: [employer] (Nepalese)
[2018-07-26 22:05] LABS: BASO # 0.03 K/mm3 (0.0-2.0); BASO % 0.4 % (0.0-3.0); EOS # 0.2 (0.0-0.7); EOS % 2.4 % (1.5-5.0); HEMOGLOBIN 13.2 g/dL (12.0-16.0); LYMPH # 3.8 (1.2-3.4); LYMPH % 51.5 % (22.0-35.0); MEAN CELL VOLUME 81.1 fl (80.0-105.0); MEAN CORPUSCULAR HEMOGLOBIN 27.1 pg (25.0-35.0); MEAN CORPUSCULAR HGB CONC 33.4 g/dl (31.0-37.0); MEAN PLATELET VOLUME 10.9 fl (7.0-11.0); MONO # 0.6 (0.1-0.6); MONO % 7.7 % (1.0-6.0); RBC 4.87 10^6/uL (3.5-6.1); WHITE BLOOD COUNT 7.4 10^3/uL (4.5-11.0)
[2018-07-26 22:23] LABS: ALB/GLOB RATIO 1.5 (1.1-1.8); ALBUMIN 4.5 g/dL (3.0-4.8); ALT/SGPT 18 U/L (7-56); AST/SGOT 15 U/L (14-36); BLOOD UREA NITROGEN 18 mg/dL (7-21); CALCIUM 9.5 mg/dL (8.4-10.5); GFR NON-AFRICAN AMERICAN > 60; LIPASE 29 U/L (23-300)
[2018-07-26 22:23] LABS: BARBITURATES, UR NEGATIVE (NEGATIVE); BENZODIAZEPINES, UR NEGATIVE (NEGATIVE); OPIATES, UR NEGATIVE (NEGATIVE); PHENCYCLIDINE, UR NEGATIVE (NEGATIVE)
[2018-07-26] MEDS ORDERED: DiphenhydrAMINE 50 mg/ml Inj IVP STA (22:25)
--- NOTE | 2018-07-27 09:12 | CT ---
Date of service: 07/26/2018 PROCEDURE: CT HEAD WITHOUT CONTRAST. HISTORY: s/p seizure - r/o ICH and fx COMPARISON: 07/15/2018 TECHNIQUE: Axial computed tomography images were obtained through the head/brain without intravenous contrast. Radiation dose: Total exam DLP = 1014.69 mGy-cm. This CT exam was performed using one or more of the following dose reduction techniques: Automated exposure control, adjustment of the mA and/or kV according to patient size, and/or use of iterative reconstruction technique. FINDINGS: HEMORRHAGE: No intracranial hemorrhage. BRAIN: Paulino-white matter differentiation is preserved. There is no mass, mass effect or abnormal extra-axial fluid collection. There is no territorial infarction. The midline sagittal structures are normal. VENTRICLES: The ventricles are normal in size, shape and configuration. CALVARIUM: There is no calvarial fracture or extracranial soft tissue swelling. PARANASAL SINUSES: Predominantly clear. MASTOID AIR CELLS: Predominantly clear. OTHER FINDINGS: None. IMPRESSION: No acute intracranial abnormality. A preliminary report was provided by [employer].
== END 2018-07-27 00:01 | disposition home or self-care (01) ==
LOC: ED 18:27
DX: R56.9 Unspecified convulsions (principal); F17.210 Nicotine dependence, cigarettes, uncomplicated; J44.9 Chronic obstructive pulmonary disease, unspecified
CPT/HCPCS: 70450; 80053; 81025; 82550; 83690; 83735; 85025; 96374; 99285; G0480; J1885

== ENCOUNTER 2018-08-02 03:48 | Inpatient (IN) | payer OTHER ==
[2018-08-02 03:58] VITALS: BMI 25.7
[2018-08-02 04:34] LABS: HEMOGLOBIN 11.7 g/dL (12.0-16.0); MEAN CELL VOLUME 81.4 fl (80.0-105.0); MEAN CORPUSCULAR HEMOGLOBIN 27.5 pg (25.0-35.0); MEAN CORPUSCULAR HGB CONC 33.8 g/dl (31.0-37.0); MEAN PLATELET VOLUME 10.8 fl (7.0-11.0); RBC 4.25 10^6/uL (3.5-6.1); RED CELL DISTRIBUTION WIDTH 17.8 % (11.5-14.5); WHITE BLOOD COUNT 8.6 10^3/uL (4.5-11.0)
[2018-08-02] MEDS: Sodium Chloride 0.9% 1,000 ML IV SCH ×2 (04:40→11:15)
[2018-08-02] MEDS ORDERED: Morphine 2 mg/ml ISec IVP STA (04:49)
[2018-08-02] MEDS ORDERED: DiphenhydrAMINE 50 mg/ml Inj IVP ONE ×2 (04:58→05:23)
[2018-08-02] MEDS ORDERED: DiphenhydrAMINE 50 mg/ml Inj ONE (05:00)
[2018-08-02 05:04] LABS: PHENCYCLIDINE, UR NEGATIVE (NEGATIVE)
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
[2018-08-02 05:32] LABS: BARBITURATES, UR NEGATIVE (NEGATIVE); BENZODIAZEPINES, UR POSITIVE (NEGATIVE); OPIATES, UR NEGATIVE (NEGATIVE)
[2018-08-02 05:32] LABS: ALB/GLOB RATIO 1.5 (1.1-1.8); ALBUMIN 4.1 g/dL (3.0-4.8); ALT/SGPT 23 U/L (7-56); AST/SGOT 34 U/L (14-36); BLOOD UREA NITROGEN 9 mg/dL (7-21); CALCIUM 8.7 mg/dL (8.4-10.5); GFR NON-AFRICAN AMERICAN > 60
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
[2018-08-02 07:08] LABS: VENOUS BLOOD GAS BASE EXCESS -2.4 mmol/L (0.0-2.0); VENOUS BLOOD GAS PO2 37 mm/Hg (30-55)
[2018-08-02] MEDS ORDERED: Albuterol 0.042% Inhal Sol (1.25 mg/3 mL) UD IH PRN (08:00)
--- NOTE | 2018-08-02 08:15 | CT ---
Date of service: 08/02/2018 PROCEDURE: CT HEAD WITHOUT CONTRAST. HISTORY: seizures COMPARISON: Noncontrast head CT performed 322 TECHNIQUE: Axial computed tomography images were obtained through the head/brain without intravenous contrast. Radiation dose: Total exam DLP = 879.86 mGy-cm. This CT exam was performed using one or more of the following dose reduction techniques: Automated exposure control, adjustment of the mA and/or kV according to patient size, and/or use of iterative reconstruction technique. FINDINGS: HEMORRHAGE: No intracranial hemorrhage. BRAIN: No mass effect or edema. No atrophy or chronic microvascular ischemic changes. VENTRICLES: No hydrocephalus. CALVARIUM: Unremarkable. PARANASAL SINUSES: Unremarkable as visualized. No significant inflammatory changes. MASTOID AIR CELLS: Unremarkable as visualized. No inflammatory changes. OTHER FINDINGS: None. IMPRESSION: No acute intracranial pathology identified. Preliminary impression was provided by [facility].
[2018-08-02 09:34] LABS: ALB/GLOB RATIO 1.5 (1.1-1.8); ALBUMIN 3.9 g/dL (3.0-4.8); ALT/SGPT 25 U/L (7-56); AST/SGOT 35 U/L (14-36); BLOOD UREA NITROGEN 8 mg/dL (7-21); CALCIUM 8.4 mg/dL (8.4-10.5); GFR NON-AFRICAN AMERICAN > 60
[2018-08-02] MEDS ORDERED: NALOXONE HCL SL SCH ×2 (10:00→15:29)
[2018-08-02] MEDS ORDERED: BUPRENORPHINE HCL SL SCH ×2 (10:00→15:29)
[2018-08-02] MEDS: Pantoprazole 40 mg EC Tab PO SCH (11:14)
[2018-08-02] MEDS ORDERED: Charcoal 50 gm/240 ml Susp PO ONE (13:56)
[2018-08-02] MEDS ORDERED: PHENYTOIN IVPB STA (14:15)
[2018-08-02] MEDS ORDERED: SODIUM CHLORIDE 0.9% IVPB STA (14:15)
--- NOTE | 2018-08-02 15:32 | PCM.RRT ---
<Sebastián Jon - Last Filed: 08/02/18 16:01> ADVERTISING COORDINATOR Nurse Assessment - Situation Date: 08/02/18 Time ADVERTISING COORDINATOR was called: 13:46 ADVERTISING COORDINATOR Responder Arrival Time: 13:47 ADVERTISING COORDINATOR Location:: [address] [place] [address] Room Number: 261-2 ADVERTISING COORDINATOR Reason for Call: Not Responding to Urgent Treatment ADVERTISING COORDINATOR Called By: RN - IV IV Inserted during ADVERTISING COORDINATOR?: Yes - Respiratory Oxygen Delivery Method: Nasal Cannula @L/min Oxygen Flow Rate: 2 Secretions Suctioned?: No Was the Patient Intubated?: No Was the Patient Placed on a Ventilator?: No - Diagnostic Test Ordered CT Scan: Yes CPR started during ADVERTISING COORDINATOR?: No - Vital Signs Vital Sign: Rapid Response Vital Sign Blood Pressure 105/70 Pulse Rate 62 Respiratory Rate 16 Temperature 97.9 F Oxygen Saturation 97 - Finger Stick Blood Glucose Finger Stick Blood Glucose: 110 - Time ADVERTISING COORDINATOR Ended Time ADVERTISING COORDINATOR Ended: 14:08 - Vital Signs at end of ADVERTISING COORDINATOR Vital Signs at end of ADVERTISING COORDINATOR: Rapid Response End Vital Sign Blood Pressure 99/62 Pulse Rate 68 Respiratory Rate 16 Temperature 98.1 F O2 Sat by Pulse Oximetry 98 - Recommendations Notifications: Attending Physician I.Reason for ADVERTISING COORDINATOR - A) Acute Change in Patient: Subjective: Patient was about to AMA, then was seen taking a handful of klonopin and subsequently passing out. Fall was witnessed by patients mother who states she tried catching the patient but couldn't. Patient fell to the ground hitting her head. Patient was brought back to her bed. She was initially not arousable however began speaking with slurred speech. Patient was evaluated by burling and joining supervisor who recommended administering charcoal/sorbitol to induce vomiting. Plan CT head Charcoal/Sorbitol Dilantin IV Toradol for pain relief Seizure precautions Neurochecks q1 hour 1:1 Psych consult for suicide attempt Left shoulder X-ray - Respiratory Oxygen Delivery Method: Nasal Cannula @L/min Oxygen Flow Rate: 2 - Constitutional Appears: Toxic - Head Head Exam: ATRAUMATIC - Eyes Eye Exam: EOMI, Normal appearance - Respiratory Exam Respiratory Exam: Clear to Ausculation Bilateral, NORMAL BREATHING PATTERN - Cardiovascular Exam Cardiovascular Exam: REGULAR RHYTHM, +S1, +S2 - GI/Abdominal Exam GI & Abdominal Exam: Soft, Normal Bowel Sounds - Neurological Exam Neurological Exam: Awake. absent: Oriented x3 - Extremities Exam Additional comments: Right hip cut rhodes, Left shoulder tenderness <MadisonJose M plaza A - Last Filed: 08/02/18 17:05> ADVERTISING COORDINATOR Nurse Assessment - Vital Signs Vital Sign: Rapid Response Vital Sign Blood Pressure 105/70 Pulse Rate 62 Respiratory Rate 16 Temperature 97.9 F Oxygen Saturation 97 - Vital Signs at end of ADVERTISING COORDINATOR Vital Signs at end of ADVERTISING COORDINATOR: Rapid Response End Vital Sign Blood Pressure 99/62 Pulse Rate 68 Respiratory Rate 16 Temperature 98.1 F O2 Sat by Pulse Oximetry 98 Attending/Attestation - Attestation I have personally seen and examined this patient.: Yes I have fully participated in the care of the patient.: Yes I have reviewed all pertinent clinical information, including history, physical exam and plan: Yes
[2018-08-02 15:44] LABS: BASO # 0.02 K/mm3 (0.0-2.0); BASO % 0.3 % (0.0-3.0); EOS # 0.3 (0.0-0.7); EOS % 5.6 % (1.5-5.0); LYMPH % 49.8 % (22.0-35.0); MEAN CELL VOLUME 82.2 fl (80.0-105.0); MEAN CORPUSCULAR HEMOGLOBIN 27.6 pg (25.0-35.0); MEAN CORPUSCULAR HGB CONC 33.6 g/dl (31.0-37.0); MEAN PLATELET VOLUME 10.7 fl (7.0-11.0); MONO # 0.5 (0.1-0.6); MONO % 8.8 % (1.0-6.0); RBC 3.98 10^6/uL (3.5-6.1)
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
[2018-08-02 16:02] LABS: ALB/GLOB RATIO 1.2 (1.1-1.8); ALBUMIN 3.3 g/dL (3.0-4.8); ALT/SGPT 26 U/L (7-56); AST/SGOT 33 U/L (14-36); BLOOD UREA NITROGEN 8 mg/dL (7-21); CALCIUM 8.2 mg/dL (8.4-10.5); GFR NON-AFRICAN AMERICAN > 60
--- NOTE | 2018-08-02 20:50 | CARD ---
APPROVED REPORT Date of service: 08/02/2018 EKG Measurement Heart [id number] <Conclusion> Normal sinus rhythm Normal ECG
[2018-08-02] MEDS ORDERED: DiphenhydrAMINE 1% 1 EA TUBE TOP PRN (21:13)
[2018-08-02] MEDS: Phenytoin 100 mg/2 ml Inj IVP SCH (21:57)
--- NOTE | 2018-08-02 23:50 | CP.PCM.PN ---
Subjective - Date & Time of Evaluation Date of Evaluation: 08/02/18 Time of Evaluation: 23:49 - Subjective Subjective: , mother of patient requsted a benadryl for sleep for her daughter. Rx, Benadryl 25 mg PO x 1. Objective - Vital Signs/Intake and Output Vital Signs (last 24 hours): Temp Pulse Resp BP Pulse Ox 98.4 F 92 H 19 115/60 100 08/02/18 18:00 08/02/18 22:00 08/02/18 18:00 08/02/18 18:00 08/02/18 06:20 - Medications Medications: Current Medications Albuterol Sulfate (Albuterol 0.042% Inhal Vanessa (1.25mg/3ml) Ud) 1.25 mg IH [id number] PRN PRN Reason: Wheezing Clonazepam (Klonopin) 0.25 mg PO Q6 [facility]; Protocol Last Admin: 08/02/18 18:05 Dose: 0.25 mg Diphenhydramine HCl (Benadryl Maximum Strength 1%) 1 ea TOP Q6H PRN PRN Reason: Itching / Pruritus Gabapentin (Neurontin) 600 mg PO QID [facility]; Protocol Last Admin: 08/02/18 21:57 Dose: 600 mg Ketorolac Tromethamine (Toradol) 15 mg IVP Q3 PRN PRN Reason: Pain, severe (8-10) Lorazepam (Ativan) 0.5 mg IVP Q6H PRN; Protocol PRN Reason: Seizure activity Buprenorphine Hcl/Naloxone Hcl [ Buprenorphin-Naloxon 8-2 Mg Sl] (Home Med) 1 each SL DAILY [facility] Pantoprazole Sodium (Protonix Ec Tab) 40 mg PO 0600 [facility] Last Admin: 08/02/18 11:14 Dose: 40 mg Phenytoin (Dilantin) 100 mg IVP Q8 [facility] Last Admin: 08/02/18 21:57 Dose: 100 mg Venlafaxine HCl (Effexor) 37.5 mg PO BID [facility] Last Admin: 08/02/18 11:14 Dose: 37.5 mg - Labs Labs: 08/02/18 15:30 08/02/18 15:30
[2018-08-03] MEDS: Pantoprazole 40 mg EC Tab PO SCH (06:27)
[2018-08-03] MEDS: Phenytoin 100 mg/2 ml Inj IVP SCH ×4 (06:27→22:06)
[2018-08-03 07:05] LABS: BASO # 0.02 K/mm3 (0.0-2.0); BASO % 0.3 % (0.0-3.0); EOS # 0.3 (0.0-0.7); EOS % 4.9 % (1.5-5.0); HEMOGLOBIN 11.6 g/dL (12.0-16.0); LYMPH # 2.7 (1.2-3.4); LYMPH % 38.3 % (22.0-35.0); MEAN CELL VOLUME 82.2 fl (80.0-105.0); MEAN CORPUSCULAR HEMOGLOBIN 27.6 pg (25.0-35.0); MEAN CORPUSCULAR HGB CONC 33.5 g/dl (31.0-37.0); MEAN PLATELET VOLUME 11.1 fl (7.0-11.0); MONO # 0.6 (0.1-0.6); MONO % 8.9 % (1.0-6.0); RBC 4.21 10^6/uL (3.5-6.1)
[2018-08-03 07:15] LABS: ALB/GLOB RATIO 1.4 (1.1-1.8); ALBUMIN 3.6 g/dL (3.0-4.8); ALT/SGPT 22 U/L (7-56); AST/SGOT 28 U/L (14-36); BLOOD UREA NITROGEN 6 mg/dL (7-21); CALCIUM 8.6 mg/dL (8.4-10.5); GFR NON-AFRICAN AMERICAN > 60
[2018-08-03 08:27] LABS: BARBITURATES, UR NEGATIVE (NEGATIVE); OPIATES, UR NEGATIVE (NEGATIVE)
[2018-08-03 08:31] LABS: BENZODIAZEPINES, UR POSITIVE (NEGATIVE); PHENCYCLIDINE, UR NEGATIVE (NEGATIVE)
--- NOTE | 2018-08-03 09:11 | CT ---
Date of service: 08/02/2018 PROCEDURE: CT HEAD WITHOUT CONTRAST. HISTORY: s/p fall COMPARISON: 08/02/2018 TECHNIQUE: Axial computed tomography images were obtained through the head/brain without intravenous contrast. Radiation dose: Total exam DLP = 872.25 mGy-cm. This CT exam was performed using one or more of the following dose reduction techniques: Automated exposure control, adjustment of the mA and/or kV according to patient size, and/or use of iterative reconstruction technique. FINDINGS: HEMORRHAGE: No intracranial hemorrhage. BRAIN: No mass effect or edema. No atrophy or chronic microvascular ischemic changes. VENTRICLES: Unremarkable. No hydrocephalus. CALVARIUM: Unremarkable. PARANASAL SINUSES: Unremarkable as visualized. No significant inflammatory changes. MASTOID AIR CELLS: Unremarkable as visualized. No inflammatory changes. OTHER FINDINGS: The report concurs with the preliminary [facility] report IMPRESSION: Normal CT of the Head.
--- NOTE | 2018-08-03 14:39 | CP.PCM.PN ---
<Kamlesh Hadley - Last Filed: 08/03/18 14:33> Subjective - Date & Time of Evaluation Date of Evaluation: 08/03/18 Time of Evaluation: 08:00 - Subjective Subjective: Kamlesh Hadley, PGY1 Medicine Progress Note for Dr. Wallace Patient was seen and examined at bedside this morning. Patient's mother requested a benadryl for the patient at night for sleep. Patient more alert and awake this morning. She said she has some malodorous urine but denies urinary frequency, urgency, dysuria. She denies dizziness, headache, cp, sob, n/v/d. Patient did not remember the entire medical team being present during interview from the previous day. 1:1 nurse is present for observation given her CURRICULUM DEVELOPMENT COORDINATOR yesterday for klonopin ingestion with associated fall. A full 12 point ROS was conducted and unremarkable except as stated above. Objective - Vital Signs/Intake and Output Vital Signs (last 24 hours): Temp Pulse Resp BP Pulse Ox 98.3 F 67 18 103/67 96 08/03/18 12:00 08/03/18 12:00 08/03/18 12:00 08/03/18 12:00 08/03/18 06:00 Intake and Output: 08/03/18 08/03/18 06:59 18:59 Intake Total 240 Output Total 0 Balance 240 - Medications Medications: Current Medications Albuterol Sulfate (Albuterol 0.042% Inhal Vanessa (1.25mg/3ml) Ud) 1.25 mg IH [id number] PRN PRN Reason: Wheezing Clonazepam (Klonopin) 0.5 mg PO QID [facility]; Protocol Last Admin: 08/03/18 13:41 Dose: 0.5 mg Diphenhydramine HCl (Benadryl Maximum Strength 1%) 1 ea TOP Q6H PRN PRN Reason: Itching / Pruritus Diphenhydramine HCl (Benadryl) 25 mg PO HS [facility] Gabapentin (Neurontin) 600 mg PO QID [facility]; Protocol Last Admin: 08/03/18 13:53 Dose: 600 mg Ibuprofen (Motrin Tab) 400 mg PO Q6H PRN PRN Reason: Pain, moderate (4-7) Lorazepam (Ativan) 0.5 mg IVP Q6H PRN; Protocol PRN Reason: Seizure activity Non-Formulary Medication (Buprenorphine Hcl/Naloxone Hcl [Buprenorphin-Naloxon 8-2 Mg Sl]) 1 each SL DAILY [facility] Pantoprazole Sodium (Protonix Ec Tab) 40 mg PO 0600 [facility] Last Admin: 08/03/18 06:27 Dose: 40 mg Phenytoin (Dilantin) 100 mg IVP Q8 [facility] Last Admin: 08/03/18 13:42 Dose: 100 mg Venlafaxine HCl (Effexor) 37.5 mg PO BID [facility] Last Admin: 08/02/18 11:14 Dose: 37.5 mg - Labs Labs: 08/03/18 06:00 08/03/18 06:00 - Constitutional Appears: No Acute Distress Additional comments: - Head Exam Head Exam: ATRAUMATIC, NORMOCEPHALIC - Eye Exam Eye Exam: EOMI, Normal appearance - ENT Exam ENT Exam: Mucous Membranes Moist - Respiratory Exam Respiratory Exam: Clear to Auscultation Bilateral, NORMAL BREATHING PATTERN. absent: Rales, Rhonchi, Wheezes - Cardiovascular Exam Cardiovascular Exam: REGULAR RHYTHM, +S1, +S2 - GI/Abdominal Exam GI & Abdominal Exam: Normal Bowel Sounds, Soft. absent: Tenderness. No suprapubic tenderness. - Extremities Exam Extremities exam: Positive for: normal inspection. Negative for: pedal edema, tenderness - Neurological Exam Neurological exam: Alert, CN II-XII Intact, Oriented x3 Additional comments: Motor strength 5/5 throughout, sensation fully intact. - Psychiatric Exam Psychiatric exam: Normal Affect, Normal Mood. - Skin Skin Exam: Dry, Intact, Normal Color, Warm Assessment and Plan - Assessment and Plan (Free Text) Assessment: Patient is a 33 y/o F with PMHx seizures, asthma, pancreatitis, and EtOH/polysubstance abuse who presented for seizure likely 2/2 substance abuse vs effexor use. Patient had CURRICULUM DEVELOPMENT COORDINATOR for intentional overdose of klonopin. She is being monitored on telemetry. Plan: Seizures - likely 2/2 substance abuse vs Effexor use - monitor on Telemetry - continue with 1:1 given CURRICULUM DEVELOPMENT COORDINATOR on 08/02 (overdose on klonopin; see full CURRICULUM DEVELOPMENT COORDINATOR r eport); poison control contacted. As per neuro, held effexor/klonopin, dilantin ordered, gabapentin increased. - Psych on consult given incidental overdose (Dr. Merida) - CT Head (s/p CURRICULUM DEVELOPMENT COORDINATOR): normal study - CT head: negative - Neurology on consult (Dr. Miranda), recs appreciated. - c/w Ativan 0.5 mg IV Q6 prn seizures - c/w Seizure precautions, fall precautions - Fall risk Chronic Back Pain - motrin 400mg PO q6 prn - discontinued toradol given risk of kidney injury - avoid narcotics and drugs that worsen seizure threshold such as tramadol Malodorous urine - urine analysis - urine cx - no urinary frequency, urgency, dysuria History Alcohol, Opioid Dependence - Suboxone 8/2mg 1/4 tablet daily Asthma - c/w Albuterol 1.25 mg IH Q6 prn GERD - c/w Protonix 40 mg PO daily PPx -SCDs -PTX -Regular diet Dispo: Monitor patient on telemetry. Continue 1:1 at this time. Follow psych and further neuro recs. Patient switched to inpatient status. Case was discussed and reviewed with Attending Physician, Dr. Wallace. <Jose M Wallace - Last Filed: 08/03/18 15:29> Objective - Vital Signs/Intake and Output Vital Signs (last 24 hours): Temp Pulse Resp BP Pulse Ox 98.3 F 67 18 103/67 96 08/03/18 12:00 08/03/18 12:00 08/03/18 12:00 08/03/18 12:00 08/03/18 06:00 Intake and Output: 08/03/18 08/03/18 06:59 18:59 Intake Total 240 Output Total 0 Balance 240 - Medications Medications: Current Medications Albuterol Sulfate (Albuterol 0.042% Inhal Vanessa (1.25mg/3ml) Ud) 1.25 mg IH [id number] PRN PRN Reason: Wheezing Clonazepam (Klonopin) 0.5 mg PO QID [facility]; Protocol Last Admin: 08/03/18 13:41 Dose: 0.5 mg Diphenhydramine HCl (Benadryl Maximum Strength 1%) 1 ea TOP Q6H PRN PRN Reason: Itching / Pruritus Diphenhydramine HCl (Benadryl) 25 mg PO HS [facility] Gabapentin (Neurontin) 600 mg PO QID [facility]; Protocol Last Admin: 08/03/18 13:53 Dose: 600 mg Ibuprofen (Motrin Tab) 400 mg PO Q6H PRN PRN Reason: Pain, moderate (4-7) Lorazepam (Ativan) 0.5 mg IVP Q6H PRN; Protocol PRN Reason: Seizure activity Non-Formulary Medication (Buprenorphine Hcl/Naloxone Hcl [Buprenorphin-Naloxon 8-2 Mg Sl]) 1 each SL DAILY [facility] Pantoprazole Sodium (Protonix Ec Tab) 40 mg PO 0600 [facility] Last Admin: 08/03/18 06:27 Dose: 40 mg Phenytoin (Dilantin) 100 mg IVP Q8 [facility] Last Admin: 08/03/18 13:42 Dose: 100 mg Venlafaxine HCl (Effexor) 37.5 mg PO BID [facility] Last Admin: 08/02/18 11:14 Dose: 37.5 mg - Labs Labs: 08/03/18 06:00 08/03/18 06:00 Attending/Attestation - Attestation I have personally seen and examined this patient.: Yes I have fully participated in the care of the patient.: Yes I have reviewed all pertinent clinical information, including history, physical exam and plan: Yes Notes (Text): 08/03/18 15:24 33 year old female with past medical history of seizures, alcohol abuse and polysubstance abuse who presented with seizure. Neurology evaluation was appreciated and patient is on dilantin. Her gabapentin was increased and effexor held. Yesterday afternoon she had CURRICULUM DEVELOPMENT COORDINATOR for klonopin overdose. She is currently on 1:1 observation. Psychiatry is following. Case was discussed with Dr. Fonseca this morning. Patient complains of foul smelling urine. UA/UCx is ordered. Patient was counselled on medication compliance and risks of continued substance abuse. Jose M Wallace MD Hospitalist.
--- NOTE | 2018-08-03 14:53 | CP.PCM.PN ---
Subjective - Date & Time of Evaluation Date of Evaluation: 08/03/18 Time of Evaluation: 14:51 - Subjective Subjective: Neurology progress note The patient was seen and examined today at bedside. She had no new complaints. She had a seizure yesterday and was loaded with dilantin. She is on 100 mg TID and tolerating it well without side-effects. Objective - Vital Signs/Intake and Output Vital Signs (last 24 hours): Temp Pulse Resp BP Pulse Ox 98.3 F 67 18 103/67 96 08/03/18 12:00 08/03/18 12:00 08/03/18 12:00 08/03/18 12:00 08/03/18 06:00 Intake and Output: 08/03/18 08/03/18 06:59 18:59 Intake Total 240 Output Total 0 Balance 240 - Medications Medications: Current Medications Albuterol Sulfate (Albuterol 0.042% Inhal Vanessa (1.25mg/3ml) Ud) 1.25 mg IH [id number] PRN PRN Reason: Wheezing Clonazepam (Klonopin) 0.5 mg PO QID [facility]; Protocol Last Admin: 08/03/18 13:41 Dose: 0.5 mg Diphenhydramine HCl (Benadryl Maximum Strength 1%) 1 ea TOP Q6H PRN PRN Reason: Itching / Pruritus Diphenhydramine HCl (Benadryl) 25 mg PO HS [facility] Gabapentin (Neurontin) 600 mg PO QID [facility]; Protocol Last Admin: 08/03/18 13:53 Dose: 600 mg Ibuprofen (Motrin Tab) 400 mg PO Q6H PRN PRN Reason: Pain, moderate (4-7) Lorazepam (Ativan) 0.5 mg IVP Q6H PRN; Protocol PRN Reason: Seizure activity Non-Formulary Medication (Buprenorphine Hcl/Naloxone Hcl [Buprenorphin-Naloxon 8-2 Mg Sl]) 1 each SL DAILY [facility] Pantoprazole Sodium (Protonix Ec Tab) 40 mg PO 0600 [facility] Last Admin: 08/03/18 06:27 Dose: 40 mg Phenytoin (Dilantin) 100 mg IVP Q8 [facility]BI Last Admin: 08/03/18 13:42 Dose: 100 mg Venlafaxine HCl (Effexor) 37.5 mg PO BID [facility] Last Admin: 08/02/18 11:14 Dose: 37.5 mg - Labs Labs: 08/03/18 06:00 08/03/18 06:00 - Constitutional Appears: Well - Head Exam Head Exam: ATRAUMATIC, NORMAL INSPECTION, NORMOCEPHALIC - Eye Exam Eye Exam: EOMI, Normal appearance, PERRL Pupil Exam: NORMAL ACCOMODATION, PERRL - ENT Exam ENT Exam: Mucous Membranes Moist, Normal Exam - Neck Exam Neck Exam: Full ROM, Normal Inspection. absent: Lymphadenopathy - Respiratory Exam Respiratory Exam: Clear to Ausculation Bilateral, NORMAL BREATHING PATTERN - Cardiovascular Exam Cardiovascular Exam: REGULAR RHYTHM, +S1, +S2. absent: Murmur - GI/Abdominal Exam GI & Abdominal Exam: Soft, Normal Bowel Sounds. absent: Tenderness - Extremities Exam Extremities Exam: Full ROM, Normal Capillary Refill, Normal Inspection. absent: Joint Swelling, Pedal Edema - Back Exam Back Exam: NORMAL INSPECTION - Neurological Exam Neurological Exam: Alert, Awake, CN II-XII Intact, Normal Gait, Oriented x3 - Psychiatric Exam Psychiatric exam: Normal Affect, Normal Mood - Skin Skin Exam: Dry, Intact, Normal Color, Warm Assessment and Plan (1) Recurrent seizures Assessment & Plan: Continue dilantin 100 mg TID, as well as neurontin 600 mg TID. Stop Effexor. Status: Acute
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
[2018-08-03] MEDS ORDERED: DiphenhydrAMINE 50 mg/ml Inj IVP STA (21:51)
[2018-08-04] MEDS ORDERED: DiphenhydrAMINE 50 mg/ml Inj IVP STA (04:28)
[2018-08-04 06:18] LABS: BASO # 0.02 K/mm3 (0.0-2.0); BASO % 0.3 % (0.0-3.0); EOS # 0.3 (0.0-0.7); EOS % 5.3 % (1.5-5.0); HEMOGLOBIN 11.9 g/dL (12.0-16.0); LYMPH % 47.4 % (22.0-35.0); MEAN CELL VOLUME 82.5 fl (80.0-105.0); MEAN CORPUSCULAR HEMOGLOBIN 27.1 pg (25.0-35.0); MEAN CORPUSCULAR HGB CONC 32.9 g/dl (31.0-37.0); MEAN PLATELET VOLUME 11.1 fl (7.0-11.0); MONO # 0.6 (0.1-0.6); MONO % 9.3 % (1.0-6.0); RBC 4.39 10^6/uL (3.5-6.1); RED CELL DISTRIBUTION WIDTH 17.9 % (11.5-14.5); WHITE BLOOD COUNT 6.3 10^3/uL (4.5-11.0)
[2018-08-04] MEDS: Phenytoin 100 mg/2 ml Inj IVP SCH ×4 (07:07→21:27)
[2018-08-04 08:03] LABS: ALB/GLOB RATIO 1.3 (1.1-1.8); ALBUMIN 3.9 g/dL (3.0-4.8); ALT/SGPT 46 U/L (7-56); AST/SGOT 52 U/L (14-36); BLOOD UREA NITROGEN 7 mg/dL (7-21); CALCIUM 9.1 mg/dL (8.4-10.5); GFR NON-AFRICAN AMERICAN > 60
[2018-08-04] MEDS: Pantoprazole 40 mg EC Tab PO SCH (09:04)
[2018-08-04] MEDS ORDERED: Potassium Chloride 40 mEq/30 ml LIQ UD PO ONE (11:07)
--- NOTE | 2018-08-04 14:11 | CP.PCM.PN ---
<Kamlesh Hadley - Last Filed: 08/04/18 14:04> Subjective - Date & Time of Evaluation Date of Evaluation: 08/04/18 Time of Evaluation: 08:00 - Subjective Subjective: Kamlesh Hadley, PGY1 Medicine Progress Note for Dr. Wallace Patient was seen and examined at bedside this morning. Overnight, patient received toradol 30mg IVP for pain. She was explained the risks of kidney injury if she keeps receiving frequent toradol. Overnight, patient also had an episode of vomiting in which she was given IV Protonix x1 and zofran prn was added. No a dverse events from 1:1 nurse at bedside. Nursing staff was made aware of the importance of 1:1 --- that someone must always be present given patient's history of polysubstance abuse. A full 12 point ROS was conducted and unremarkable except as stated above. Objective - Vital Signs/Intake and Output Vital Signs (last 24 hours): Temp Pulse Resp BP Pulse Ox 98.5 F 81 20 95/55 L 98 08/04/18 04:55 08/04/18 06:00 08/04/18 04:55 08/04/18 04:55 08/04/18 04:55 Intake and Output: 08/04/18 08/04/18 06:59 18:59 Intake Total 600 Balance 600 - Medications Medications: Current Medications Albuterol Sulfate (Albuterol 0.042% Inhal Vanessa (1.25mg/3ml) Ud) 1.25 mg IH [id number] PRN PRN Reason: Wheezing Clonazepam (Klonopin) 0.5 mg PO QID [facility]; Protocol Last Admin: 08/04/18 09:04 Dose: 0.5 mg Diphenhydramine HCl (Benadryl Maximum Strength 1%) 1 ea TOP Q6H PRN PRN Reason: Itching / Pruritus Diphenhydramine HCl (Benadryl) 25 mg PO HS [facility] Last Admin: 08/03/18 22:05 Dose: Not Given Gabapentin (Neurontin) 600 mg PO QID [facility]; Protocol Last Admin: 08/04/18 09:04 Dose: 600 mg Ibuprofen (Motrin Tab) 400 mg PO Q6H PRN PRN Reason: Pain, moderate (4-7) Last Admin: 08/04/18 09:04 Dose: 400 mg Ketorolac Tromethamine (Toradol) 15 mg IVP Q6 PRN PRN Reason: Pain, severe (8-10) Last Admin: 08/04/18 11:30 Dose: 15 mg Lorazepam (Ativan) 0.5 mg IVP Q6H PRN; Protocol PRN Reason: Seizure activity Non-Formulary Medication (Buprenorphine Hcl/Naloxone Hcl [Buprenorphin-Naloxon 8-2 Mg Sl]) 1 each SL DAILY [facility] Last Admin: 08/04/18 10:30 Dose: Not Given Ondansetron HCl (Zofran Inj) 4 mg IVP Q4H PRN PRN Reason: Nausea/Vomiting Last Admin: 08/03/18 20:43 Dose: 4 mg Pantoprazole Sodium (Protonix Ec Tab) 40 mg PO 0600 [facility] Last Admin: 08/04/18 09:04 Dose: 40 mg Phenytoin (Dilantin) 100 mg IVP Q8 [facility] Last Admin: 08/04/18 09:03 Dose: 100 mg Venlafaxine HCl (Effexor) 37.5 mg PO DAILY [facility] - Labs Labs: 08/04/18 05:30 08/04/18 05:30 - Constitutional Appears: No Acute Distress Additional comments: - Head Exam Head Exam: ATRAUMATIC, NORMOCEPHALIC - Eye Exam Eye Exam: EOMI, Normal appearance - ENT Exam ENT Exam: Mucous Membranes Moist - Respiratory Exam Respiratory Exam: Clear to Auscultation Bilateral, NORMAL BREATHING PATTERN. absent: Rales, Rhonchi, Wheezes - Cardiovascular Exam Cardiovascular Exam: REGULAR RHYTHM, +S1, +S2 - GI/Abdominal Exam GI & Abdominal Exam: Normal Bowel Sounds, Soft. absent: Tenderness. No suprapubic tenderness. - Extremities Exam Extremities exam: Positive for: normal inspection. Negative for: pedal edema, tenderness - Neurological Exam Neurological exam: Alert, CN II-XII Intact, Oriented x3 Additional comments: Motor strength 5/5 throughout, sensation fully intact. - Psychiatric Exam Psychiatric exam: Normal Affect, Normal Mood. - Skin Skin Exam: Dry, Intact, Normal Color, Warm Assessment and Plan - Assessment and Plan (Free Text) Assessment: Patient is a 33 y/o F with PMHx seizures, asthma, pancreatitis, and EtOH/polysubstance abuse who presented for seizure likely 2/2 substance abuse vs effexor use. Patient had RN TELEPHONE TRIAGE for intentional overdose of klonopin. She is being monitored on telemetry. She is currently on 1:1 precautions. Neurology and Psych is on consult. Plan: Seizures - likely 2/2 substance abuse vs Effexor use - monitor on telemetry - c/w dilantin 100mg IVP q8 - c/w gabapentin 600mg PO QID - c/w Ativan 0.5 mg IV Q6 prn seizures - Effexor held - Neurology on consult (Dr. Miranda), recs appreciated. - c/w Seizure precautions, fall precautions - CT Head (s/p RN TELEPHONE TRIAGE): normal study - CT head: negative Intentional Klonopin Overdose - s/p RN TELEPHONE TRIAGE - RN TELEPHONE TRIAGE on 08/02 due to intentional overdose on klonopin (see full RN TELEPHONE TRIAGE report) - c/w 1:1 observation at this time - klonopin initially held; restarted by psych: klonopin 0.5mg PO QID - Psych on consult given incidental overdose (Dr. Merida). Recs appreciated. Chronic Back Pain with Hx Polysubstance Abuse (opiate dependence) - will administer toradol 15mg IVP q6 prn max x2 doses - patient explained risks of pain medications - motrin 400mg PO q6 prn - avoid narcotics and drugs that worsen seizure threshold such as tramadol - Utox: +benzo, +cannabinoids - EtOH negative Malodorous urine - urine analysis and urine cx pending - no urinary frequency, urgency, dysuria - asymptomatic, no antibx at this time Asthma - c/w Albuterol 1.25 mg IH Q6 prn GERD - c/w Protonix 40 mg PO daily PPx -SCDs -PTX -Regular diet Dispo: Monitor patient on telemetry. Continue 1:1 at this time. Follow psych recommendation for 1:1 and clearance from psychiatric standpoint. Case was discussed and reviewed with Attending Physician, Dr. Wallace. <Jose M Wallace - Last Filed: 08/04/18 14:45> Objective - Vital Signs/Intake and Output Vital Signs (last 24 hours): Temp Pulse Resp BP Pulse Ox 98.5 F 81 20 95/55 L 98 08/04/18 04:55 08/04/18 06:00 08/04/18 04:55 08/04/18 04:55 08/04/18 04:55 Intake and Output: 08/04/18 08/04/18 06:59 18:59 Intake Total 600 Balance 600 - Medications Medications: Current Medications Albuterol Sulfate (Albuterol 0.042% Inhal Vanessa (1.25mg/3ml) Ud) 1.25 mg IH [id number] PRN PRN Reason: Wheezing Clonazepam (Klonopin) 0.5 mg PO QID [facility]; Protocol Last Admin: 08/04/18 09:04 Dose: 0.5 mg Diphenhydramine HCl (Benadryl Maximum Strength 1%) 1 ea TOP Q6H PRN PRN Reason: Itching / Pruritus Diphenhydramine HCl (Benadryl) 25 mg PO HS [facility] Last Admin: 08/03/18 22:05 Dose: Not Given Gabapentin (Neurontin) 600 mg PO QID [facility]; Protocol Last Admin: 08/04/18 09:04 Dose: 600 mg Ibuprofen (Motrin Tab) 400 mg PO Q6H PRN PRN Reason: Pain, moderate (4-7) Last Admin: 08/04/18 09:04 Dose: 400 mg Ketorolac Tromethamine (Toradol) 15 mg IVP Q6 PRN PRN Reason: Pain, severe (8-10) Last Admin: 08/04/18 11:30 Dose: 15 mg Lorazepam (Ativan) 0.5 mg IVP Q6H PRN; Protocol PRN Reason: Seizure activity Non-Formulary Medication (Buprenorphine Hcl/Naloxone Hcl [Buprenorphin-Naloxon 8-2 Mg Sl]) 1 each SL DAILY [facility] Last Admin: 08/04/18 10:30 Dose: Not Given Ondansetron HCl (Zofran Inj) 4 mg IVP Q4H PRN PRN Reason: Nausea/Vomiting Last Admin: 08/03/18 20:43 Dose: 4 mg Pantoprazole Sodium (Protonix Ec Tab) 40 mg PO 0600 [facility] Last Admin: 08/04/18 09:04 Dose: 40 mg Phenytoin (Dilantin) 100 mg IVP Q8 [facility] Last Admin: 08/04/18 09:03 Dose: 100 mg Venlafaxine HCl (Effexor) 37.5 mg PO DAILY [facility] - Labs Labs: 08/04/18 05:30 08/04/18 05:30 Attending/Attestation - Attestation I have personally seen and examined this patient.: Yes I have fully participated in the care of the patient.: Yes I have reviewed all pertinent clinical information, including history, physical exam and plan: Yes Notes (Text): 08/04/18 14:42 33 year old female with past medical history of seizures, alcohol abuse and polysubstance abuse who presented with seizure. Neurology evaluation was appreciated and patient is on dilantin. Her gabapentin was increased and effexo r held. Sunday afternoon she had RN TELEPHONE TRIAGE for klonopin overdose. She is currently still on 1:1 observation. Psychiatry is following. Yesterday she complained of foul smelling urine. UA/UCx is ordered. Patient was counselled on medication compliance and risks of continued substance abuse. Jose M Wallace MD Hospitalist.
[2018-08-04 17:12] LABS: URINE BILIRUBIN NEGATIVE (NEGATIVE); URINE BLOOD NEGATIVE (NEGATIVE); URINE GLUCOSE (UA) NEGATIVE (NEGATIVE); URINE LEUKOCYTE ESTERASE TRACE Leu/uL (NEGATIVE); URINE PROTEIN NEGATIVE mg/dL (<30 mg/dL); URINE UROBILINOGEN 0.2 E.U./dL (<1 E.U./dL)
[2018-08-04 17:33] LABS: URINE APPEARANCE SL CLOUDY (CLEAR); URINE COLOR YELLOW (YELLOW)
[2018-08-04 17:53] LABS: URINE BACTERIA OCC /hpf; URINE RBC 0 - 2 /hpf (0-2)
[2018-08-04] MEDS ORDERED: DiphenhydrAMINE 50 mg/ml Inj IVP ONE (21:05)
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
[2018-08-05] MEDS ORDERED: DiphenhydrAMINE 50 mg/ml Inj IVP ONE (04:26)
[2018-08-05] MEDS: Pantoprazole 40 mg EC Tab PO SCH (06:18)
[2018-08-05] MEDS: Phenytoin 100 mg/2 ml Inj IVP SCH (06:18)
[2018-08-05 08:39] LABS: BASO # 0.03 K/mm3 (0.0-2.0); BASO % 0.5 % (0.0-3.0); EOS # 0.4 (0.0-0.7); EOS % 6.2 % (1.5-5.0); HEMOGLOBIN 11.7 g/dL (12.0-16.0); LYMPH # 2.4 (1.2-3.4); LYMPH % 36.5 % (22.0-35.0); MEAN CELL VOLUME 82.8 fl (80.0-105.0); MEAN CORPUSCULAR HEMOGLOBIN 27.2 pg (25.0-35.0); MEAN CORPUSCULAR HGB CONC 32.9 g/dl (31.0-37.0); MEAN PLATELET VOLUME 10.7 fl (7.0-11.0); MONO # 0.6 (0.1-0.6); MONO % 8.6 % (1.0-6.0); RBC 4.3 10^6/uL (3.5-6.1); RED CELL DISTRIBUTION WIDTH 17.8 % (11.5-14.5); WHITE BLOOD COUNT 6.6 10^3/uL (4.5-11.0)
[2018-08-05 08:54] LABS: ALB/GLOB RATIO 1.3 (1.1-1.8); ALBUMIN 3.7 g/dL (3.0-4.8); ALT/SGPT 46 U/L (7-56); AST/SGOT 30 U/L (14-36); BLOOD UREA NITROGEN 7 mg/dL (7-21); CALCIUM 8.8 mg/dL (8.4-10.5); GFR NON-AFRICAN AMERICAN > 60
--- NOTE | 2018-08-05 16:30 | CT ---
Date of service: 08/05/2018 PROCEDURE: CT HEAD WITHOUT CONTRAST. HISTORY: Acute visual changes 2 days ago COMPARISON: 08/02/2018 TECHNIQUE: Axial computed tomography images were obtained through the head/brain without intravenous contrast. Radiation dose: Total exam DLP = 968.03 mGy-cm. This CT exam was performed using one or more of the following dose reduction techniques: Automated exposure control, adjustment of the mA and/or kV according to patient size, and/or use of iterative reconstruction technique. FINDINGS: HEMORRHAGE: No intracranial hemorrhage. BRAIN: No mass effect or edema. No atrophy or chronic microvascular ischemic changes. VENTRICLES: Unremarkable. No hydrocephalus. CALVARIUM: Unremarkable. PARANASAL SINUSES: Unremarkable as visualized. No significant inflammatory changes. MASTOID AIR CELLS: Unremarkable as visualized. No inflammatory changes. OTHER FINDINGS: None. IMPRESSION: Normal CT of the Head.
--- NOTE | 2018-08-05 16:31 | CP.PCM.PN ---
<Kamlesh Hadley - Last Filed: 08/05/18 16:28> Subjective - Date & Time of Evaluation Date of Evaluation: 08/05/18 Time of Evaluation: 08:00 - Subjective Subjective: Kamlesh Hadley, PGY1 Medicine Progress Note for Dr. Carey Patient was seen and examined at bedside this morning. Overnight, patient requested benadryl IVP and was also given toradol. 1:[address] during time of interview. However, as per psych recs, it may be discontinued. Patient also does not meet voluntary admission to psych. Today, patient complained that she has right sided temporal peripheral vision loss. She also had occasional stuttering of speech but also spoke in full complete sentences (this is likely an example of malingering behavior). Patient is also requesting benadryl. She says her stutter speech and vision changes started yesterday but she never informed the medical team of these symptoms yesterday. Denies headache, n/v/d, abdominal pain. A full 12 point ROS was conducted and unremarkable except as stated above. Objective - Vital Signs/Intake and Output Vital Signs (last 24 hours): Temp Pulse Resp BP Pulse Ox 98.8 F 72 20 97/58 L 98 08/05/18 12:00 08/05/18 12:00 08/05/18 12:00 08/05/18 12:00 08/05/18 06:00 Intake and Output: 08/05/18 08/05/18 06:59 18:59 Intake Total 960 Balance 960 - Medications Medications: Current Medications Albuterol Sulfate (Albuterol 0.042% Inhal [place]essa (1.25mg/3ml) Ud) 1.25 mg IH [id number] PRN PRN Reason: Wheezing Clonazepam (Klonopin) 0.5 mg PO QID ABBI; Protocol Last Admin: 08/05/18 13:25 Dose: 0.5 mg Diphenhydramine HCl (Benadryl Maximum Strength 1%) 1 ea TOP Q6H PRN PRN Reason: Itching / Pruritus Diphenhydramine HCl (Benadryl) 25 mg PO HS ABBI Last Admin: 08/04/18 23:15 Dose: Not Given Gabapentin (Neurontin) 600 mg PO TID ABBI; Protocol Last Admin: 08/05/18 13:25 Dose: 600 mg Ibuprofen (Motrin Tab) 400 mg PO Q6H PRN PRN Reason: Pain, moderate (4-7) Last Admin: 08/04/18 09:04 Dose: 400 mg Ketorolac Tromethamine (Toradol) 15 mg IVP Q6 PRN PRN Reason: Pain, severe (8-10) Lorazepam (Ativan) 0.5 mg IVP Q6H PRN; Protocol PRN Reason: Seizure activity Non-Formulary Medication (Buprenorphine Hcl/Naloxone Hcl [Buprenorphin-Naloxon 8-2 Mg Sl]) 1 each SL DAILY [facility] Last Admin: 08/05/18 09:45 Dose: 1 each Ondansetron HCl (Zofran Inj) 4 mg IVP Q4H PRN PRN Reason: Nausea/Vomiting Last Admin: 08/05/18 13:26 Dose: 4 mg Pantoprazole Sodium (Protonix Ec Tab) 40 mg PO 0600 [facility] Last Admin: 08/05/18 06:18 Dose: 40 mg Phenytoin Sodium (Dilantin) 100 mg PO Q8 [facility] Last Admin: 08/05/18 13:25 Dose: 100 mg Venlafaxine HCl (Effexor) 37.5 mg PO DAILY [facility] - Labs Labs: 08/05/18 08:20 08/05/18 08:20 - Constitutional Appears: No Acute Distress Additional comments: - Head Exam Head Exam: ATRAUMATIC, NORMOCEPHALIC - Eye Exam Eye Exam: EOMI, Normal appearance. - ENT Exam ENT Exam: Mucous Membranes Moist - Respiratory Exam Respiratory Exam: Clear to Auscultation Bilateral, NORMAL BREATHING PATTERN. absent: Rales, Rhonchi, Wheezes - Cardiovascular Exam Cardiovascular Exam: REGULAR RHYTHM, +S1, +S2 - GI/Abdominal Exam GI & Abdominal Exam: Normal Bowel Sounds, Soft. absent: Tenderness. No sup rapubic tenderness. - Extremities Exam Extremities exam: Positive for: normal inspection. Negative for: pedal edema, tenderness - Neurological Exam Neurological exam: Alert, CN II-XII Intact, Oriented x3 Additional comments: Motor strength 5/5 throughout, sensation fully intact. - Psychiatric Exam Psychiatric exam: Normal Affect, Normal Mood. - Skin Skin Exam: Dry, Intact, Normal Color, Warm Assessment and Plan - Assessment and Plan (Free Text) Assessment: Patient is a 33 y/o F with PMHx seizures, asthma, pancreatitis, and EtOH/polysubstance abuse who presented for seizure likely 2/2 substance abuse vs effexor use. Patient had ACCOUNT DEVELOPMENT EXECUTIVE for intentional overdose of klonopin. She is being monitored on telemetry. Due to overdose, 1:1 precautions was enforced. Neurology and Psych is on consult and following closely. Plan: Seizures - likely 2/2 substance abuse vs Effexor use - switched from IV to dilantin 100mg PO q8 - Dilantin level is 8; will f/u with neuro to see if this is appropriate therapeutic level - will d/w with neuro about discharge seizure medications - c/w gabapentin 600mg PO TID - c/w Ativan 0.5 mg IV Q6 prn seizures - Effexor still on hold - Neurology on consult (Dr. Miranda), recs appreciated. - c/w Seizure precautions, fall precautions - CT Head x2: negative Acute Right Temporal Vision Loss (subjective) with Stuttering of Speech - likely malingering - will obtain Head CT to r/o acute issues - Neuro exam is grossly normal; will monitor Intentional Klonopin Overdose - s/p ACCOUNT DEVELOPMENT EXECUTIVE on 08/02 - Psych cleared patient; 1:1 discontinued - ACCOUNT DEVELOPMENT EXECUTIVE on 08/02 due to intentional overdose on klonopin (see full ACCOUNT DEVELOPMENT EXECUTIVE report) - c/w klonopin 0.5mg PO QID as per psych recs - Psych on consult given incidental overdose (Dr. Merida). Recs appreciated. Chronic Back Pain with Hx Polysubstance Abuse (opiate dependence) - c/w motrin 400mg PO q6 prn - Avoid administering benadryl and toradol for the patient - avoid narcotics and drugs that worsen seizure threshold such as tramadol - Utox: +benzo, +cannabinoids - EtOH negative Malodorous urine - resolved - urine analysis and urine cx negative - Asymptomatic, no antibx at this time Asthma - c/w Albuterol 1.25 mg IH Q6 prn GERD - c/w Protonix 40 mg PO daily PPx -SCDs -PTX -Regular diet PT is on board due to weakness. Dispo: Continue to monitor patient. 1:1 was discontinued. Psych cleared patient. Pending PT recs, likely tomorrow. Anticipate discharge tomorrow. Case was discussed and reviewed with Attending Physician, Dr. Carey. <Hector Carey - Last Filed: 08/07/18 07:56> Objective - Vital Signs/Intake and Output Vital Signs (last 24 hours): Temp Pulse Resp BP Pulse Ox 98.0 F 71 19 92/53 L 98 08/06/18 06:00 08/06/18 06:00 08/06/18 06:00 08/06/18 06:00 08/06/18 06:00 - Labs Labs: 08/06/18 06:00 08/06/18 06:00 Attending/Attestation - Attestation I have personally seen and examined this patient.: Yes I have fully participated in the care of the patient.: Yes I have reviewed all pertinent clinical information, including history, physical exam and plan: Yes Notes (Text): 08/07/18 07:53 Patient was seen and examined with medical assistant supervisor. 33 year old female with PMH of seizures, alcohol abuse , polysubstance abuse and non compliance with medication was admitted with seizure. Patient was evaluated by Neurology and was started on dilantin. Her gabapentin was increased and effexor has been discontinued. Sunday afternoon she had ACCOUNT DEVELOPMENT EXECUTIVE for klonopin overdose. She was evaluated by Psychiatry and was cleared. Patient is having intermittent stuttering, most of the time she is able to talk with out any problem, She is also c/o vision lose on right extreme guaze but Neuro examination is normal, we will monitor closely and will repeat CT head.Neurology is following. Patient was counselled on medication compliance and risks of continued substance abuse. Prognosis is guarded due to ongoing drug abuse and non compliance.
[2018-08-05] MEDS ORDERED: Lidocaine 5% Patch TD SCH (17:45)
--- NOTE | 2018-08-05 17:54 | CP.PCM.PCO ---
<Kamlesh Hadley - Last Filed: 08/05/18 17:48> Addendum Addendum: Short Call, PGY1 Note Patient experiencing a "panic attack". Mother, nurse pattern marking supervisor, present at bedside. She had x2 episodes of clear vomitus (non-bilious and non-bloody). Patient still stuttering her speech. This does not represent seizure like activity. Patient already given her klonopin. Zofran is already on board. Will give low dose ativan 0.5mg one time dose. She also has neck pain, will administer lidoderm patch. Patient already extensively explained the side effects of frequent toradol/tramadol use. Continue to monitor for now. <Hector Carey - Last Filed: 08/07/18 07:52> Attending/Attestation - Attestation I have personally seen and examined this patient.: Yes I have fully participated in the care of the patient.: Yes I have reviewed all pertinent clinical information: Yes
[2018-08-05] MEDS ORDERED: Phenytoin 100 mg/2 ml Inj IVP ONE (20:00)
[2018-08-05] MEDS ORDERED: DiphenhydrAMINE 50 mg/ml Inj IVP STA (21:25)
[2018-08-06] MEDS ORDERED: DiphenhydrAMINE 50 mg/ml Inj IVP STA (04:05)
[2018-08-06 06:30] VITALS: BP 92/53; PULSE 71; RESP 19; TEMP 98; O2SAT 98
[2018-08-06 06:31] LABS: BASO # 0.02 K/mm3 (0.0-2.0); BASO % 0.3 % (0.0-3.0); EOS # 0.4 (0.0-0.7); EOS % 6.5 % (1.5-5.0); HEMOGLOBIN 11.6 g/dL (12.0-16.0); LYMPH # 3.1 (1.2-3.4); MEAN CORPUSCULAR HGB CONC 32.6 g/dl (31.0-37.0); MEAN PLATELET VOLUME 10.7 fl (7.0-11.0); MONO # 0.5 (0.1-0.6); MONO % 7.8 % (1.0-6.0); RBC 4.29 10^6/uL (3.5-6.1); RED CELL DISTRIBUTION WIDTH 17.8 % (11.5-14.5); WHITE BLOOD COUNT 6.3 10^3/uL (4.5-11.0)
[2018-08-06] MEDS: Pantoprazole 40 mg EC Tab PO SCH (06:36)
[2018-08-06 07:24] LABS: ALB/GLOB RATIO 1.5 (1.1-1.8); ALBUMIN 3.8 g/dL (3.0-4.8); ALT/SGPT 35 U/L (7-56); AST/SGOT 25 U/L (14-36); BLOOD UREA NITROGEN 5 mg/dL (7-21); CALCIUM 8.6 mg/dL (8.4-10.5); GFR NON-AFRICAN AMERICAN > 60
[2018-08-06] MEDS: Potassium Chloride 20 mEq ER Tab PO ONE ×2 (10:39→10:57)
[2018-08-06] MEDS ORDERED: Potassium Chloride 20 mEq ER Tab PO ONE (11:30)
--- NOTE | 2018-08-06 15:25 | CP.PCM.DIS ---
<JomarKamlesh - Last Filed: 08/06/18 17:13> Provider - Provider Date of Admission: 08/03/18 11:34 Attending physician: Hector Carey MD Primary care physician: Kennedi Jean MD Consults: 08/02/18 06:15 Neurology Consult Routine Comment: Consulting Provider: Boy Miranda Consulting Physician: Boy Miranda Reason for Consult: Seizures 08/02/18 14:01 Psychiatry Consult Routine Comment: Consulting Provider: Magnolia Moreno Consulting Physician: Magnolia Moreno Reason for Consult: attempted possible overdose with klonopin 08/02/18 14:46 Wound Care [Nursing Referral for Wound Care] Routine Comment: Physician Instructions: Reason For Exam: scratch/cutting R thigh Time Spent in preparation of Discharge (in minutes): 35 Hospital Course - Lab Results Lab Results: Micro Results 08/04/18 14:00 Urine Random Urine Culture - Final No Growth (<1,000 CFU/ML) Most Recent Lab Values WBC 6.3 10^3/uL (4.5-11.0) 08/06/18 06:00 RBC 4.29 10^6/uL (3.5-6.1) 08/06/18 06:00 Hgb 11.6 g/dL (12.0-16.0) L 08/06/18 06:00 Hct 35.6 % (36.0-48.0) L 08/06/18 06:00 MCV 83.0 fl (80.0-105.0) 08/06/18 06:00 MCH 27.0 pg (25.0-35.0) 08/06/18 06:00 MCHC 32.6 g/dl (31.0-37.0) 08/06/18 06:00 RDW 17.8 % (11.5-14.5) H 08/06/18 06:00 Plt Count 215 10^3/uL (120.0-450.0) 08/06/18 06:00 MPV 10.7 fl (7.0-11.0) 08/06/18 06:00 Neut % (Auto) 36.4 % (50.0-68.0) L 08/06/18 06:00 Lymph % (Auto) 49.0 % (22.0-35.0) H 08/06/18 06:00 [place] % (Auto) 7.8 % (1.0-6.0) H 08/06/18 06:00 Eos % (Auto) 6.5 % (1.5-5.0) H 08/06/18 06:00 Baso % (Auto) 0.3 % (0.0-3.0) 08/06/18 06:00 Lymph # (Auto) 3.1 (1.2-3.4) 08/06/18 06:00 [place] # (Auto) 0.5 (0.1-0.6) 08/06/18 06:00 Eos # (Auto) 0.4 (0.0-0.7) 08/06/18 06:00 Baso # (Auto) 0.02 K/mm3 (0.0-2.0) 08/06/18 06:00 Absolute Neuts (auto) 2.30 (1.4-6.5) 08/06/18 06:00 pO2 37 mm/Hg (30-55) 08/02/18 06:15 VBG pH 7.30 (7.32-7.43) L 08/02/18 06:15 VBG pCO2 50.0 (40-60) 08/02/18 06:15 VBG HCO3 24.6 mmol/l (21-28) 08/02/18 06:15 VBG Total CO2 26.1 mmol.L (22-28) 08/02/18 06:15 VBG O2 Sat (Calc) 77.6 % (40-65) H 08/02/18 06:15 VBG Base Excess -2.4 mmol/L (0.0-2.0) L 08/02/18 06:15 VBG Potassium 3.4 mmol/L (3.6-5.2) L 08/02/18 06:15 Sodium 141.0 mmol/L (132-148) 08/02/18 06:15 Chloride 110.0 mmol/L (98-107) H 08/02/18 06:15 Glucose 75 mg/dl (65-105) 08/02/18 06:15 Lactate 1.2 mmol/L (0.7-2.1) 08/02/18 06:15 FiO2 21.0 % 08/02/18 06:15 Sodium 142 mmol/L (132-148) 08/06/18 06:00 Potassium 3.1 mmol/L (3.6-5.0) L 08/06/18 06:00 Chloride 108 mmol/L (98-107) H 08/06/18 06:00 Carbon Dioxide 26 mmol/L (21-33) 08/06/18 06:00 Anion Gap 10 (10-20) 08/06/18 06:00 BUN 5 mg/dL (7-21) L 08/06/18 06:00 Creatinine 0.6 mg/dl (0.7-1.2) L 08/06/18 06:00 Est GFR ( Amer) > 60 08/06/18 06:00 Est GFR (Non-Af Amer) > 60 08/06/18 06:00 Random Glucose 83 mg/dL (70-110) 08/06/18 06:00 Calcium 8.6 mg/dL (8.4-10.5) 08/06/18 06:00 Phosphorus 4.5 mg/dL (2.5-4.5) 08/02/18 05:35 Magnesium 2.1 mg/dL (1.7-2.2) 08/02/18 05:35 Total Bilirubin 0.1 mg/dL (0.2-1.3) L 08/06/18 06:00 AST 25 U/L (14-36) 08/06/18 06:00 ALT 35 U/L (7-56) 08/06/18 06:00 Alkaline Phosphatase 62 U/L (38-126) 08/06/18 06:00 Total Creatine Kinase 120 U/L (35-230) 08/02/18 15:30 Total Protein 6.3 g/dL (5.8-8.3) 08/06/18 06:00 Albumin 3.8 g/dL (3.0-4.8) 08/06/18 06:00 Globulin 2.5 gm/dL 08/06/18 06:00 Albumin/Globulin Ratio 1.5 (1.1-1.8) 08/06/18 06:00 Venous Blood Potassium 3.4 mmol/L (3.6-5.2) L 08/02/18 06:15 Urine Color Yellow (YELLOW) 08/04/18 14:00 Urine Appearance Sl cloudy (CLEAR) 08/04/18 14:00 Urine pH 6.0 (4.7-8.0) 08/04/18 14:00 Ur Specific [place] 1.015 (1.005-1.035) 08/04/18 14:00 Urine Protein Negative mg/dL (<30 mg/dL) 08/04/18 14:00 Urine Glucose (UA) Negative mg/dL (NEGATIVE) 08/04/18 14:00 Urine Ketones Negative mg/dL (NEGATIVE) 08/04/18 14:00 Urine Blood Negative (NEGATIVE) 08/04/18 14:00 Urine Nitrate Negative (NEGATIVE) 08/04/18 14:00 Urine Bilirubin Negative (NEGATIVE) 08/04/18 14:00 Urine Urobilinogen 0.2 E.U./dL (<1 E.U./dL) 08/04/18 14:00 Ur Leukocyte Esterase Trace Diamond/uL (NEGATIVE) H 08/04/18 14:00 Urine RBC 0 - 2 /hpf (0-2) 08/04/18 14:00 Urine WBC 1 - 3 /hpf (0-6) 08/04/18 14:00 Ur Epithelial Cells 4 - 5 /hpf (0-5) 08/04/18 14:00 Urine Bacteria Occ /hpf (NONE) 08/04/18 14:00 Urine Opiates Screen Negative (NEGATIVE) 08/03/18 07:46 Urine Methadone Screen Negative (NEGATIVE) 08/03/18 07:46 Ur Barbiturates Screen Negative (NEGATIVE) 08/03/18 07:46 Phenytoin 8 ug/mL (10-20) L 08/05/18 12:38 Valproic Acid < 10 ug/mL (50.0-100.0) L 08/02/18 08:08 Ur Phencyclidine Scrn Negative (NEGATIVE) 08/03/18 07:46 Ur Amphetamines Screen Negative (NEGATIVE) 08/03/18 07:46 U Benzodiazepines Scrn Positive (NEGATIVE) H 08/03/18 07:46 U Oth Cocaine Metabols Negative (NEGATIVE) 08/03/18 07:46 U Cannabinoids Screen Positive (NEGATIVE) H 08/03/18 07:46 Alcohol, Quantitative < 10 mg/dL (0-10) 08/02/18 04:08 - Hospital Course Hospital Course: Kamlesh Pal, PGY1 Discharge Summary for Dr. Carey Patient is a a 33 year old female with PMHx epilepsy, history alcohol and drug abuse (opiate dependent on suboxone), and asthma who presents to [facility] following seizure activity on 08/02. Patient is known to our service. Patient states she was walking with her when she began having a seizure, falling backwards on the ground, and this seizure lasted approximately 15 minutes. Seizure was witnessed by and she was brought in to the ED. She had biting of her lip during seizure. Patient does not follow up with a neurologist as outpatient and is not compliant with her home meds. She also takes suboxone, and states she has been trying to ween off suboxone by crushing the pills into powder and only taking a small amount of powder daily. About 1/4 of the suboxone left in her pill bottle was in powder form. Neuro was consulted. Patient had Head CT negative for acute changes. She had no seizures during hospital course. During hospital course, she had an RISK ANALYST in which she self- ingested klonopin - she took an unknown amount. Neuro adjusted medications. For seizures she was given gabapentin, dilantin, and her effexor medication was held since it can be associated with seizures. Klonopin was held. Her UDS was positive or benzo and cannibnoids. Patient explained that marijuana can decrease seizure threshold. Patient exhibits pain seeking behavior with malingering asking for iv pain meds. She was given prn max doses of toradol for chronic back pain. Psych was consulted after klonopin overdose -- they recommended 1:1. Eventually psych cleared patient to go home. She was restarted on klonopin as per psych recs. Patient had occasional vomiting episodes in which zofran was started. She also endorsed R-sided hemianopsia with stuttering speech on occassion, however, she would also speak full normal sentences. This behavior is likely intentional. Head CT was repeated after RISK ANALYST and also after her acute finding of hemianopsia and it was again, negative. PT recommended patient go home. On discharge patient will leave on: Dilantin 100mg TID, Gabapentin 600mg QID, and zofran. She will remain off effexor. Extensively educated on drug cessation. She will follow up with PMD, Neurologist, Psychiatrist, and Opthalmologist (for visual changes) as outpatient. Discharge Exam - Head Exam Head Exam: ATRAUMATIC, NORMAL INSPECTION, NORMOCEPHALIC - Eye Exam Eye Exam: EOMI, Normal appearance - ENT Exam ENT Exam: Mucous Membranes Moist - Neck Exam Neck exam: Normal Inspection - Respiratory Exam Respiratory Exam: Clear to PA & Lateral, NORMAL BREATHING PATTERN. absent: Rales, Rhonchi, Wheezes - Cardiovascular Exam Cardiovascular Exam: RRR, +S1, +S2 - GI/Abdominal Exam GI & Abdominal Exam: Normal Bowel Sounds, Soft. absent: Rebound, Rigid, Tenderness - Extremities Exam Extremities exam: normal inspection, pedal pulses present - Neurological Exam Neurological exam: Alert, CN II-XII Intact, Normal Gait, Oriented x3, Reflexes Normal - Psychiatric Exam Psychiatric exam: Normal Affect, Normal Mood - Skin Skin Exam: Dry, Intact, Normal Color, Warm Discharge Plan - Discharge Medications Prescriptions: Gabapentin [Neurontin] 600 mg PO QID #56 tab Ondansetron [Zofran] 4 mg PO Q8H PRN #9 tab PRN Reason: Nausea/Vomiting Phenytoin, Extended [Dilantin] 100 mg PO Q8 #42 cer - Follow Up Plan Condition: STABLE Disposition: HOME/ ROUTINE Instructions: Seizures, Adult (DC), Quitting Smoking, Polysubstance Abuse (DC) Additional Instructions: Please follow up with your Primary Care Doctor (Dr. Jean) within 3-4 days of discharge. You will need to follow up with seizure specialist (Dr. Lechuga) or neurologist Dr Miranda within 1 week of discharge. Follow up with opthalmologist for vision follow up. Follow up with psychiatrist for emotion/mood and anxiety disorder. You will be discharged on these new medications for your seizures: - Dilantin 100mg three times a day - Gabapentin 600mg four times a day - Zofran 4mg tablet three times a day as needed for nausea/vomiting Discontinue effexor, which can lower seizure threshold. Also, avoid tramadol which can also lower seizure threshold. Please avoid drug use, including marijuana as this can lower seizure threshold. Please return to the nearest emergency department if your symptoms worsen or reoccur. Referrals: Kennedi Jean MD [Primary Care Provider] - 7 Days Boy Miranda MD [Staff Provider] - 2 Week Magnolia Moreno MD [Staff Provider] - 2 Week Rakesh Fox MD [Staff Provider] - 2 Week Trice Lechuga MD [Staff Provider] - 2 Week <Hector Carey - Last Filed: 08/07/18 07:52> Provider - Provider Date of Admission: 08/03/18 11:34 Attending physician: Hector Carey MD Primary care physician: Kennedi Jean MD Consults: 08/02/18 06:15 Neurology Consult Routine Comment: Consulting Provider: Boy Miranda Consulting Physician: Boy Miranda Reason for Consult: Seizures 08/02/18 14:01 Psychiatry Consult Routine Comment: Consulting Provider: Magnolia Moreno Consulting Physician: Magnolia Moreno Reason for Consult: attempted possible overdose with klonopin 08/02/18 14:46 Wound Care [Nursing Referral for Wound Care] Routine Comment: Physician Instructions: Reason For Exam: scratch/cutting R thigh Hospital Course - Lab Results Lab Results: Micro Results 08/04/18 14:00 Urine Random Urine Culture - Final No Growth (<1,000 CFU/ML) Most Recent Lab Values WBC 6.3 10^3/uL (4.5-11.0) 08/06/18 06:00 RBC 4.29 10^6/uL (3.5-6.1) 08/06/18 06:00 Hgb 11.6 g/dL (12.0-16.0) L 08/06/18 06:00 Hct 35.6 % (36.0-48.0) L 08/06/18 06:00 MCV 83.0 fl (80.0-105.0) 08/06/18 06:00 MCH 27.0 pg (25.0-35.0) 08/06/18 06:00 MCHC 32.6 g/dl (31.0-37.0) 08/06/18 06:00 RDW 17.8 % (11.5-14.5) H 08/06/18 06:00 Plt Count 215 10^3/uL (120.0-450.0) 08/06/18 06:00 MPV 10.7 fl (7.0-11.0) 08/06/18 06:00 Neut % (Auto) 36.4 % (50.0-68.0) L 08/06/18 06:00 Lymph % (Auto) 49.0 % (22.0-35.0) H 08/06/18 06:00 [place] % (Auto) 7.8 % (1.0-6.0) H 08/06/18 06:00 Eos % (Auto) 6.5 % (1.5-5.0) H 08/06/18 06:00 Baso % (Auto) 0.3 % (0.0-3.0) 08/06/18 06:00 Lymph # (Auto) 3.1 (1.2-3.4) 08/06/18 06:00 [place] # (Auto) 0.5 (0.1-0.6) 08/06/18 06:00 Eos # (Auto) 0.4 (0.0-0.7) 08/06/18 06:00 Baso # (Auto) 0.02 K/mm3 (0.0-2.0) 08/06/18 06:00 Absolute Neuts (auto) 2.30 (1.4-6.5) 08/06/18 06:00 pO2 37 mm/Hg (30-55) 08/02/18 06:15 VBG pH 7.30 (7.32-7.43) L 08/02/18 06:15 VBG pCO2 50.0 (40-60) 08/02/18 06:15 VBG HCO3 24.6 mmol/l (21-28) 08/02/18 06:15 VBG Total CO2 26.1 mmol.L (22-28) 08/02/18 06:15 VBG O2 Sat (Calc) 77.6 % (40-65) H 08/02/18 06:15 VBG Base Excess -2.4 mmol/L (0.0-2.0) L 08/02/18 06:15 VBG Potassium 3.4 mmol/L (3.6-5.2) L 08/02/18 06:15 Sodium 141.0 mmol/L (132-148) 08/02/18 06:15 Chloride 110.0 mmol/L (98-107) H 08/02/18 06:15 Glucose 75 mg/dl (65-105) 08/02/18 06:15 Lactate 1.2 mmol/L (0.7-2.1) 08/02/18 06:15 FiO2 21.0 % 08/02/18 06:15 Sodium 142 mmol/L (132-148) 08/06/18 06:00 Potassium 3.1 mmol/L (3.6-5.0) L 08/06/18 06:00 Chloride 108 mmol/L (98-107) H 08/06/18 06:00 Carbon Dioxide 26 mmol/L (21-33) 08/06/18 06:00 Anion Gap 10 (10-20) 08/06/18 06:00 BUN 5 mg/dL (7-21) L 08/06/18 06:00 Creatinine 0.6 mg/dl (0.7-1.2) L 08/06/18 06:00 Est GFR ( Amer) > 60 08/06/18 06:00 Est GFR (Non-Af Amer) > 60 08/06/18 06:00 Random Glucose 83 mg/dL (70-110) 08/06/18 06:00 Calcium 8.6 mg/dL (8.4-10.5) 08/06/18 06:00 Phosphorus 4.5 mg/dL (2.5-4.5) 08/02/18 05:35 Magnesium 2.1 mg/dL (1.7-2.2) 08/02/18 05:35 Total Bilirubin 0.1 mg/dL (0.2-1.3) L 08/06/18 06:00 AST 25 U/L (14-36) 08/06/18 06:00 ALT 35 U/L (7-56) 08/06/18 06:00 Alkaline Phosphatase 62 U/L (38-126) 08/06/18 06:00 Total Creatine Kinase 120 U/L (35-230) 08/02/18 15:30 Total Protein 6.3 g/dL (5.8-8.3) 08/06/18 06:00 Albumin 3.8 g/dL (3.0-4.8) 08/06/18 06:00 Globulin 2.5 gm/dL 08/06/18 06:00 Albumin/Globulin Ratio 1.5 (1.1-1.8) 08/06/18 06:00 Venous Blood Potassium 3.4 mmol/L (3.6-5.2) L 08/02/18 06:15 Urine Color Yellow (YELLOW) 08/04/18 14:00 Urine Appearance Sl cloudy (CLEAR) 08/04/18 14:00 Urine pH 6.0 (4.7-8.0) 08/04/18 14:00 Ur Specific [place] 1.015 (1.005-1.035) 08/04/18 14:00 Urine Protein Negative mg/dL (<30 mg/dL) 08/04/18 14:00 Urine Glucose (UA) Negative mg/dL (NEGATIVE) 08/04/18 14:00 Urine Ketones Negative mg/dL (NEGATIVE) 08/04/18 14:00 Urine Blood Negative (NEGATIVE) 08/04/18 14:00 Urine Nitrate Negative (NEGATIVE) 08/04/18 14:00 Urine Bilirubin Negative (NEGATIVE) 08/04/18 14:00 Urine Urobilinogen 0.2 E.U./dL (<1 E.U./dL) 08/04/18 14:00 Ur Leukocyte Esterase Trace Diamond/uL (NEGATIVE) H 08/04/18 14:00 Urine RBC 0 - 2 /hpf (0-2) 08/04/18 14:00 Urine WBC 1 - 3 /hpf (0-6) 08/04/18 14:00 Ur Epithelial Cells 4 - 5 /hpf (0-5) 08/04/18 14:00 Urine Bacteria Occ /hpf (NONE) 08/04/18 14:00 Urine Opiates Screen Negative (NEGATIVE) 08/03/18 07:46 Urine Methadone Screen Negative (NEGATIVE) 08/03/18 07:46 Ur Barbiturates Screen Negative (NEGATIVE) 08/03/18 07:46 Phenytoin 8 ug/mL (10-20) L 08/05/18 12:38 Valproic Acid < 10 ug/mL (50.0-100.0) L 08/02/18 08:08 Ur Phencyclidine Scrn Negative (NEGATIVE) 08/03/18 07:46 Ur Amphetamines Screen Negative (NEGATIVE) 08/03/18 07:46 U Benzodiazepines Scrn Positive (NEGATIVE) H 08/03/18 07:46 U Oth Cocaine Metabols Negative (NEGATIVE) 08/03/18 07:46 U Cannabinoids Screen Positive (NEGATIVE) H 08/03/18 07:46 Alcohol, Quantitative < 10 mg/dL (0-10) 08/02/18 04:08 Attending/Attestation - Attestation I have personally seen and examined this patient.: Yes I have fully participated in the care of the patient.: Yes I have reviewed all pertinent clinical information, including history, physical exam and plan: Yes Notes (Text): 08/07/18 07:45 Patient was seen and examined with medical sales. 33 year old female with PMH of seizures, alcohol abuse , polysubstance abuse and non compliance with medication was admitted with seizure. Patient was evaluated by Neurology and was started on dilantin. Her gabapentin was increased and effexor has been discontinued. Sunday afternoon she had RISK ANALYST for klonopin overdose. She was evaluated by Psychiatry and was cleared. Patient is ambulatory at the time of discharge.There is no focal deficit. Patient was counselled on medication compliance and risks of continued substance abuse. The need of close follow up with PMD/Neurology and Psychiatry was discussed in detail. Prognosis is guarded due to ongoing drug abuse and non compliance.
== END 2018-08-06 18:53 | disposition home or self-care (01) | DRG 53 ==
LOC: ED 03:48 → ERH 05:48 → 2RNO 06:28 → OBSVTOIN 08-03 11:34
PROVIDERS: ADMIT Hospitalist; ATTEND Internal Medicine
DX: G40.909 Epilepsy, unspecified, not intractable, without status epilepticus (principal); T42.4X2A Poisoning by benzodiazepines, intentional self-harm, initial encounter; F11.20 Opioid dependence, uncomplicated; F12.10 Cannabis abuse, uncomplicated; F41.1 Generalized anxiety disorder; J44.9 Chronic obstructive pulmonary disease, unspecified; M54.9 Dorsalgia, unspecified; G89.29 Other chronic pain; K21.9 Gastro-esophageal reflux disease without esophagitis; F10.10 Alcohol abuse, uncomplicated; Z76.5 Malingerer [conscious simulation]

== ENCOUNTER 2018-08-27 14:14 | Emergency (ER) | payer MEDICAID | END 2018-08-27 20:05 | disposition home or self-care (01) | LOC: ED 14:14 ==

== ENCOUNTER 2018-09-25 22:46 | Emergency (ER) | payer MEDICAID ==
[2018-09-25 22:47] VITALS: BMI 25.7
[2018-09-25] MEDS ORDERED: Lidocaine 5% Patch TD STA (23:48)
--- NOTE | 2018-09-25 23:51 | ED PDOC ---
Arrival/HPI - General Chief Complaint: Back Pain Time Seen by Provider: 09/25/18 23:01 Historian: Patient - History of Present Illness Narrative History of Present Illness (Text): 09/25/18 23:52 33 year old female, w/ PMH of hernia repair, pancreatitis, alcohol abuse, polysubstance drug abuse, herniated disc and seizures, presents complaining of R low back pain radiating to her R buttcheek and R posterior leg which started 2 d ays ago after she was teaching her daughter how to skateboard. States that her friend attempted to pull her back to relieve the pain without relief of her pain. Patient denies any fevers, chills, chest pain, shortness of breath, abdominal pain, urinary symptoms, bowel/bladder incontinence, nausea, vomiting, diarrhea, numbness, weakness, neck pain, headache, dizziness, or any other complaint. Past Medical History - Provider Review Primary Care Provider: Parisa Lechuga - Infectious Disease Hx of Infectious Diseases: None - Tetanus Immunization Tetanus Immunization: Up to Date - Past Medical History Past Medical History: No Previous - Cardiac Hx Hypertension: No - Pulmonary Hx Asthma: Yes Hx Bronchitis: No Hx Chronic Obstructive Pulmonary Disease (COPD): Yes Hx Emphysema: No Hx Pneumonia: No Hx Sleep Apnea: No - Neurological Hx Seizures: Yes (grand mal 3 years ago) - HEENT Hx HEENT Disorder: No - Renal Hx Renal Disorder: No - Endocrine/Metabolic Hx Endocrine Disorders: No - Hematological/Oncological Hx Blood Disorders: No - Integumentary Hx Dermatological Disorder: No - Musculoskeletal/Rheumatological Hx Falls: Yes - Gastrointestinal Hx Gall Bladder Disease: Yes (CHOLECYSTECTOMY.) Hx Gastrointestinal Ulcer: Yes Hx Pancreatitis: Yes - Genitourinary/Gynecological Hx Sexually Transmitted Diseases: No - Psychiatric Hx Anxiety: Yes Hx Bipolar Disorder: No Hx Depression: Yes Hx Schizophrenia: No Hx Substance Use: Yes (Pt currently smokes marijuana) - Surgical History Hx Section: Yes - Anesthesia Hx Anesthesia: Yes Hx Anesthesia Reactions: No Hx Malignant Hyperthermia: No - Suicidal Assessment Feels Threatened In Home Enviroment: No Family/Social History Family/Social History: No Known Family HX Smoking Status: Heavy Smoker > 10 Cigarettes Daily Hx Alcohol Use: No Amount per day: 2 Hx Substance Use: Yes (Pt currently smokes marijuana) Substance used: Marijuana Hx Substance Use Treatment: No Allergies/Home Meds Allergies/Adverse Reactions: Allergies escitalopram oxalate [From Lexapro] Allergy (Verified 09/25/18 23:32) RASH FISH Allergy (Verified 09/25/18 23:32) ANAPHYLAXIS levetiracetam [From Keppra] Allergy (Verified 09/25/18 23:32) ANAPHYLAXIS Home Medications: Home Meds Medication Instructions Recorded Confirmed Buprenorphine HCl/Naloxone HCl 1.5 tab SL DAILY 07/26/18 09/25/18 [Buprenorphin-Naloxon 8-2 mg Sl] Gabapentin 300 mg PO Q8 09/10/18 09/25/18 clonazePAM [Klonopin] 0.5 mg PO Q8 09/10/18 09/25/18 Review of Systems - Review of Systems Constitutional: absent: Fatigue, Fevers Respiratory: absent: SOB, Cough Cardiovascular: absent: Chest Pain, Palpitations Gastrointestinal: absent: Abdominal Pain, Nausea, Vomiting Genitourinary Female: absent: Dysuria, Frequency, Hematuria Musculoskeletal: Back Pain. absent: Arthralgias, Neck Pain Skin: absent: Rash, Skin Lesions Neurological: absent: Headache, Dizziness Physical Exam Appearance: Positive for: Well-Appearing, Non-Toxic, Comfortable Pain Distress: Moderate Mental Status: Positive for: Alert and Oriented X 3 - Systems Exam Head: Present: Atraumatic, Normocephalic Pupils: Present: PERRL Extroacular Muscles: Present: EOMI Conjunctiva: Present: Normal Mouth: Present: Moist Mucous Membranes Neck: Present: Normal Range of Motion. No: MIDLINE TENDERNESS Respiratory/Chest: Present: Clear to Auscultation, Good Air Exchange. No: Respiratory Distress, Accessory Muscle Use Cardiovascular: Present: Regular Rate and Rhythm, Normal S1, S2. No: Murmurs Abdomen: No: Tenderness, Distention, Peritoneal Signs Back: Present: Normal Inspection, Paraspinal Tenderness (to the paralumar area). No: Midline Tenderness Upper Extremity: Present: Normal Inspection. No: Cyanosis, Edema Lower Extremity: Present: Normal Inspection. No: Edema Neurological: Present: GCS=15, CN II-XII Intact, Speech Normal, Motor Func Grossly Intact, Normal Sensory Function Skin: Present: Warm, Dry, Normal Color. No: Rashes Psychiatric: Present: Alert, Oriented x 3, Normal Insight, Normal Concentration Medical Decision Making ED Course and Treatment: 09/25/18 23:49 Patient is requesting IV medication. Patient medicated with toradol IV, flexeril PO and lidoderm patch. On reevaluation, patient reports improvement of symptoms, denies any weakness or numbness to her legs. On exam, patient remains awake alert and oriented 3 in no acute distress. Patient able to stand up and walk. Advised to follow up with primary care physician in 1-2 days without fail. Advised to take medication as prescribed. Return to the emergency room at any time for any new or worsening symptoms. Patient states she fully agrees with and understands discharge instructions. States that she agrees with the plan and disposition. Verbalized and repeated discharge instructions and plan. I have given the patient opportunity to ask any additional questions. - PA / [employer] / Resident Statement MD/DO has reviewed & agrees with the documentation as recorded. Disposition/Present on Arrival - Present on Arrival Any Indicators Present on Arrival: No History of DVT/PE: No History of Uncontrolled Diabetes: No Urinary Catheter: No History of Decub. Ulcer: No History Surgical Site Infection Following: None - Disposition Have Diagnosis and Disposition been Completed?: Yes Diagnosis: Sciatica Disposition: HOME/ ROUTINE Disposition Time: 01:45 Patient Plan: Discharge Patient Problems: Current Active Problems Problem Status Onset Sciatica Acute Condition: STABLE Discharge Instructions (ExitCare): Sciatica Additional Instructions: Thank you for letting us take care of you today. You were treated for sciatica. The emergency medical care you received today was directed at your acute symptoms. If you were prescribed any medication, please fill it and take as directed. It may take several days for your symptoms to resolve. Return to the Emergency Department if your symptoms worsen, do not improve, or if you have any other problems. Please contact your doctor in 2 days for re-evaluation and follow up. Bring any paperwork you were given at discharge with you along with any medications you are taking to your follow up visit. Our treatment cannot replace ongoing medical care by a primary care provider (PCP) outside of the emergency department. Thank you for allowing the [facility] team to be part of your care today. Prescriptions: Cyclobenzaprine [Cyclobenzaprine HCl] 10 mg PO TID PRN #15 tab PRN Reason: Muscle Spasm Lidocaine 5% [Lidoderm] 1 ea TD Q12H PRN #20 patch PRN Reason: Pain, Moderate (4-7) Meloxicam [Mobic] 15 mg PO DAILY #20 tab Referrals: Cadoo,Kennedi K A, MD [Primary Care Provider] - Follow up with primary Forms: [employer] (Khmer), WORK NOTE
[2018-09-26] MEDS ORDERED: DiphenhydrAMINE 50 mg/ml Inj IVP STA (00:52)
== END 2018-09-26 01:35 | disposition home or self-care (01) ==
LOC: ED 22:46
DX: M54.30 Sciatica, unspecified side (principal); F17.210 Nicotine dependence, cigarettes, uncomplicated; F32.9 Major depressive disorder, single episode, unspecified; R56.9 Unspecified convulsions
CPT/HCPCS: 96374; 96375; 99281; J1200; J1885

== ENCOUNTER 2018-10-04 21:42 | Emergency (ER) | payer MEDICAID, OTHER ==
[2018-10-04 21:42] VITALS: BMI 25.7
[2018-10-04 22:29] VITALS: RESP 18; TEMP 98.1
[2018-10-04] MEDS ORDERED: Lidocaine 5% Patch TD STA (22:58)
[2018-10-04] MEDS ORDERED: DiphenhydrAMINE 50 mg/ml Inj IVP STA (23:05)
--- NOTE | 2018-10-04 23:05 | ED PDOC ---
Arrival/HPI - General Chief Complaint: Back Pain Time Seen by Provider: 10/04/18 21:43 Historian: Patient - History of Present Illness Narrative History of Present Illness (Text): 10/04/18 23:07 33 year old female, w/ PMH of hernia repair, pancreatitis, alcohol abuse, polysubstance drug abuse, herniated disc and seizures, presents complaining of R upper back pain radiating to the R posterior neck and R arm x 2 weeks. States th at she was seen in this ER a few weeks ago for similar pain, she then followed up with her pmd who referred her to neuro. She saw neurologist Dr. Lechuga a few days ago who injected lidocaine in her back, so far she reports no relief. She states that the pain is worse with any kind of movement. Patient denies any fevers, chills, chest pain, shortness of breath, abdominal pain, urinary symptoms, bowel/bladder incontinence, nausea, vomiting, diarrhea, numbness, weakness, headache, dizziness, or any other complaint. PMD Jenna Past Medical History - Infectious Disease Hx of Infectious Diseases: None - Tetanus Immunization Tetanus Immunization: Up to Date - Past Medical History Past Medical History: No Previous - Cardiac Hx Hypertension: No - Pulmonary Hx Asthma: Yes Hx Bronchitis: No Hx Chronic Obstructive Pulmonary Disease (COPD): Yes Hx Emphysema: No Hx Pneumonia: No Hx Sleep Apnea: No - Neurological Hx Neurological Disorder: Yes Hx Seizures: Yes - HEENT Hx HEENT Disorder: No - Renal Hx Renal Disorder: No - Endocrine/Metabolic Hx Endocrine Disorders: No - Hematological/Oncological Hx Blood Disorders: No - Integumentary Hx Dermatological Disorder: No - Musculoskeletal/Rheumatological Hx Falls: Yes - Gastrointestinal Hx Gall Bladder Disease: Yes (CHOLECYSTECTOMY.) Hx Gastrointestinal Ulcer: Yes Hx Pancreatitis: Yes - Genitourinary/Gynecological Hx Sexually Transmitted Diseases: No - Psychiatric Hx Psychophysiologic Disorder: Yes Hx Anxiety: Yes Hx Bipolar Disorder: No Hx Depression: Yes Hx Schizophrenia: No Hx Substance Use: Yes (Pt currently smokes marijuana) - Surgical History Hx Section: Yes - Anesthesia Hx Anesthesia: Yes Hx Anesthesia Reactions: No Hx Malignant Hyperthermia: No - Suicidal Assessment Feels Threatened In Home Enviroment: No Family/Social History Family/Social History: No Known Family HX Smoking Status: Heavy Smoker > 10 Cigarettes Daily Hx Alcohol Use: Yes (Hx) Amount per day: 2 Hx Substance Use: Yes (Pt currently smokes marijuana) Substance used: Marijuana Hx Substance Use Treatment: No Allergies/Home Meds Allergies/Adverse Reactions: Allergies escitalopram oxalate [From Lexapro] Allergy (Verified 10/04/18 22:15) SWELLING FISH Allergy (Verified 10/04/18 22:15) ANAPHYLAXIS levetiracetam [From Keppra] Allergy (Verified 10/04/18 22:15) ANAPHYLAXIS ketorolac Adverse Reaction (Verified 10/04/18 22:15) ITCHING Home Medications: Home Meds Medication Instructions Recorded Confirmed Buprenorphine HCl/Naloxone HCl 1.5 tab SL DAILY 07/26/18 10/04/18 [Buprenorphin-Naloxon 8-2 mg Sl] Gabapentin 300 mg PO BID 09/10/18 10/04/18 clonazePAM [Klonopin] 0.5 mg PO BID 09/10/18 10/04/18 Review of Systems - Review of Systems Constitutional: absent: Fatigue, Fevers Respiratory: absent: SOB, Sputum Cardiovascular: absent: Chest Pain, Palpitations Gastrointestinal: absent: Abdominal Pain, Diarrhea, Vomiting Musculoskeletal: Back Pain, Neck Pain. absent: Arthralgias Skin: absent: Rash, Pruritis, Skin Lesions Neurological: absent: Headache, Dizziness Physical Exam Vital Signs Temp Pulse Resp BP Pulse Ox 10/04/18 22:12 98.1 F 89 18 124/72 97 Temperature: Afebrile Blood Pressure: Normal Pulse: Regular Respiratory Rate: Normal Appearance: Positive for: Well-Appearing, Non-Toxic, Comfortable Pain Distress: Moderate Mental Status: Positive for: Alert and Oriented X 3 - Systems Exam Head: Present: Atraumatic, Normocephalic Pupils: Present: PERRL Extroacular Muscles: Present: EOMI Conjunctiva: Present: Normal Mouth: Present: Moist Mucous Membranes Neck: Present: Normal Range of Motion. No: Meningeal Signs, MIDLINE TENDERNESS, Paraspinal Tenderness Respiratory/Chest: Present: Clear to Auscultation, Good Air Exchange. No: Respiratory Distress, Accessory Muscle Use Cardiovascular: Present: Regular Rate and Rhythm, Normal S1, S2. No: Murmurs Abdomen: No: Tenderness, Distention, Peritoneal Signs Back: Present: Normal Inspection, Paraspinal Tenderness (+R upper parathoracic tenderness). No: Midline Tenderness Upper Extremity: Present: Normal Inspection. No: Cyanosis, Edema Lower Extremity: Present: Normal Inspection. No: Edema Neurological: Present: GCS=15, CN II-XII Intact, Speech Normal, Motor Func Grossly Intact, Normal Sensory Function Skin: Present: Warm, Dry, Normal Color. No: Rashes Psychiatric: Present: Alert, Oriented x 3, Normal Insight, Normal Concentration Medical Decision Making ED Course and Treatment: 10/04/18 23:04 Plan : - IV - toradol IV - benadryl IV - lidoderm patch - flexeril PO 10/05/18 00:15 On reevaluation, patient no improvement of symptoms, denies any CP or SOB. On exam, patient remains awake alert and oriented 3 in mild painful distress. She is asking for narcotic medication as the medications given earlier did not improve her pain. [place] [employer] SU[employer] shows that the patient is receiving suboxone treatment from Dr. Kendy Ovalles in [place]. When patient was asked if she ever took suboxone she states that she was being weaned off of it and did admit to receiving a Rx for suboxone from Dr. Ovalles, but did admit to filling a Rx last month. Patient offered tylenol IV, which she agreed to. 10/05/18 00:30 Patient eloped, tylenol IV ordered, but not given to the patient since she left the ER. - Medication Orders Current Medication Orders: Cyclobenzaprine HCl (Flexeril) 10 mg PO STAT STA Stop: 10/04/18 22:59 Ketorolac Tromethamine (Toradol) 30 mg IVP STAT STA Stop: 10/04/18 22:59 Lidocaine (Lidoderm) 1 ea TD STAT STA Stop: 10/04/18 22:59 - PA / AUDIO PRODUCTION ENGINEER / Resident Statement /DO has reviewed & agrees with the documentation as recorded. Disposition/Present on Arrival - Present on Arrival Any Indicators Present on Arrival: No History of DVT/PE: No History of Uncontrolled Diabetes: No Urinary Catheter: No History of Decub. Ulcer: No History Surgical Site Infection Following: None - Disposition Have Diagnosis and Disposition been Completed?: Yes Diagnosis: Back pain Disposition Time: 00:30 (Pt eloped. ) Patient Problems: Current Active Problems Problem Status Onset Back pain Acute Condition: UNKNOWN Discharge Instructions (ExitCare): Upper Back Pain (DC) Additional Instructions: Thank you for letting us take care of you today. You were treated for back pain. The emergency medical care you received today was directed at your acute sympt oms. Return to the Emergency Department if your symptoms worsen, do not improve, or if you have any other problems. Please contact your doctor in 2 days for re-evaluation and follow up. Bring any paperwork you were given at discharge with you along with any medications you are taking to your follow up visit. Our treatment cannot replace ongoing medical care by a primary care provider (PCP) outside of the emergency department. Thank you for allowing the [facility] team to be part of your care today. Referrals: PCP,NO [Primary Care Provider] - Follow up with primary Forms: [employer] (Bahamian)
[2018-10-05 00:18] VITALS: BP 120/79; PULSE 78; O2SAT 99
== END 2018-10-05 00:30 | disposition left against medical advice (07) ==
LOC: ED 21:42
DX: M54.6 Pain in thoracic spine (principal); F17.210 Nicotine dependence, cigarettes, uncomplicated; J44.9 Chronic obstructive pulmonary disease, unspecified
CPT/HCPCS: 81025; 96374; 96375; 99283; J1200; J1885